=== PATIENT | female | born 2000 | race Caucasian/White ===

== ENCOUNTER → 2023-08-03 | Outpatient (CLI) | payer OTHER, SELFPAY ==
--- NOTE | 2023-08-03 16:52 | RAD_ITS ---
INDICATION: pain EXAMINATION/TECHNIQUE: X-RAY - LEFT XR Ankle 3 VIEWS COMPARISON: FINDINGS: SOFT TISSUES: Lateral soft tissue swelling. No radiopaque foreign body. BONES/JOINTS: No acute fracture or subluxation.. Normal alignment. There is a possible calcific density at the lateral aspect of the talotibial articulation.. No sclerotic or destructive changes observed. RAD/Ankle min 3 Views IMPRESSION: There is a possible calcific density at the lateral aspect of the talotibial articulation. Electronically Signed: Xander March DO at 17:23 EDT ,
== END | disposition home or self-care (01) ==
PROVIDERS: PCP Family Medicine; Referring Provider Physician Assistant; Visit Provider Physician Assistant
DX: S93.402A Sprain of unspecified ligament of left ankle, initial encounter (principal); X58.XXXA Exposure to other specified factors, initial encounter
CPT/HCPCS: 73610

== ENCOUNTER 2023-08-05 09:26 | Outpatient (RCR) | payer OTHER, SELFPAY ==
--- NOTE | 2023-08-08 08:53 | HP.PTEVAL ---
Patient's Visit Information Visit Information Visit Information: LONI VERA is a 23 year old F referred to Physical Therapy by NILES Fields with a diagnosis of L ankle sprain. Date of Evaluation: 08/05/23 Physical Therapist: Hugo Wolfe DPT Visit Plan Frequency: 1x/Week Duration: 4 Weeks Plan: Start with active ROM of L ankle, add in edema control. Progress early WBing as tolerated. Progress to banded exercises as tolerated. pt. to initially trial on own, but to follow up in a few weeks if not improving. Subjective Subjective: Pt. is here today for his initial evaluation with diagnosis of L ankle sprain. Pt. reports 2 days ago she was hitting playing volleyball and landed on someone's foot that was under the net. She landed in an INV positioning. She reports feeling a pop like cracking celery. Pt. has been walking with crutches, but reports feeling better today. Pt. has been icing and using compression. 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 Pt. denies N/T in her LE. Pt. does have lateral ankle pain and marked edema with bruising. Pt. reports overall much better than she was 2 days previously. No other adverse issues going on. Pt. is back to work, but is able to sit with intermittent standing. Pt. is hopeful to get back to all recreational and work activities without limitations. Pain L lateral ankle: Pain Intensity (Out of 10): 3 Pain Intensity Range: 2 and 6 Objective Objective: POSTURE: Pt. has descent posture in stance, slight wt. shift off LLE in stance. Pt. is able to bear wt., but is antalgic during L stance phase. PALPATION: Pt. has tenderness along distal end of fibula. pt. has marked pain at ATFL and CFL regions. Pt. has lateral edema and marked bruising inferior to lateral melleolus. NEURO: Pt. has normal sensation and normal DTR throughout BLEs. ROM: L ankle; AROM: DF 0deg, PF 28deg, INV 14deg, EVR 3deg. Pt. increased pain with EVR and with DF. Tightness noted throughout PROM: DF 3deg, PF 38deg, INV not stressed, EVR 8deg. MMT: L ankle DF 4/5, PF 4/5, EVR 4-/5, INV 4/5. Pt. reports overall doing okay with MMT, but does presents with some weakness. GAIT: PT. ambulates with crutches with decent WBing throughout BLEs. Pt. is slightly more flat footed with L foot, minimal rocker moment noted. Pt. has increased antalgic pattern without use of AD. STAIRS: Step to pattern with use of 1 HR. SPECIAL TESTING: Pt. has pain with anterior draw, but no marked laxity. Pt. is swollen and guarded with testing, difficult to full assess ligament laxity. Same with talar tilt to assess CFL. Balance/Special Test Scores Lower Extremity Functional Score: 49 Goals Goal 1:: LTG: Pt. to be I with HEP for L ankle ROM and strengthening. Goal Time Frame: 4-6 Weeks Goal 2:: STG: Pt. to have decreased edema, symmetrical to R ankle. Goal Time Frame: 2 Weeks Goal 3:: LTG: PT. to have increased L ankle ROM symmetrical to R side. Goal Time Frame: 2-4 Weeks Goal 4:: STG: Pt. to progress with walking to no AD without use of crutches. Goal Time Frame: 2 Weeks Goal 5:: LTG: Pt. to have 5/5 strength throughout L ankle. Goal Time Frame: 4-6 Weeks Rehabilitation Potential Physical Therapy Diagnosis: Pt. bailey signs and symptoms consistent with a grade II L lateral ankle sprain. Hard to fully test ligament laxity, but bruising suggest some tearing. Pt. would benefit from PT to address her hypomobility, weakness, swelling and increased pain. Rehabilitation Potential: Excellent Anticipated Interventions Patient/Client Instruction: Educate patient on: Condition, Plan of Care, Risk Factors and Benefits of Fitness Program For the Purpose of:: To facilitate caregiver knowledge, To improve self management, To prevent re-injury and To improve ability to perform tasks related to life management Therapeutic Exercise to Include: Strength training, Power training, Flexibilty training, Gait and locomotor training, Passive ROM and Active ROM For the Purpose of:: To decrease pain, To increase ROM, To improve nutrient delivery to tissue, To increase oxygenation perfusion, To improve muscle performance and motor function, To improve ability to perform ADL's, To improve gait and locomotor functions, To improve health of tissue, To decrease soft tissue restriction and To increase flexibility/ROM Cryotherapy (ice pack, ice massage): Yes Vasopneumatic device: Yes For the Purpose of:: To decrease pain, To decrease swelling/inflammation and To increase ROM Text: Thank you for the opportunity to evaluate your patient. For Medicare and Medicare HMO plans, please review the plan of care and approve it. It will need to be FAXED BACK to us at [phone] for Medicare purposes. For Medicare only, by signing this I certify the plan of care. Please let me know if there are questions or concerns regarding this plan of care. Physician Signature: Date:
== END 2023-08-05 19:00 | disposition home or self-care (01) ==
LOC: PT 09:26
PROVIDERS: PCP Family Medicine; Referring Provider Physician Assistant; Visit Provider Physician Assistant
DX: S93.402D Sprain of unspecified ligament of left ankle, subsequent encounter (principal)
CPT/HCPCS: 97161

== ENCOUNTER → 2023-12-12 | Outpatient (CLI) | payer OTHER, SELFPAY ==
[2023-12-12 15:37] LABS: Color, Urine Yellow (Yellow); Glucose, Dipstick Normal (Normal); Ketone-Dipstick Negative (Negative); Leukocyte Esterase-Dipstick 500 /ul (Negative); Nitrite-Dipstick Positive (Negative); Occult Blood-Urine 25 /ul (Negative); Protein-Dipstick 30 mg/dl (Negative); Urine Clarity Sl. Cloudy (Clear); Urine Urobilinogen 8 mg/dl (Normal)
[2023-12-12 16:11] LABS: Urine Bilirubin Dipstick 3 mg/dL (Negative)
== END | disposition home or self-care (01) ==
LOC: MTLAB 13:43
PROVIDERS: PCP Family Medicine; Referring Provider Physician Assistant; Visit Provider Physician Assistant
DX: R39.9 Unspecified symptoms and signs involving the genitourinary system (principal)
CPT/HCPCS: 81002; 87086; 87088

== ENCOUNTER → 2023-12-15 | Outpatient (CLI) | payer OTHER, SELFPAY ==
--- NOTE | 2023-12-15 13:13 | RAD_ITS ---
INDICATION: sob on exertion EXAMINATION/TECHNIQUE: X-RAY - XR Chest 2 Views COMPARISON: None. FINDINGS: Mild hyperinflation. Lungs are otherwise clear. The cardiomediastinal silhouette is unremarkable. No pleural effusion or pneumothorax. No acute osseous abnormalities. RAD/Chest PA and Lateral IMPRESSION: Mild hyperinflation which can be seen in asthma. Electronically Signed: Sen Brooks MD at 22:28 EST ,
--- OUTSIDE RECORDS SUMMARY | 2023-12-15 13:53 | XMS RPT_ITS | CCD ---
Author Name Unknown Address [address] [place] [address] Organization [facility] Care Team Providers Care Photographic Laboratory Technician Name Role Phone Adams PEDIATRIC UROLOGIST, Bindyaben Primary Care Provider Dread Corona MD Unavailable ADAMS, BINDYABEN Primary Care Unavailable BARRIOS, RODOLFO~[id number] BARRIOS Attending Un available BARRIOS, RODOLFO~[phone] BARRIOS Referring Un available ADAMS, BINDYABEN Primary Care Unavailable DREAD CORONA Attending Unavailable ADAMS, BINDYABEN Primary Care Unavailable SEAGRAVES BERTHA, BERTHA~[id number] SEAGRAVES Attending Unavailable SEAGRAVES BERTHA, BERTHA~[id number] SEAGRAVES Referring Unavailable ADAMS, BINDYABEN Attending Unavailable ADAMS, BINDYABEN Primary Care Unavailable ORDER, TRANSCRIBE Attending Unavailable ORDER, TRANSCRIBE Referring Unavailable ADAMS, BINDYABEN Primary Care Unavailable ADAMS, BINDYABEN Attending Unavailable ADAMS, BINDYABEN Referring Unavailable ADAMS, BINDYABEN Primary Care Unavailable BARRIOS, RODOLFO~[id number] BARRIOS Attending Un available BARRIOS, RODOLFO~[phone] BARRIOS Referring Un available ADAMS, BINDYABEN Primary Care Unavailable SEAGRAVES BERTHA, BERTHA~[id number] SEAGRAVES Attending Unavailable SEAGRAVES BERTHA, BERTHA~[id number] SEAGRAVES Referring Unavailable ADAMS, BINDYABEN Primary Care Unavailable HERRERA, XOCHILT P Attending Unavailable ADAMS, BINDYABEN Primary Care Unavailable HERRERA, XOCHILT P Attending Unavailable HERRERA, XOCHILT P Referring Unavailable ADAMS, BINDYABEN Primary Care Unavailable ORDER, TRANSCRIBE Attending Unavailable ADAMS, BINDYABEN Primary Care Unavailable Jennifer MONTENEGRO, Ildefonso Baltazar Unavailable [phone] Physical Therapy, Israel Cardenas Unavailable Mehnaz VP MEDICAL, Tonya Unavailable Fernando WRIGHT, Demetra Santos Unavailable [phone] Steven MONTENEGRO, Gustavo Nava Unavailable Thea WRIGHT, Denia Egan Unavailable Pura Wyatt MA Unavailable Unavailable Steve VP MEDICAL, Esperanza Unavailable Unavailable King YELITZA-C, Jhonatan Mace Unavailable [phone] Shira CARRILLO, Denia Baltazar Unavailable Unavaila luis Kate VP MEDICAL, Coty Unavailable Unavailable Aleyda CARRILLO, Ruth Y Unavailable Unavailable Valentino WRIHGT, Martin Santos Unavailable Raghu (Sukumar), Zac Unavailable Unavailab le Richert VP MEDICAL, Brooklynn Roach Unavailable Unavailab le Evy VP MEDICAL, Elizabeth Cassandra Unavailable Unavailab le Sophia VP MEDICAL, Ciera Streeter Unavailable Unavailab le Uptain CNM, Crystal K Unavailable Vess VP MEDICAL, Divya L Unavailable Unavailable Wengerd VP MEDICAL, Aurora Unavailable Unavailabl e Zaugg VP MEDICAL, Laila Unavailable Unavailable Unavailable Unavailable ILDEFONSO WYNN Consulting Unavailable MARTIN AVELAR Admitting Unavailable MARTIN AVELAR Primary Care Unavailable MARTIN AVELAR Attending Unavailable PROVIDER, UNKNOWN Consulting Unavailable PROVIDER, UNKNOWN Consulting Unavailable PROVIDER, UNKNOWN Consulting Unavailable Urologist Provider Unavailable Unavailable Medications Current Medications Medication Drug Class(es) Dates Sig (Normalized) Sig (Original) [id number] 200 actuat albuterol 0.09 mg/actuat metered dose inhaler (11 sources) beta2-Adrenergic Agonist Start: 10-07-2023 take 2 puff(s) by inhalation every four to six hours as needed Ventolin HFA 90 mcg/actuation aerosol inhaler ; 2 (two) puff(s) every 4-6hrs prn for 0 days Quantity: 1 {Each} Refills: 1 Ordered: 07-Oct-2023 ALFREDO Wyatt Start: 07-Oct-2023 Completed/Discontinued Medications Medication Drug Class(es) Dates Sig (Normalized) Sig (Original) amoxicillin 875 mg / clavulanate 125 mg oral tablet (9 sources) Penicillin-class Antibacterial Start: 04-06-2018 End: 11-28-2023 amoxicillin 875 mg-potassium clavulanate 125 mg tablet ; 1 (one) tablet BID for 10 days Quantity: 20 {Tablet} Refills: 0 Ordered: 18-Nov-2023 KYLE Avelar Start: 18-Nov-2023 End: 28-Nov-2023 Status: Inactive Problems Active Problems Problem Classification Problem Date Documented Date Episodic/Chronic Acute and chronic tonsillitis (1 source) Acute tonsillitis, unspecified; Translations: [Acute tonsillitis, unspecified] Onset: 12-09-2022 Episodic Acute bronchitis (8 sources) Acute bronchitis; Translations: [Acute bronchitis, unspecified] 05-28-2020 Episodic Anxiety disorders (20 sources) Generalized anxiety disorder; Translations: [Generalized anxiety disorder] 11-18-2023 Chronic Asthma (12 sources) Exercise-induced asthma; Translations: [Exercise induced bronchospasm] 11-18-2023 Chronic Conditions associated with dizziness or vertigo (4 sources) Labyrinthitis, unspecified 03-24-2011 Episodic Genitourinary symptoms and ill-defined conditions (20 sources) Urinary symptoms ; Translations: [Unspecified symptoms and signs involving the genitourinary system] 11-18-2023 Episodic Immunizations and screening for infectious disease (5 sources) Contact with and (suspected) exposure to other viral communicable diseases; Translations: [Need for prophylactic vaccination and inoculation against influenza] Onset: 12-23-2021 09-15-2012 Episodic Inflammation; infection of eye (except that caused by tuberculosis or sexually transmitteddisease) (4 sources) Conjunctivitis; Translations: [Other mucopurulent conjunctivitis, left eye] 10-07-2016 Episodic Influenza (8 sources) Influenza; Translations: [Influenza due to unidentified influenza virus with other respiratory manifestations] 05-28-2020 Episodic Lymphadenitis (4 sources) Cervical lymphadenopathy; Translations: [Localized enlarged lymph nodes] Onset: 07-20-2022 Episodic Malaise and fatigue (4 sources) Fatigue; Translations: [Other fatigue] 05-15-2014 Episodic Menstrual disorders (8 sources) Irregular periods; Translations: [Irregular menstruation, unspecified] 05-28-2020 Chronic Nonmalignant breast conditions (4 sources) Breast lump; Translations: [Unspecified lump in unspecified breast] 10-27-2012 Episodic Other aftercare (17 sources) Patient encounter status; Translations: [Other termite treater helper (current) drug therapy] Episodic Other infections; including parasitic (4 sources) H/O: chickenpox; Translations: [Personal history of other infectious and parasitic diseases] 05-28-2020 Episodic Other lower respiratory disease (9 sources) Dyspnea on exertion; Translations: [Shortness of breath] 11-18-2023 Episodic Other lower respiratory disease (4 sources) Cough; Translations: [Cough] 01-17-2017 Episodic Other skin disorders (9 sources) Acne vulgaris; Translations: [Acne vulgaris] Episodic Other upper respiratory disease (4 sources) Allergic disposition; Translations: [Other allergic rhinitis] 10-07-2016 Chronic Other upper respiratory disease (4 sources) Seasonal allergic rhinitis; Translations: [Other seasonal allergic rhinitis] 09-24-2015 Chronic Other upper respiratory infections (8 sources) Sinusitis; Translations: [Chronic sinusitis, unspecified] 12-27-2017 Chronic Other upper respiratory infections (20 sources) Sore throat symptom; Translations: [Acute pharyngitis, unspecified] Onset: 08-11-2022 Episodic Otitis media and related conditions (8 sources) Otitis media of bilateral ears; Translations: [Otitis media, unspecified, bilateral] 11-18-2023 Episodic Residual codes; unclassified (12 sources) Finding of body mass index; Translations: [Body mass index (BMI) pediatric, 5th percentile to less than 85th percentile for age] 05-28-2020 Episodic Residual codes; unclassified (8 sources) Body mass index 20-24 - normal; Translations: [Body mass index (BMI) 22.0-22.9, adult] 05-28-2020 Episodic Residual codes; unclassified (8 sources) Up-to-date with immunizations; Translations: [Personal history of other drug therapy] 11-18-2023 Episodic Residual codes; unclassified (8 sources) Influenza vaccination declined; Translations: [Immunization not carried out because of patient refusal] 05-28-2020 Episodic Residual codes; unclassified (8 sources) Non-smoker; Translations: [Other specified health status] 05-28-2020 Episodic Skin and subcutaneous tissue infections (4 sources) Impetigo; Translations: [Impetigo, unspecified] 12-13-2016 Episodic Sprains and strains (4 sources) Strain of knee; Translations: [Strain of unspecified muscle(s) and tendon(s) at lower leg level, left leg, initial encounter] 06-02-2016 Episodic Unclassified (4 sources) control (initial visit) - The patient's motivation for contraception is the prevention of . Parental consent was not necessary. Previous methods of contraception have included: oral contraceptives (sprintec). The prior methods were considered to be successful. Previous pregnancies: none. Previous abortions/miscarriag es: none. The patient denies breast discharge, headaches, jaundice, overdue menses, menstrual irregularities, vaginal bleeding or vaginal discharge. There is no STD history pertinent to this complaint. Note for Contraception : Was previously on oral contraception (sprintec). States she gained a lot of weight with pill and knows she does not want pill again.Patient will be moving to [place] in February. States she is unsure which form of contraception she is wanting at this time.She is not currently on a form of contraception. She reports normal cycles. She is not currently sexually active. 12-23-2022 Unclassified (4 sources) Vertigo - The onset of the vertigo has been sudden and has been occurring in a persistent pattern for 10 days. The course has been constant. The vertigo is characterized as lightheadedness, spinning of the environment and feeling in the head. The symptoms include loss of balance and headache, but do not include difficulty walking, hearing loss, tinnitus, nausea or vomiting. There has been no associated anxiety or fever. Note for Vertigo : -Chronic allergies and stuffiness. Using Claritin and nose spray. Also states she is light sensitive. 09-24-2015 Unclassified (1 source) asthma - Pt feels short of breath (very much with exercise but sometimes even when talking to people or eating). 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 Previously told she had exercise induced asthma - no history of this then in high school and very active. SOB has been since 2019.No heartburn.No night sweats or chills.Will have pain in LUQ/epigastric area at times - that has only been for the past week or so. Pt has some swollen lymph nodes on the right side of her neck. Pt had some dysuria yesterday but none today. 12-15-2023 Urinary tract infections (2 sources) Recurrent urinary tract infection; Translations: [Urinary tract infection, site not specified] 12-14-2023 Episodic Past or Other Problems Problem Classification Problem Date Documented Date Episodic/Chronic Other aftercare (1 source) Other intermediate (current) drug therapy; Translations: [Other termite treater helper (current) drug therapy] Onset: 05-26-2022 Episodic Other skin disorders (1 source) Acne vulgaris; Translations: [Acne vulgaris] Onset: 05-26-2022 Episodic Unclassified (4 sources) UTI - Symptoms include urinary urgency. Note for UTI : Pt was treated for pyelonephritis and is still having urgency, pt denies any pain. No fever or back pain. Has nexplanon so has menstrual irregularity from that. Negative test. Feels a pressure and has less of it after urination.Denies constipation. 11-18-2023 Unclassified (4 sources) UTI - Symptoms include dysuria, urinary frequency, urinary urgency and flank pain (right flank), but do not include hematuria, malodorous urine, abdominal pain or back pain. The pain is located in the right flank. There is no radiation. The patient describes the pain as sharp and burning. Onset was gradual 4 day(s) ago. There is no known event that preceded symptom onset. The symptoms occur constantly. The patient describes this as moderate in severity and worsening. Symptoms are not relieved by phenazopyridine. Associated symptoms include fever (Patient reports feeling feverish, but has not checked her temperature.), chills and nausea, but do not include vomiting, urinary incontinence, urethral discharge or vaginal discharge. Note for UTI : Patient last took AZO yesterday.She was treated for a UTI last month with Bactrim and reports complete resolution of her symptoms at the time. 11-04-2023 Unclassified (2 sources) UTI - Symptoms include dysuria, urinary frequency, urinary urgency and abdominal pain, but do not include hematuria, malodorous urine, flank pain or back pain. The pain is located in the suprapubic area. There is no radiation. The patient describes the pain as aching and burning. Onset was gradual 3 day(s) ago. There is no known event that preceded symptom onset. The symptoms occur constantly. The patient describes this as mild and worsening. Associated symptoms do not include fever, chills, nausea, vomiting or vaginal discharge. Note for UTI : Patient has no history of UTIs and denies any new sexual contacts. 10-07-2023 Unclassified (2 sources) [ADDITIONAL REASON] Concern - Patient also has a concern today over increasing anxiety. She has been treated for anxiety and depression in the past and was most recently treated with escitalopram. She reports having good success with escitalopram, but feeling like it did dull her emotions. She has been off of her medication for at least 6 months, but has not a recent increase in anxiety. She reports daily anxiety symptoms with associated shortness of breath at times. 10-07-2023 Unclassified (4 sources) control (initial visit) - The patient's motivation for contraception is the prevention of . The patient is requesting a contraceptive implant. Parental consent was not necessary. Previous methods of contraception have included: oral contraceptives. The prior methods were considered to be successful yet inconvenient. Previous pregnancies: none. Previous abortions/miscarriage s: none. There is no STD history pertinent to this complaint. Note for Contraception : Pt denies any chance of at this time 02-21-2023 Unclassified (4 sources) Follow up for multiple chronic conditions - The patient is here for follow-up of anxiety. 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 She did notice that this feeling resolved once she stopped the medication.). The patient has an active lifestyle but no regular exercise program. The patient's dietary compliance is fairly good usually adhering to recommendations. The patient states that breathing effort is more difficult (both chest pain and SOB related to anxiety. She does not feel these symptoms if she is not feeling anxious.), weight has increased (up 15 lbs) and headaches are rarely noted. Note for Multiple chronic conditions follow-up : Patient reports that she has noted an increase in her anxiety over the last 3-4 months. She reports symptoms of nervousness, overthinking, and worrying most days. She will at times have episodes of shortness of breath and cold sweats when she is feeling anxious. She denies any suicidal thoughts. She is nervous about returning to school with her anxiety the way it currently is. She has reached out to counseling services at her school. She will be graduating in February. 06-29-2022 Unclassified (2 sources) Well adult female - The patient feels well with no complaints. The patient has a balanced diet. The patient exercises daily. The patient sleeps 8 hours per night. Note for Well adult female : Reviewed by Demetra King PA-C. 05-28-2020 Unclassified (2 sources) [ADDITIONAL REASON] Anxiety - The onset of the anxiety has been acute and has been occurring in an intermittent pattern for 4 months. The anxiety is characterized as nervousness and extreme fear. There are no specific phobias. There were no precipitating factors. The symptoms have been associated with breathlessness, chest pain, dizziness, feeling of sadness, headache, lightheadedness, palpitations, sweating and tremors, but have not been associated with migraine, mutism, nausea, paresthesias, paralysis, personality change, retching, suicidal thoughts, tetany, vomiting or weight loss. Note for Anxiety : Patient states that she has been having anxiety for some time, but it has worsened recently with getting ready to start college. She reports feeling anxious and worried most days and that she recently had a panic attack. During her panic attack, she describes that she had shortness of breath, sweating, and a racing heart. She expresses interest in taking something to help with her anxiety at this time. 05-28-2020 Unclassified (4 sources) Breathing trouble - The onset of the breathing trouble has been gradual and has been occurring in a persistent pattern for 6 weeks. The breathing trouble is mild to moderate. It is described as tightness. The breathing trouble occurs on exertion. Note for Breathing trouble : -Peak flow 300:370:280 01-30-2020 Unclassified (4 sources) Cold Symptoms - Symptoms include nasal congestion (improving), runny nose, scratchy throat, dry cough (s.o.b. at times especially when playing volleyball), productive cough and general malaise, but do not include sneezing, ear pain, ear fullness, wheezing or fever. The onset was gradual 2 week(s) ago. The symptoms occur constantly. The patient describes this as moderate in severity and worsening (cough...feels sinuses have improved with augmentin). Current treatment includes non-prescription cold medication and antibiotics (augmentin [phone] from [facility] 10 days ago. Pt. still has 5 pills left.). Risk factors do not include smoking. The patient has not been exposed to an individual with similar symptoms. Medical history includes recurrent sinusitis, but patient denies history of asthma or tonsillectomy. 08-01-2019 Unclassified (4 sources) Well child visit #4 - 13 to 17 years - The child is here for a 16 to 17 year well-child visit. The primary caregiver is the mother and father. Family status: coping adequately. There are no behavioral problems. The patient has a balanced diet and is eating a variety of foods. The child sleeps 8 hours at night. Menstruation: regular periods (on ocp). The child performs well in school, interacts well with peers and participates in extracurricular activities. 05-30-2019 Unclassified (4 sources) Well child visit #4 - 13 to 17 years - The child is here for a 16 to 17 year well-child visit. The primary caregiver is the mother and father. Help and support are being provided by the father. Family status: coping adequately. There are no behavioral problems. The patient has a balanced diet and is eating a variety of foods. There are no eating difficulties. Meals/day: 3. The child sleeps 8 hours at night. Menstruation: irregular periods. The child performs well in school, interacts well with peers and participates in extracurricular activities. Safety measures taken include appropriate use of safety belts and home smoke detectors. 06-08-2018 Unclassified (4 sources) Cold Symptoms - Symptoms include nasal congestion, runny nose, purulent discharge, ear pain, ear fullness, sore throat, dry cough and headache, but do not include sneezing, fever, chills or general malaise. The onset was gradual 1 week(s) ago. The symptoms occur frequently. The patient describes this as moderate in severity and unchanged. Current treatment includes non-prescription cold medication and allergy medications. Risk factors do not include smoking. The patient has not been exposed to an individual with similar symptoms. Medical history includes seasonal allergies, but patient denies history of recurrent sinusitis, asthma, tonsillectomy or recurrent ear infections. 04-06-2018 Unclassified (4 sources) Cold Symptoms - Symptoms include nasal congestion, runny nose, ear pain, ear fullness (pressure), productive cough, chills, general malaise (body aches, dizziness) and headache. The onset was 2 day(s) ago (Was seen on 12/26/2017 for sinusitis, was given Cephalexin. Mother reports that she did not read the directions correctly, was giving 2 tabs once daily instead of 2 tabs BID.). The patient describes this as moderate in severity and worsening. Current treatment includes non-prescription cold medication (Advil cold and sinus) and antibiotics. The patient has been exposed to an individual with a cough (was exposed to a friend who tested postive for the flu 2 days ago). Medical history includes recurrent sinusitis, but patient denies history of asthma or tonsillectomy. 01-10-2018 Unclassified (4 sources) Acne - The onset of the acne has been gradual and has been occurring for years. Note for Acne : -Went to [facility] and tried some therapies. They think it is hormone related and suggested eval with PCP for OCP. She is using a special soap from their boutique. Her menses are irregular. 12-27-2017 Unclassified (4 sources) Well child visit #4 - 13 to 17 years - The child is here for a 15 to 16 year well-child visit. The primary caregiver is the mother and father. Help and support are being provided by the grandmother (is accompaned by grandmother today). Family status: coping adequately. There are no behavioral problems. The patient has a balanced diet and is eating a variety of foods. There are no eating difficulties. Meals/day: 3 (with snacks). The child performs well in school, interacts well with peers and participates in extracurricular activities (volleyball and softball). Note for Well child visit #4 - 13 to 17 years : Is here today for sports physical. Was seen by the eye doctor in the past year. Reviewed by ALEX. 06-09-2017 Unclassified (4 sources) Cold Symptoms - Symptoms include nasal congestion, ear fullness, scratchy throat, hoarseness, dry cough and general malaise, but do not include fever. The onset was gradual 1 week(s) ago. The patient describes this as moderate in severity and worsening. The patient is not currently being treated for this problem. Risk factors do not include child in daycare or smoking. The patient has not been exposed to an individual with similar symptoms or secondhand smoke. Medical history includes seasonal allergies. 01-12-2017 Unclassified (4 sources) Cold Symptoms - Symptoms include nasal congestion and runny nose, but do not include fever. The onset was sudden 1 day(s) ago. The symptoms occur frequently. The patient describes this as mild and unchanged. The patient is not currently being treated for this problem. The patient has not been exposed to an individual with similar symptoms. Medical history includes seasonal allergies. Note for Upper respiratory infection : pinkeye, awoke with drainage from the left eye this morningshe got contacts last week and mom thought that this was from the contacts 10-07-2016 Unclassified (3 sources) Knee pain - The onset of the knee pain has been sudden following an incident not at work and has been occurring for 6 days. Note for Knee pain : -Lowgap knee cap pop to the side while playing softball. She reduced it and has minimal pain but has some swelling. She is asking aobut strengthening exercises. She is wearing a brace. 06-02-2016 Unclassified (3 sources) [ADDITIONAL REASON] Well child visit #4 - 13 to 17 years - The child is here for a 14 to 15 year well-child visit. The primary caregiver is the mother and father. Family status: coping adequately. There are no behavioral problems. The patient is eating a variety of foods. The child performs well in school, interacts well with peers and participates in extracurricular activities. 06-02-2016 Unclassified (4 sources) Well child visit #4 - 13 to 17 years - The child is here for a 13 to 14 year well-child visit. The primary caregiver is the mother and father. The primary caregiver has no significant help or support. Family status: coping adequately. There are no behavioral problems. The patient has a balanced diet. There are no eating difficulties. Meals/day: 4. The child sleeps 9 hours at night. The child performs well in school, interacts well with peers and participates in extracurricular activities. Safety measures taken include appropriate use of safety belts, home smoke detectors and avoiding exposure to passive smoke. Note for Well child visit #4 - 13 to 17 years : reviewed by B 06-18-2015 Unclassified (4 sources) Well child visit #3 - 4 to 12 years - The child is here for a 13 year well-child visit. The primary caregiver is mother and father. Family status: coping adequately. There are no behavioral problems. The patient has a balanced diet and takes supplemental vitamins. There are no eating difficulties. The child sleeps 8 hours at night. The child performs well in school, interacts well with peers and participates in extracurricular activities. Note for Well child visit #3 - 4 to 12 years : -Sports physical. 05-15-2014 Unclassified (4 sources) Cold Symptoms - Symptoms include nasal congestion, runny nose, ear pain, ear fullness, sore throat, dry cough, fever (low grade) and chills. The onset was sudden 3 day(s) ago. The symptoms occur constantly. The patient describes this as moderate in severity and unchanged. Current treatment includes non-prescription cold medication. The patient has been exposed to an individual with an upper respiratory infection. Note for Upper respiratory infection : reviewed by [facility] 01-16-2013 Unclassified (4 sources) Breast pain - The breast pain is in the right breast. The onset of the breast pain has been acute and has been occurring in an intermittent pattern for 3 months. The course has been increasing. The breast pain is described as moderate. Note for Breast pain : Says that she noticed it a few months ago. Says that it used to ache if she hit it or slept on it but after she had the flu last week the pain increased. Not sure if there has been a change in the size of the lump - thinks it may have gotten smaller. No drainage from the nipple or overlying discoloration. Hasn't started her period yet. No history of injury. No family history of breast cancer. Her dad had a breast lump in the past that was scar tissue from an injury and had to be surgically removed. 10-27-2012 Unclassified (4 sources) Dizziness - The onset of the dizziness has been sudden and has been occurring in an intermittent pattern for 2 days. The course has been recurrent. The dizziness is characterized as spinning of the environment and feeling in the head. The dizziness is precipitated by position change. There has been associated nausea (belly ache) and headache. The dizziness is relieved by lying still. The dizziness is exacerbated by walking. 03-24-2011 Unclassified (2 sources) Concern - Patient also has a concern today over increasing anxiety. She has been treated for anxiety and depression in the past and was most recently treated with escitalopram. She reports having good success with escitalopram, but feeling like it did dull her emotions. She has been off of her medication for at least 6 months, but has not a recent increase in anxiety. She reports daily anxiety symptoms with associated shortness of breath at times. 10-07-2023 Unclassified (2 sources) [ADDITIONAL REASON] UTI - Symptoms include dysuria, urinary frequency, urinary urgency and abdominal pain, but do not include hematuria, malodorous urine, flank pain or back pain. The pain is located in the suprapubic area. There is no radiation. The patient describes the pain as aching and burning. Onset was gradual 3 day(s) ago. There is no known event that preceded symptom onset. The symptoms occur constantly. The patient describes this as mild and worsening. Associated symptoms do not include fever, chills, nausea, vomiting or vaginal discharge. Note for UTI : Patient has no history of UTIs and denies any new sexual contacts. 10-07-2023 Unclassified (2 sources) Anxiety - The onset of the anxiety has been acute and has been occurring in an intermittent pattern for 4 months. The anxiety is characterized as nervousness and extreme fear. There are no specific phobias. There were no precipitating factors. The symptoms have been associated with breathlessness, chest pain, dizziness, feeling of sadness, headache, lightheadedness, palpitations, sweating and tremors, but have not been associated with migraine, mutism, nausea, paresthesias, paralysis, personality change, retching, suicidal thoughts, tetany, vomiting or weight loss. Note for Anxiety : Patient states that she has been having anxiety for some time, but it has worsened recently with getting ready to start college. She reports feeling anxious and worried most days and that she recently had a panic attack. During her panic attack, she describes that she had shortness of breath, sweating, and a racing heart. She expresses interest in taking something to help with her anxiety at this time. 05-28-2020 Unclassified (2 sources) [ADDITIONAL REASON] Well adult female - The patient feels well with no complaints. The patient has a balanced diet. The patient exercises daily. The patient sleeps 8 hours per night. Note for Well adult female : Reviewed by Demetra King PA-C. 05-28-2020 Unclassified (1 source) Well child visit #4 - 13 to 17 years - The child is here for a 14 to 15 year well-child visit. The primary caregiver is the mother and father. Family status: coping adequately. There are no behavioral problems. The patient is eating a variety of foods. The child performs well in school, interacts well with peers and participates in extracurricular activities. 06-02-2016 Unclassified (1 source) [ADDITIONAL REASON] Knee pain - The onset of the knee pain has been sudden following an incident not at work and has been occurring for 6 days. Note for Knee pain : -Lowgap knee cap pop to the side while playing softball. She reduced it and has minimal pain but has some swelling. She is asking aobut strengthening exercises. She is wearing a brace. 06-02-2016 Results Test Name Value Interpretation Reference Range Facil ity Vital Signs Date Time Vital Sign Value Performing Clinician Faci lity 12-15-2023 08:51-0500 Body height 167.64 cm Elizabeth Ratliff LPN [facility], [facility].; [employer] 12-15-2023 08:51-0500 Body mass index (BMI) [Ratio] 22.92 kg/m2 [facility], [facility].; [employer] 12-15-2023 08:51-0500 Body surface area Derived from formula 1.73 m2 Elizabeth Ratliff LPN [facility] [employer] 12-15-2023 08:51-0500 Body temperature 98.7 [degF] Elizabeth Ratliff LPN [facility] [employer] [facility].; [employer] Encounters Encounter Date Encounter Type Care Provider Facility Start: 12-15-2023 End: 12-15-2023 Office outpatient visit 15 minutes Ildefonso Wynn MD [facility] Start: 12-14-2023 End: 12-14-2023 Orders Ildefonso Wynn MD Work Phone: [place] [employer] [facility] [employer] [facility] Start: 12-12-2023 ambulatory ILDEFONSO WYNN [facility] Start: 12-12-2023 End: 12-12-2023 Orders Ildefonso Wynn MD [facility] Phone[facility] [facility] Start: 11-18-2023 End: 11-18-2023 Office outpatient visit 15 minutes Ildefonso Wynn MD [facility] [employer] [facility] Start: 11-04-2023 End: 11-04-2023 Office outpatient visit 15 minutes Ildefonso Wynn MD Work Phone: [facility] Start: 10-07-2023 End: 10-07-2023 Office outpatient visit 25 minutes Ildefonso Wynn MD [facility] [employer] [facility] Start: 02-21-2023 End: 02-21-2023 Procedure Ildefonso Wynn MD [facility] Start: 12-23-2022 End: 12-23-2022 Office outpatient visit 15 minutes Ildefonso Wynn MD [facility] [employer] [facility] Start: 12-09-2022 End: 12-10-2022 ambulatory BERTHA~[id number] [facility] Start: 12-09-2022 End: 12-09-2022 Subsequent hospital visit by physician Bertha Michael APRN Work Phone: [facility] Procedures Date Procedure Procedure Detail Performing Clinician Start: 11-04-2023 End: 11-04-2023 No Known Past Surgical History Pura Wyatt MA Start: 02-21-2023 End: 02-21-2023 Insj non-biodegradable drug delivery implant Crystal Kyra Lucie ALAN Work Phone: Start: 12-09-2022 INFLUENZA A & B, SWAB/NW Bertha Michael APRN Work Phone: Start: 12-09-2022 SARS-COV-2 AG, QL Bertha Michael APRN Work Phone: Start: 12-09-2022 STREP-A SCREEN Bertha palomino APRN Work Phone: Start: 07-20-2022 CBC panel - Blood by Automated count Rodolfo Barrios APRN Work Phone: Start: 07-20-2022 Comprehensive metabo lic 2000 panel - Serum or Plasma Rodolfo Barrios APRN Work Phone: Start: 07-20-2022 MONO SEROLOGY Rodolfo cox APRN Work Phone: Start: 07-20-2022 TSH, HIGH SENSITIVITY K lucius Barrios APRN Work Phone: Start: 02-11-2022 Hepatic function 200 0 panel - Serum or Plasma Transcribe Order Start: 02-11-2022 Lipid panel Transcribe Order Start: 01-30-2020 End: 01-30-2020 Spmtry w/vc expiratory med w/wo mxml vol vntj Ildefonso Wynn MD Work Phone: Start: 05-30-2019 End: 05-30-2019 Body mass index documented Ildefonso gonzalez MD Work Phone: Start: 05-30-2019 End: 05-30-2019 Screening test visual acuity quantitative bilat Ildefonso Wynn MD Work Phone: Start: 06-08-2018 End: 06-08-2018 Screening test visual acuity quantitative sonjaat Ildefonso Wynn MD Work Phone: Start: 01-10-2018 End: 01-10-2018 Body mass index documented Ildefonso gonzalez MD Work Phone: Start: 12-26-2017 End: 12-26-2017 Body mass index documented Ildefonso gonzalez MD Work Phone: Start: 12-26-2017 End: 12-26-2017 Flu imm no admin doc carlene Ildefonso soto MD Work Phone: Start: 12-26-2017 End: 12-26-2017 Flu vaccine refused Pura Wyatt MA Start: 01-17-2017 End: 01-19-2017 Chest x-ray Ildefonso Egan Work Phone: Start: 05-31-2016 End: 05-31-2016 Screening test visual acuity quantitative bilat Ildefonso Wynn MD Work Phone: Start: 06-18-2015 End: 06-18-2015 Screening test visual acuity quantitative sonjaat Gustavo Harris MD Work Phone: Start: 05-15-2014 End: 05-15-2014 Screening test visual acuity quantitative sonjaat Ildefonso Wynn MD Work Phone: Start: 10-27-2012 End: 10-27-2012 Us exam, breast(s) Martin Sanchez Work Phone: Plan of Treatment Date Care Activity Detail Author Start: 06-25-2031 DTAP/TDAP/TD VACCINE (3 - Td or Tdap) DTAP/TDAP/TD VACCINE (3 - Td or Tdap) [facility] Start: 12-15-2023 Brncdilat rspse spmtry pre&post-brncdilat admn PFT Protocol (10869) -- not in office Start: 15-Dec-2023 Intent [employer] Start: 12-15-2023 Chest x-ray CHEST X-RAY, PA AND LATERAL (04065) Start: 15-Dec-2023 Intent [employer] Start: 12-15-2023 Assay of thyroid stimulating hormone tsh TSH W/ REFL FREE T4 (44926,49573) (24993) Start: 15-Dec-2023 9:15 Request [employer] [employer]. Start: 12-15-2023 Comprehensive metabolic panel CMP w/ GFR* (50796) Start: 15-Dec-2023 9:15 Request [employer] Start: 12-15-2023 Blood count complete auto&auto difrntl wbc CBC, PLATELETS & AUT DIFF (F) (10519) Start: 15-Dec-2023 9:15 Request [employer] Start: 12-12-2023 Urnls dip stick/tablet reagent auto microscopy URINALYSIS, W/ REFLEX TO CULTURE (36185) Start: 12-Dec-2023 Request [employer] Start: 11-18-2023 Iadna chlamydia trachomatis amplified probe tq CHLAMYDIA TRACHOMATIS RNA,TMA-URINE (20419) Start: 18-Nov-2023 16:13 Request [employer] Start: 11-18-2023 Iadna neisseria gonorrhoeae amplified probe tq NEISSERIA GONORRHOEAE RNA,TMA- URINE (30572) Start: 18-Nov-2023 16:13 Request [employer].; [employer] Start: 11-18-2023 Culture bacterial quanttative colony count urine Urine Culture (06855) Start: 18-Nov-2023 13:12 Request [employer].; [employer]. Start: 07-22-2022 Influenza vaccination [facility] Start: 03-13-2022 COVID-19 Vaccine (3 - Booster for Pfizer series) COVID-19 Vaccine (3 - Booster for Pfizer series) [facility] Start: 07-22-2021 Influenza vaccination INFLUENZA VACCINE [facility] Start: 2004 ANNUAL WELLNESS EXAM ANNUAL WELLNESS EXAM [facility] Start: 2001 Screening for Chlamydia trachomatis CHLAMYDIA SCREEN [facility] Start: 2001 Screening for malignant neoplasm of cervix PAP SMEAR EVERY 3 YR (Cervical Cancer Screen) [facility] End: 12-09-2022 Cult, Beta Strep [facility] Work Phone: Immunizations Immunization Date Immunization Notes Care Provider Fa cility 06-26-2021 COVID-Pfizer (30 MCG /0.3 ML) Ildefonso Wynn MD Work Phone: [email or web address]; [employer] 05-28-2020 Counseled parent on risks/benefits of vaccines (66271) Ildefonso Wynn MD Work Phone: [email or web address]; [employer] 05-30-2019 Meningococcal, MCV4, unspecified conjugate formulation(groups A, C, Y and W-135) Ildefonso Wynn MD Work Phone: [email or web address]; [email or web address] 05-30-2019 Counseled parent on risks/benefits of vaccines (22764) Ildefonso Wynn MD Work Phone: [email or web address]; [email or web address] 05-30-2019 meningococcal polysaccharide (groups A, C, Y and W-135) diphtheria toxoid conjugate vaccine (MCV4P) Ildefonso Wynn MD Work Phone: [email or web address]; [email or web address] Payers Date Payer Category Payer Unknown [employer] [id number] 2018-Present [address] [place] [address] [id number] 2018 Unknown [id number] 2001 Unknown [id number] Unknown [id number] Social History Date Type Detail Facility Start: 12-16-[address] [facility] Never smoked tobacco [facility] Start: 12-16-2020 Tobacco use and exposure Smokeless tobacco non-user [facility] Start: 2001 Sex Assigned At Not on file [facility] Start: 02-01-2022 End: 07-20-2022 Exposure to SARS-CoV-2 (event) Not sure [facility] Parents Parents [email or web address]; [email or web address] Tobacco Use: Tobacco Use: ; N ever smoker. [email or web address]; [employer] Tobacco/Smoke Exposure: Tobacco/Smoke Exposure: ; None. [email or web address]; [email or web address] Female [email or web address]; [email or web address] Work Phone: None [facility] [employer] [facility] [employer] 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 Mother Status:Active Comments:In good health. Father Status:Active Comments:In good health. Mother Status:Active Comments:In good health. Father Status:Active Comments:In good health. Mother Status:Active Comments:In good health. Father Status:Active Comments:In good health. Mother Status:Active Comments:In good health. Additional Source Comments Care Teams (unrecognized sec tion and content) Photographic Laboratory Technician Relationship Specialty Start Date End Date AdamsElenaana, PEDIATRIC UROLOGIST [address] [place] [id number] PCP - General Nurse Practitioner 01/09/21 Dread Corona MD [address] [place] [id number] Sports Medicine 01/19/21 Photographic Laboratory Technician Relationship Specialty Start Date End Date AdamsDomingo delacruz, PEDIATRIC UROLOGIST [address] [place] [id number] PCP - General Nurse Practitioner 01/09/21 Dread Corona MD [address] [place] [address] Sports Medicine 01/19/21 INFORMATION SOURCE (unrecogn ized section and content) DATE CREATED AUTHOR AUTHOR'S ORGANIZ ATION 11/07/2023 [facility] DATE CREATED AUTHOR AUTHOR'S ORGANIZ ATION 12/12/2023 [facility] FOR RECORDS PERTAINING TO PATIENTS WHO ARE OR HAVE BEEN ENROLLED IN A CHEMICAL DEPENDENCY/SUBSTANCEABUSE PROGRAM, SOME INFORMATION MAY BE OMITTED. This clinical summary was aggregated from multiple sources. Caution should be exercised in using it in the provision of clinical care. This summary normalizes information from multiple sources, and as a consequence, information in this document may materially change the coding, format and clinical context of patient data. In addition, data may be omitted in some cases. CLINICAL DECISIONS SHOULD BE BASED ON THE PRIMARY CLINICAL RECORDS. [facility] [employer] [facility]. provides no warranty or guarantee of the accuracy or completeness of information in this document.
[2023-12-15 15:28] LABS: Absolute Lymphocyte Count 1.88 X10^3/uL (0.83-4.51); Absolute Neutrophil Count 2.6 X10^3/uL (2.0-7.7); Basophil# 0.03 X10^3/uL; Basophil% 0.6 % (0-1); Eosinophil# 0.29 X10^3/uL; Eosinophils% 5.6 % (0-5); Hematocrit 40.9 % (37-47); Hemoglobin 13.2 g/dL (12.0-15.0); Lymphocyte # 1.88 X10^3/ul (0.83-4.51); Lymphocyte % 36.1 % (19-41); Mean Corp Hgb Conc 32.3 g/dL (32-36); Mean Corpuscular Hgb 27.2 pg (27.0-32.0); Mean Corpuscular Volume 84.3 fL (81-99); Mean Platelet Vol. 10.5 fl (6.2-12.0); Monocyte# 0.36 X10^3/uL; Monocyte% 6.9 % (0-10); NRBC Flagged by Analyzer 0 % (0-5); Neutrophil # 2.64 X10^3/uL (2.7-7.7); Neutrophil % 50.6 % (47-70); Platelet Count 206 K/mm3 (150-450); RBC Distribution Width CV 12.4 % (11.6-14.6); RBC Distribution Width SD 37.4 fl (35.1-43.9); Red Blood Count 4.85 M/mm3 (4.2-5.4); White Blood Count 5.2 K/mm3 (4.4-11.0)
[2023-12-15 16:51] LABS: ALB/GLOB Ratio 1.2 RATIO (0.9-2.4); AST(SGOT) 13 U/L (15-37); Alanine Aminotransfer ALT/SGPT 23 U/L (13-56); Albumin, Serum 4.2 g/dL (3.2-5.0); Alkaline Phosphatase 84 U/L (45-117); Anion Gap 6 (5-15); BUN 11 mg/dL (7-18); BUN/Creat Ratio 11.2 RATIO (10-20); Calcium,Total 9.5 mg/dL (8.5-10.1); Chloride 107 mmol/L (98-107); Creatinine, Serum 0.98 mg/dL (0.55-1.02); EST Glomerular Filtration Rate 75 mL/min (>60); Est Glom Filt Rate - Afr Amer 91 mL/min (>60); Globulin 3.5 g/dL (2.2-4.2); Glucose 86 mg/dL (74-106); Protein, Total 7.7 g/dL (6.4-8.2); Sodium Level 137 mmol/L (136-145); Thyroid Stim Hormone (TSH) 1.53 uIU/mL (0.358-3.74)
== END | disposition home or self-care (01) ==
PROVIDERS: PCP Family Medicine; Referring Provider Physician Assistant; Visit Provider Physician Assistant
DX: R06.02 Shortness of breath (principal); R59.0 Localized enlarged lymph nodes
CPT/HCPCS: 36415; 71046; 80053; 84443; 85025

== ENCOUNTER → 2023-12-19 | Outpatient (CLI) | payer OTHER, SELFPAY ==
--- OUTSIDE RECORDS SUMMARY | 2023-12-19 07:00 | XMS RPT_ITS | CCD ---
Author Name Unknown Address [address] [place] [address] Organization [facility] Care Team Providers Care Stitcher Operator Name Role Phone Adams [employer] SALES REPRESENTATIVE, Bindyaben Primary Care Provider Dread Corona MD Unavailable ADAMS, BINDYABEN Primary Care Unavailable BARRIOS, RODOLFO~[id number] BARRIOS Attending Un available BARRIOS, RODOLFO~[id number] BARRIOS Referring Un available ADAMS, BINDYABEN Primary Care Unavailable DREAD CORONA Attending Unavailable ADAMS, BINDYABEN Primary Care Unavailable SEAGRAVES BERTHA, BERTHA~[id number] SEAGRAVES Attending Unavailable SEAGRAVES BERTHA, BERTHA~[id number] SEAGRAVES Referring Unavailable ADAMS, BINDYABEN Attending Unavailable ADAMS, BINDYABEN Primary Care Unavailable ORDER, TRANSCRIBE Attending Unavailable ORDER, TRANSCRIBE Referring Unavailable ADAMS, BINDYABEN Primary Care Unavailable ADAMS, BINDYABEN Attending Unavailable ADAMS, BINDYABEN Referring Unavailable ADAMS, BINDYABEN Primary Care Unavailable BARRIOS, RODOLFO~[id number] BARRIOS Attending Un available BARRIOS, RODOLFO~[id number] BARRIOS Referring Un available ADAMS, BINDYABEN Primary Care Unavailable SEAGRAVES BERTHA, BERTHA~[id number] SEAGRAVES Attending Unavailable SEAGRAVES BERTHA, BERTHA~[id number] SEAGRAVES Referring Unavailable ADAMS, BINDYABEN Primary Care Unavailable HERRERA, XOCHILT P Attending Unavailable ADAMS, BINDYABEN Primary Care Unavailable HERRERA, XOCHILT P Attending Unavailable HERRERA, XOCHILT P Referring Unavailable ADAMS, BINDYABEN Primary Care Unavailable ORDER, TRANSCRIBE Attending Unavailable ADAMS, BINDYABEN Primary Care Unavailable Jennifer MONTENEGRO, Ildefonso Baltazar Unavailable Physical Therapy, Israel Cardenas Unavailable Mehnaz COUNTERINTELLIGENCE/HUMINT SPECIALIST, Tonya Unavailable Fernando WRIGHT, Demetra Santos Unavailable Steven MONTENEGRO, Gustavo Nava Unavailable Thea WRIGHT, Denia Egan Unavailable Pura Wyatt MA Unavailable Unavailable Steve COUNTERINTELLIGENCE/HUMINT SPECIALIST, Esperanza Unavailable Unavailable King YELITZA-C, Jhonatan Mace Unavailable [phone] Shira CARRILLO, Denia Baltazar Unavailable Unavaila luis Kate COUNTERINTELLIGENCE/HUMINT SPECIALIST, Coty Unavailable Unavailable Aleyda CARRILLO, Ruth Y Unavailable Unavailable Valentino WRIGHT, Martin Santos Unavailable Raghu (Sukumar), Zac Unavailable Unavailab le Richert COUNTERINTELLIGENCE/HUMINT SPECIALIST, Brooklynn Roach Unavailable Unavailab le Evy COUNTERINTELLIGENCE/HUMINT SPECIALIST, Elizabeth Cassandra Unavailable Unavailab le Sophia COUNTERINTELLIGENCE/HUMINT SPECIALIST, Ciera Streeter Unavailable Unavailab le Uptain CNM, Crystal K Unavailable [phone] Vess COUNTERINTELLIGENCE/HUMINT SPECIALIST, Divya L Unavailable Unavailable Wengerd COUNTERINTELLIGENCE/HUMINT SPECIALIST, Aurora Unavailable Unavailabl e Zaugg COUNTERINTELLIGENCE/HUMINT SPECIALIST, Laila Unavailable Unavailable Unavailable Unavailable ILDEFONSO WYNN Consulting Unavailable MARTIN AVELAR Admitting Unavailable MARTIN AVELAR Primary Care Unavailable MARTIN AVELAR Attending Unavailable PROVIDER, UNKNOWN Consulting Unavailable PROVIDER, UNKNOWN Consulting Unavailable PROVIDER, UNKNOWN Consulting Unavailable Urologist Provider Unavailable Unavailable Medications Current Medications Medication Drug Class(es) Dates Sig (Normalized) Sig (Original) [id number] 200 actuat albuterol 0.09 mg/actuat metered dose inhaler (13 sources) beta2-Adrenergic Agonist Start: 10-07-2023 take 2 puff(s) by inhalation every four to six hours as needed Ventolin HFA 90 mcg/actuation aerosol inhaler ; 2 (two) puff(s) every 4-6hrs prn for 0 days Quantity: 1 {Each} Refills: 1 Ordered: 07-Oct-2023 ALFREDO Wyatt Start: 07-Oct-2023 Completed/Discontinued Medications Medication Drug Class(es) Dates Sig (Normalized) Sig (Original) amoxicillin 875 mg / clavulanate 125 mg oral tablet (11 sources) Penicillin-class Antibacterial Start: 04-06-2018 End: 11-28-2023 [...] tonsillitis, unspecified] Onset: 12-09-2022 Episodic Acute bronchitis (10 sources) Acute bronchitis; Translations: [Acute bronchitis, unspecified] 05-28-2020 Episodic Anxiety disorders (20 sources) Generalized anxiety disorder; Translations: [Generalized anxiety disorder] 11-18-2023 Chronic Asthma (15 sources) Exercise-induced asthma; Translations: [Exercise induced bronchospasm] 11-18-2023 Chronic Conditions associated with dizziness or vertigo (5 sources) Labyrinthitis, unspecified 03-24-2011 Episodic Genitourinary symptoms and ill-defined conditions (20 sources) Urinary symptoms ; Translations: [Unspecified symptoms and signs involving the genitourinary system] 11-18-2023 Episodic Immunizations and screening for infectious disease (6 sources) Contact with and (suspected) exposure to other viral communicable diseases; Translations: [Need for prophylactic vaccination and inoculation against influenza] Onset: 12-23-2021 09-15-2012 Episodic Inflammation; infection of eye (except that caused by tuberculosis or sexually transmitteddisease) (5 sources) Conjunctivitis; Translations: [Other mucopurulent conjunctivitis, left eye] 10-07-2016 Episodic Influenza (10 sources) Influenza; Translations: [Influenza due to unidentified influenza virus with other respiratory manifestations] 05-28-2020 Episodic Lymphadenitis (6 sources) Cervical lymphadenopathy; Translations: [Localized enlarged lymph nodes] Onset: 07-20-2022 Episodic Malaise and fatigue (5 sources) Fatigue; Translations: [Other fatigue] 05-15-2014 Episodic Menstrual disorders (10 sources) Irregular periods; Translations: [Irregular menstruation, unspecified] 05-28-2020 Chronic Nonmalignant breast conditions (5 sources) Breast lump; Translations: [Unspecified lump in unspecified breast] 10-27-2012 Episodic Other aftercare (20 sources) Patient encounter status; Translations: [Other intermodal customer service (current) drug therapy] Episodic Other infections; including parasitic (5 sources) H/O: chickenpox; Translations: [Personal history of other infectious and parasitic diseases] 05-28-2020 Episodic Other lower respiratory disease (12 sources) Dyspnea on exertion; Translations: [Shortness of breath] 11-18-2023 Episodic Other lower respiratory disease (5 sources) Cough; Translations: [Cough] 01-17-2017 Episodic Other skin disorders (11 sources) Acne vulgaris; Translations: [Acne vulgaris] Episodic Other upper respiratory disease (5 sources) Allergic disposition; Translations: [Other allergic rhinitis] 10-07-2016 Chronic Other upper respiratory disease (5 sources) Seasonal allergic rhinitis; Translations: [Other seasonal allergic rhinitis] 09-24-2015 Chronic Other upper respiratory infections (10 sources) Sinusitis; Translations: [Chronic sinusitis, unspecified] 12-27-2017 Chronic Other upper respiratory infections (20 sources) Sore throat symptom; Translations: [Acute pharyngitis, unspecified] Onset: 08-11-2022 Episodic Otitis media and related conditions (10 sources) Otitis media of bilateral ears; Translations: [Otitis media, unspecified, bilateral] 11-18-2023 Episodic Residual codes; unclassified (15 sources) Finding of body mass index; Translations: [Body mass index (BMI) pediatric, 5th percentile to less than 85th percentile for age] 05-28-2020 Episodic Residual codes; unclassified (10 sources) Body mass index 20-24 - normal; Translations: [Body mass index (BMI) 22.0-22.9, adult] 05-28-2020 Episodic Residual codes; unclassified (10 sources) Up-to-date with immunizations; Translations: [Personal history of other drug therapy] 11-18-2023 Episodic Residual codes; unclassified (10 sources) Influenza vaccination declined; Translations: [Immunization not carried out because of patient refusal] 05-28-2020 Episodic Residual codes; unclassified (10 sources) Non-smoker; Translations: [Other specified health status] 05-28-2020 Episodic Skin and subcutaneous tissue infections (5 sources) Impetigo; Translations: [Impetigo, unspecified] 12-13-2016 Episodic Sprains and strains (5 sources) Strain of knee; Translations: [Strain of unspecified muscle(s) and tendon(s) at lower leg level, left leg, initial encounter] 06-02-2016 Episodic Unclassified (5 sources) control (initial visit) - The patient's [...] want pill again.Patient will be moving to [place] in February. States she is unsure which form of contraception she is wanting at this time.She is not currently on a form of contraception. She reports normal cycles. She is not currently sexually active. 12-23-2022 Unclassified (5 sources) Vertigo - The onset of the [...] states she is light sensitive. 09-24-2015 Unclassified (2 sources) asthma - Pt feels short of breath [...] but none today. 12-15-2023 Urinary tract infections (4 sources) Recurrent urinary tract infection; Translations: [Urinary tract infection, site not specified] 12-14-2023 Episodic Past or Other Problems Problem Classification Problem Date Documented Date Episodic/Chronic Other aftercare (1 source) Other correction (current) drug therapy; Translations: [Other correction (current) drug therapy] Onset: 05-26-2022 Episodic Other skin disorders (1 source) Acne vulgaris; Translations: [Acne vulgaris] Onset: 05-26-2022 Episodic Unclassified (5 sources) UTI - Symptoms include urinary urgency. Note for UTI : Pt was treated for pyelonephritis and is still having urgency, pt denies any pain. No fever or back pain. Has nexplanon so has menstrual irregularity from that. Negative test. Feels a pressure and has less of it after urination.Denies constipation. 11-18-2023 Unclassified (5 sources) UTI - Symptoms include dysuria, urinary [...] shortness of breath at times. 10-07-2023 Unclassified (5 sources) control (initial visit) - The patient's [...] chance of at this time 02-21-2023 Unclassified (5 sources) Follow up for multiple chronic conditions [...] her anxiety at this time. 05-28-2020 Unclassified (5 sources) Breathing trouble - The onset of the breathing trouble has been gradual and has been occurring in a persistent pattern for 6 weeks. The breathing trouble is mild to moderate. It is described as tightness. The breathing trouble occurs on exertion. Note for Breathing trouble : -Peak flow 300:370:280 01-30-2020 Unclassified (5 sources) Cold Symptoms - Symptoms include nasal [...] includes non-prescription cold medication and antibiotics (augmentin 155-218 from [place] 10 days ago. Pt. still has 5 pills left.). Risk factors do not include smoking. The patient has not been exposed to an individual with similar symptoms. Medical history includes recurrent sinusitis, but patient denies history of asthma or tonsillectomy. 08-01-2019 Unclassified (5 sources) Well child visit #4 - 14 [...] and participates in extracurricular activities. 05-30-2019 Unclassified (5 sources) Well child visit #4 - 14 [...] belts and home smoke detectors. 06-08-2018 Unclassified (5 sources) Cold Symptoms - Symptoms include nasal [...] tonsillectomy or recurrent ear infections. 04-06-2018 Unclassified (5 sources) Cold Symptoms - Symptoms include nasal [...] history of asthma or tonsillectomy. 01-10-2018 Unclassified (5 sources) Acne - The onset of the acne has been gradual and has been occurring for years. Note for Acne : -Went to [facility] and tried some therapies. They think it is hormone related and suggested eval with PCP for OCP. She is using a special soap from their boutique. Her menses are irregular. 12-27-2017 Unclassified (5 sources) Well child visit #4 - 14 [...] past year. Reviewed by ALEX. 06-09-2017 Unclassified (5 sources) Cold Symptoms - Symptoms include nasal [...] Medical history includes seasonal allergies. 01-12-2017 Unclassified (5 sources) Cold Symptoms - Symptoms include nasal [...] 6 days. Note for Knee pain : -[place] knee cap pop to the side while [...] and participates in extracurricular activities. 06-02-2016 Unclassified (5 sources) Well child visit #4 - 14 [...] years : reviewed by B 06-18-2015 Unclassified (5 sources) Well child visit #3 - 5 [...] 13 years : -Sports physical. 05-15-2014 Unclassified (5 sources) Cold Symptoms - Symptoms include nasal [...] infection : reviewed by [facility] 01-16-2013 Unclassified (5 sources) Breast pain - The breast pain [...] had to be surgically removed. 10-27-2012 Unclassified (5 sources) Dizziness - The onset of the [...] dizziness is exacerbated by walking. 03-24-2011 Unclassified (3 sources) Concern - Patient also has a [...] shortness of breath at times. 10-07-2023 Unclassified (3 sources) [ADDITIONAL REASON] UTI - Symptoms include [...] denies any new sexual contacts. 10-07-2023 Unclassified (3 sources) Anxiety - The onset of the [...] her anxiety at this time. 05-28-2020 Unclassified (3 sources) [ADDITIONAL REASON] Well adult female - The patient feels well with no complaints. The patient has a balanced diet. The patient exercises daily. The patient sleeps 8 hours per night. Note for Well adult female : Reviewed by Demetra King PA-C. 05-28-2020 Unclassified (2 sources) Well child visit #4 - 14 [...] and participates in extracurricular activities. 06-02-2016 Unclassified (2 sources) [ADDITIONAL REASON] Knee pain - The onset of the knee pain has been sudden following an incident not at work and has been occurring for 6 days. Note for Knee pain : -[place] knee cap pop to the side while playing softball. She reduced it and has minimal pain but has some swelling. She is asking aobut strengthening exercises. She is wearing a brace. 06-02-2016 Results Test Name Value Interpretation Reference Range Facil ity Vital Signs Date Time Vital Sign Value Performing Clinician Faci lity 12-15-2023 08:51-0500 Body height 167.64 cm Elizabeth Ratliff LPN [facility], [facility].; Hamilton Thorne, [employer]. 12-15-2023 08:51-0500 Body mass index (BMI) [Ratio] 22.92 kg/m2 [facility] [facility], [facility].; Hamilton Thorne, [employer]. 12-15-2023 08:51-0500 Body surface area Derived from formula 1.73 m2 Elizabeth Ratliff LPN [facility] [facility], [facility].; Hamilton Thorne, [employer] 12-15-2023 08:51-0500 Body temperature 98.7 [degF] Elizabeth Ratliff LPN [employer] [facility], [facility].; Hamilton Thorne, [employer]. Encounters Encounter Date Encounter Type Care Provider Facility Start: 12-15-2023 End: 12-15-2023 Office outpatient visit 15 minutes Ildefonso Wynn MD Work Phone[facility] [facility] Start: 12-14-2023 End: 12-14-2023 Orders Ildefonso Wynn MD Work Phone: [place] [employer] [facility] Start: 12-12-2023 ambulatory ILDEFONSO WYNN [facility] Start: 12-12-2023 End: 12-12-2023 Orders Ildefonso Wynn MD [facility] [facility] Start: 11-18-2023 End: 11-18-2023 Office outpatient visit 15 minutes Ildefonso Wynn MD [facility] [employer] [facility] Start: 11-04-2023 End: 11-04-2023 Office outpatient visit 15 minutes Ildefonso Wynn MD Work Phone: [facility] [employer] [facility] Start: 10-07-2023 End: 10-07-2023 Office outpatient visit 25 minutes Ildefonso Wynn MD [facility] [employer] [facility] Start: 02-21-2023 End: 02-21-2023 Procedure Ildefonso Wynn MD [facility] [employer] [facility] Start: 12-23-2022 End: 12-23-2022 Office outpatient visit 15 minutes Ildefonso Wynn MD Work [facility] [employer] [facility] Start: 12-09-2022 End: 12-10-2022 ambulatory BERTHA~[id number] JA STONE [facility] Start: 12-09-2022 End: 12-09-2022 Subsequent hospital visit by physician Bertha Michael APRN Work Phone: [facility] Ur[facility] Care Lab Procedures Date Procedure Procedure [...] DTAP/TDAP/TD VACCINE (3 - Td or Tdap) [facility] Start: 12-15-2023 Brncdilat rspse spmtry pre&post-brncdilat admn PFT Protocol (39330) -- not in office Start: 15-Dec-2023 Intent [employer] Start: 12-15-2023 Chest x-ray CHEST X-RAY, PA AND LATERAL ([id number]) Start: 15-Dec-2023 Intent [employer] [place] Thorne, [employer]. Start: 12-15-2023 Assay of thyroid stimulating hormone tsh TSH W/ REFL FREE T4 (82677,97498) (42907) Start: 15-Dec-2023 9:15 Request [employer] Start: 12-15-2023 Comprehensive metabolic panel CMP w/ GFR* ([id number]) Start: 15-Dec-2023 9:15 Request [employer] [place] Thorne, [employer]. Start: 12-15-2023 Blood count complete auto&auto difrntl wbc CBC, PLATELETS & AUT DIFF (F) (00752) Start: 15-Dec-2023 9:15 Request [employer].; [place] Thorne, [employer]. Start: 12-12-2023 Urnls dip stick/tablet reagent auto microscopy URINALYSIS, W/ REFLEX TO CULTURE ([id number]) Start: 12-Dec-2023 Request [employer]. Start: 11-18-2023 Iadna chlamydia trachomatis amplified probe tq CHLAMYDIA TRACHOMATIS RNA,TMA-URINE ([id number]) Start: 18-Nov-2023 16:13 Request [employer]. Start: 11-18-2023 Iadna neisseria gonorrhoeae amplified probe tq NEISSERIA GONORRHOEAE RNA,TMA- URINE ([id number]) Start: 18-Nov-2023 16:13 Request [employer].; [employer]. Start: 11-18-2023 Culture bacterial quanttative colony count urine Urine Culture ([id number]) Start: 18-Nov-2023 13:12 Request [employer].; [employer]. Start: 07-22-2022 Influenza vaccination [facility] Start: 03-13-2022 COVID-19 Vaccine (3 - Booster for Pfizer series) COVID-19 Vaccine (3 - Booster for Pfizer series) [facility] Start: 07-22-2021 Influenza vaccination INFLUENZA VACCINE [facility] Start: 2004 ANNUAL WELLNESS EXAM ANNUAL WELLNESS EXAM [facility] Start: 2001 Screening for Chlamydia trachomatis CHLAMYDIA SCREEN [facility] Start: 2001 Screening for malignant neoplasm of cervix PAP SMEAR EVERY 3 YR (Cervical Cancer Screen) [facility] End: 12-09-2022 Cult, Beta Strep [facility] Work Phone: Immunizations Immunization Date Immunization Notes Care Provider Fa cility 06-26-2021 COVID-Pfizer (30 MCG /0.3 ML) Ildefonso Wynn MD Work Phone: [employer]; [employer]. 05-28-2020 Counseled parent on risks/benefits of vaccines (84275) Ildefonso Wynn MD Work Phone: [employer]; [employer]. 05-30-2019 Meningococcal, MCV4, unspecified conjugate formulation(groups A, C, Y and W-135) Ildefonso Wynn MD Work Phone: [employer]; [employer] 05-30-2019 Counseled parent on risks/benefits of vaccines (09692) Ildefonso Wynn MD Work Phone: [employer]; [employer] 05-30-2019 meningococcal polysaccharide (groups A, C, Y and W-135) diphtheria toxoid conjugate vaccine (MCV4P) Ildefonso Wynn MD Work Phone: [employer]; [employer] Payers Date Payer Category Payer Unknown [employer] [id number] 2018-Present [address] [place] [address] [id number] 2018 Unknown [id number] 2001 Unknown [id number] Unknown [id number] Social History Date Type Detail Facility Start: 12-16-[address] [facility] Never smoked tobacco [facility] Start: 12-16-2020 Tobacco use and exposure Smokeless tobacco non-user [facility] Start: 2001 Sex Assigned At Not on file [facility] Start: 02-01-2022 End: 07-20-2022 Exposure to SARS-CoV-2 (event) Not sure [facility] Parents Parents [employer]; [employer] Tobacco Use: Tobacco Use: ; N ever smoker. [employer]; [employer] Tobacco/Smoke Exposure: Tobacco/Smoke Exposure: ; None. [employer] Female [employer] Work Phone: None [facility] Work Phone: Evaluation note Note Date & Type Note Facility documented in this encounter [facility] Evaluation note Note Date & Type Note Facility documented in this encounter [facility] Evaluation note Note Date & Type Note Facility documented in this encounter [facility] Advance Directives Documents on File Type Date Recorded Patient Floor Winder Expl anation Advance Directives and Living Will Power of Measurement Psychologist Summary Purpose Family History Father Status:Active Comments:In [...] Care Teams (unrecognized sec tion and content) Stitcher Operator Relationship Specialty Start Date End Date Domingo Adams, [employer] SALES REPRESENTATIVE [address] [place] [id number] PCP - General Nurse Practitioner 01/09/21 Dread Corona MD [address] [place] [id number] Sports Medicine 01/19/21 Stitcher Operator Relationship Specialty Start Date End Date Domingo Adams, PR[employer]ING [employer] SALES REPRESENTATIVE [address] [place] [id number] PCP - General Nurse Practitioner 01/09/21 Dread Corona MD [address] [place] [address] Sports Medicine 01/19/21 INFORMATION SOURCE (unrecogn ized section and content) DATE CREATED AUTHOR AUTHOR'S ORGANIZ ATION 11/07/2023 [facility] DATE CREATED AUTHOR AUTHOR'S ORGANIZ ATION 12/12/2023 [facility] FOR RECORDS PERTAINING TO PATIENTS WHO [...] BE BASED ON THE PRIMARY CLINICAL RECORDS. [facility] [employer] [facility]. provides no warranty or guarantee of the accuracy or completeness of information in this document.
--- NOTE | 2023-12-20 05:54 | PFTCOMP_ITS ---
COMPLETE PULMONARY FUNCTION TEST INTERPRETATION Brief HPI: Patient is a 23-year-old female, currently under the care of Rae Avelar, who presents to [facility] for complete pulmonary function tests secondary to diagnosis of dyspnea. Respiratory therapist reports good effort and reproducible results. Interpretation: Forced expiration spirometry shows no large airways obstructive ventilatory defect with an FEV1 of 119% predicted. There is no significant bronchodilator response by strict ATS criteria. Spirograms are of fair quality and show exhalation for only about 5 seconds, likely underestimating FVC. The respiratory flow volume loop shows a normal pattern. Lung volumes by body plethysmography show an elevated total lung capacity at 6.92 L, 131% predicted. All other lung volumes are increased proportionally. Diffusion capacity by carbon monoxide is normal at 105% predicted. The airway resistance is normal. No previous pulmonary function tests were available for review. Impression: Grossly normal pulmonary function test. Can consider bronchoprovocation study if asthma is suspected
== END | disposition home or self-care (01) ==
LOC: PSN 06:57
PROVIDERS: PCP Family Medicine; Referring Provider Physician Assistant; Visit Provider Physician Assistant
DX: R06.02 Shortness of breath (principal)
CPT/HCPCS: 94060; 94726; 94729

== ENCOUNTER → 2023-12-30 | Outpatient (CLI) | payer OTHER, SELFPAY ==
--- NOTE | 2023-12-30 17:46 | CT_ITS ---
STUDY: CT ABDOMEN AND PELVIS WITHOUT CONTRAST REASON FOR EXAM: Female, 23 years old. Kidney stone RADIATION DOSAGE (If Supplied By Facility): CTDIvol = ( 6.25 ) mGy, DLP = ( 281.22 ) mGycm TECHNIQUE: Transaxial images were obtained from the dome of the diaphragm to the symphysis pubis without oral contrast, and without intravenous contrast. Sagittal and coronal images were reconstructed. Individualized dose optimization techniques were used for this CT. COMPARISON: None. FINDINGS: The visualized lung bases are unremarkable. The visualized portions of the heart are within normal limits. Normal liver. Normal gallbladder and extrahepatic biliary system. Normal spleen. Normal pancreas. Normal bilateral adrenal glands. Normal right kidney. Normal left kidney. Normal visualized stomach. Normal small intestine. Normal colon. The appendix is visualized and appears normal. Normal abdominal aorta. Normal inferior vena cava. Normal retroperitoneum. Normal urinary bladder. Normal visualized uterus. There is a left-sided ovarian cyst measuring 3.1 x 3.2 cm. Normal abdominal wall. Normal osseous structures. CT/Abdomen/Pelvis without Cont IMPRESSION: Normal bilateral kidneys with no intrarenal stone or hydronephrosis. Normal abdominal viscera. No acute appendicitis or bowel obstruction. Left-sided ovarian cyst measuring 3.2 cm, remainder of the pelvic structures unremarkable. Electronically Signed: Sahara Levy MD at 2:46 EST ,
--- OUTSIDE RECORDS SUMMARY | 2023-12-30 18:05 | XMS RPT_ITS | CCD ---
Author Name Unknown Address [address] [place] [address] Organization [facility] Care Team Providers Care Intake Worker Name Role Phone Adams CLUB STEWARD, Bindyaben Primary Care Provider Dread Corona MD Unavailable ADAMS, BINDYABEN Primary Care Unavailable BARRIOS, RODOLFO~[id number] BARRIOS Attending Un available BARRIOS, RODOLFO~[id number] BARRIOS Referring Un available ADAMS, BINDYABEN Primary Care Unavailable DREAD CORONA Attending Unavailable ADAMS, BINDYABEN Primary Care Unavailable SEAGRAVES BERTHA, BERTHA~[id number] SEAGRAVES Attending Unavailable SEAGRAVES BERTHA, BERTHA~[id number] SEAGRAVES Referring Unavailable ADAMS, BINDYABEN Attending Unavailable ADAMS, BINDYABEN Primary Care Unavailable ORDER, TRANSCRIBE Attending Unavailable ORDER, TRANSCRIBE Referring Unavailable ADAMS, BINDYABEN Primary Care Unavailable ADAMS, BINDYABEN Attending Unavailable ADAMS, BINDYABEN Referring Unavailable ADAMS, BINDYABEN Primary Care Unavailable BARRIOS, RODOLFO~[id number] BARRIOS Attending Un available BARRIOS, RODOLFO~[id number] BARRIOS Referring Un available ADAMS, BINDYABEN Primary Care Unavailable SEAGRAVES BERTHA, BERTHA~[id number] SEAGRAVES Attending Unavailable SEAGRAVES BERTHA, BERTHA~[id number] SEAGRAVES Referring Unavailable ADAMS, BINDYABEN Primary Care Unavailable HERRERA, XOCHILT P Attending Unavailable ADAMS, BINDYABEN Primary Care Unavailable HERRERA, XOCHILT P Attending Unavailable HERRERA, XOCHILT P Referring Unavailable ADAMS, BINDYABEN Primary Care Unavailable ORDER, TRANSCRIBE Attending Unavailable ADAMS, BINDYABEN Primary Care Unavailable Jennifer MONTENEGRO, Ildefonso Baltazar Unavailable Physical Therapy, Israel Cardenas Unavailable Mehnaz POLISHER AND SANDER, Tonya Unavailable Fernando WRIGHT, Demetra Santos Unavailable [phone] Steven MONTENEGRO, Gustavo Nava Unavailable Thea WRIGHT, Denia Egan Unavailable Edmundo FUENTES, Pura Unavailable Unavailable Steve POLISHER AND SANDER, Esperanza Unavailable Unavailable King DARRELLC, Jhonatan Mace Unavailable Shira CARRILLO, Denia Baltazar Unavailable Unavaila luis Martdavid POLISHER AND SANDER, Coty Unavailable Unavailable Aleyda CARRILLO, Ruth Y Unavailable Unavailable Valentino WRIGHT, Martin Santos Unavailable Raghu (Sukumar), Zac Unavailable Unavailab le Richert POLISHER AND SANDER, Brooklynn Roach Unavailable Unavailab le Evy POLISHER AND SANDER, Elizabeth Cassandra Unavailable Unavailab le Sophia POLISHER AND SANDER, Ciera Streeter Unavailable Unavailab le Uptain CNM, Crystal K Unavailable Vess POLISHER AND SANDER, Neamadore L Unavailable Unavailable Wengerd POLISHER AND SANDER, Aurora Unavailable Unavailabl e Zaugg POLISHER AND SANDER, Laila Unavailable Unavailable Unavailable Unavailable ILDEFONSO WYNN Consulting Unavailable MARTIN AVELAR Admitting Unavailable MARTIN AVELAR Primary Care Unavailable MARTIN AVELAR Attending Unavailable PROVIDER, UNKNOWN Consulting Unavailable PROVIDER, UNKNOWN Consulting Unavailable PROVIDER, UNKNOWN Consulting Unavailable Urologist Provider Unavailable Unavailable Claribel CARRILLO, Amber Roach Unavailable Unavail able Medications Current Medications Medication Drug Class(es) Dates Sig (Normalized) Sig (Original) [id number] 200 actuat albuterol 0.09 mg/actuat metered dose inhaler (20 sources) beta2-Adrenergic Agonist Start: 10-07-2023 take 2 puff(s) by inhalation every four to six hours as needed Ventolin HFA 90 mcg/actuation aerosol inhaler ; 2 (two) puff(s) every 4-6hrs prn for 0 days Quantity: 1 {Each} Refills: 1 Ordered: 07-Oct-2023 ALFREDO Wyatt Start: 07-Oct-2023 Completed/Discontinued Medications Medication Drug Class(es) Dates Sig (Normalized) Sig (Original) azithromycin 250 mg oral tablet (9 sources) Macrolide Antimicrobial Start: 08-01-2019 End: 01-02-2020 Zithromax Z-Frank 250 MG Oral Tablet ; 2 (two) Tabs day one, then one daily for 4 days for 0 days Quantity: 1 {Package} Refills: 0 Ordered: 02-Jan-2020 MILTON Cortes Ciera Streeter Start: 01-Aug-2019 End: 02-Jan-2020 Status: Inactive cephalexin 500 mg oral capsule (18 sources) Cephalosporin Antibacterial Start: 12-26-2017 End: 04-06-2018 take 1 capsule by mouth three times daily Cephalexin 500 MG Oral Capsule ; 1 (one) Capsule Capsule tid for 0 days Quantity: 30 {Capsule} Refills: 0 Ordered: 06-Apr-2018 LORENA Maynard Start: 26-Dec-2017 End: 06-Apr-2018 Status: Inactive Problems Active Problems Problem Classification Problem Date Documented Date Episodic/Chronic Acute and chronic tonsillitis (1 source) Acute tonsillitis, unspecified; Translations: [Acute tonsillitis, unspecified] Onset: 12-09-2022 Episodic Acute bronchitis (18 sources) Acute bronchitis; Translations: [Acute bronchitis, unspecified] 05-28-2020 Episodic Anxiety disorders (20 sources) Generalized anxiety disorder; Translations: [Generalized anxiety disorder] 11-18-2023 Chronic Asthma (20 sources) Exercise-induced asthma; Translations: [Exercise induced bronchospasm] 11-18-2023 Chronic Calculus of urinary tract (9 sources) Kidney stone; Translations: [Calculus of kidney] 12-21-2023 Episodic Conditions associated with dizziness or vertigo (9 sources) Labyrinthitis, unspecified 03-24-2011 Episodic Genitourinary symptoms and ill-defined conditions (20 sources) Urinary symptoms ; Translations: [Unspecified symptoms and signs involving the genitourinary system] 11-18-2023 Episodic Immunizations and screening for infectious disease (10 sources) Contact with and (suspected) exposure to other viral communicable diseases; Translations: [Need for prophylactic vaccination and inoculation against influenza] Onset: 12-23-2021 09-15-2012 Episodic Inflammation; infection of eye (except that caused by tuberculosis or sexually transmitteddisease) (9 sources) Conjunctivitis; Translations: [Other mucopurulent conjunctivitis, left eye] 10-07-2016 Episodic Influenza (18 sources) Influenza; Translations: [Influenza due to unidentified influenza virus with other respiratory manifestations] 05-28-2020 Episodic Lymphadenitis (14 sources) Cervical lymphadenopathy; Translations: [Localized enlarged lymph nodes] Onset: 07-20-2022 Episodic Malaise and fatigue (9 sources) Fatigue; Translations: [Other fatigue] 05-15-2014 Episodic Menstrual disorders (18 sources) Irregular periods; Translations: [Irregular menstruation, unspecified] 05-28-2020 Chronic Nonmalignant breast conditions (9 sources) Breast lump; Translations: [Unspecified lump in unspecified breast] 10-27-2012 Episodic Other aftercare (20 sources) Patient encounter status; Translations: [Other jail (current) drug therapy] Episodic Other infections; including parasitic (9 sources) H/O: chickenpox; Translations: [Personal history of other infectious and parasitic diseases] 05-28-2020 Episodic Other lower respiratory disease (15 sources) Dyspnea on exertion; Translations: [Shortness of breath] 11-18-2023 Episodic Other lower respiratory disease (9 sources) Cough; Translations: [Cough] 01-17-2017 Episodic Other lower respiratory disease (12 sources) Dyspnea; Translations: [Shortness of breath] 12-21-2023 Episodic Other skin disorders (19 sources) Acne vulgaris; Translations: [Acne vulgaris] Episodic Other upper respiratory disease (9 sources) Allergic disposition; Translations: [Other allergic rhinitis] 10-07-2016 Chronic Other upper respiratory disease (9 sources) Seasonal allergic rhinitis; Translations: [Other seasonal allergic rhinitis] 09-24-2015 Chronic Other upper respiratory infections (18 sources) Sinusitis; Translations: [Chronic sinusitis, unspecified] 12-27-2017 Chronic Other upper respiratory infections (20 sources) Sore throat symptom; Translations: [Acute pharyngitis, unspecified] Onset: 08-11-2022 Episodic Otitis media and related conditions (18 sources) Otitis media of bilateral ears; Translations: [Otitis media, unspecified, bilateral] 11-18-2023 Episodic Residual codes; unclassified (20 sources) Finding of body mass index; Translations: [Body mass index (BMI) pediatric, 5th percentile to less than 85th percentile for age] 05-28-2020 Episodic Residual codes; unclassified (18 sources) Body mass index 20-24 - normal; Translations: [Body mass index (BMI) 22.0-22.9, adult] 05-28-2020 Episodic Residual codes; unclassified (18 sources) Up-to-date with immunizations; Translations: [Personal history of other drug therapy] 11-18-2023 Episodic Residual codes; unclassified (18 sources) Influenza vaccination declined; Translations: [Immunization not carried out because of patient refusal] 05-28-2020 Episodic Residual codes; unclassified (18 sources) Non-smoker; Translations: [Other specified health status] 05-28-2020 Episodic Skin and subcutaneous tissue infections (9 sources) Impetigo; Translations: [Impetigo, unspecified] 12-13-2016 Episodic Sprains and strains (9 sources) Strain of knee; Translations: [Strain of unspecified muscle(s) and tendon(s) at lower leg level, left leg, initial encounter] 06-02-2016 Episodic Unclassified (9 sources) control (initial visit) - The patient's [...] want pill again.Patient will be moving to [place] in February. States she is unsure which form of contraception she is wanting at this time.She is not currently on a form of contraception. She reports normal cycles. She is not currently sexually active. 12-23-2022 Unclassified (9 sources) Vertigo - The onset of the [...] states she is light sensitive. 09-24-2015 Unclassified (6 sources) asthma - Pt feels short of [...] but none today. 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 Note for UTI : Pt was treated for pyelonephritis and is still having urgency, pt denies any pain. No fever or back pain. Has nexplanon so has menstrual irregularity from that. Negative test. Feels a pressure and has less of it after urination.Denies constipation. 11-18-2023 Unclassified (9 sources) UTI - Symptoms include dysuria, urinary [...] her symptoms at the time. 11-04-2023 Unclassified (6 sources) UTI - Symptoms include dysuria, urinary [...] denies any new sexual contacts. 10-07-2023 Unclassified (6 sources) [ADDITIONAL REASON] Concern - Patient also [...] shortness of breath at times. 10-07-2023 Unclassified (9 sources) control (initial visit) - The patient's [...] chance of at this time 02-21-2023 Unclassified (9 sources) Follow up for multiple chronic conditions [...] will be graduating in February. 06-29-2022 Unclassified (4 sources) Well adult female - The patient feels well with no complaints. The patient has a balanced diet. The patient exercises daily. The patient sleeps 8 hours per night. Note for Well adult female : Reviewed by Demetra King PA-C. 05-28-2020 Unclassified (4 sources) [ADDITIONAL REASON] Anxiety - The onset [...] her anxiety at this time. 05-28-2020 Unclassified (9 sources) Breathing trouble - The onset of the breathing trouble has been gradual and has been occurring in a persistent pattern for 6 weeks. The breathing trouble is mild to moderate. It is described as tightness. The breathing trouble occurs on exertion. Note for Breathing trouble : -Peak flow 300:370:280 01-30-2020 Unclassified (9 sources) Cold Symptoms - Symptoms include nasal [...] includes non-prescription cold medication and antibiotics (augmentin [id number] from [facility] 10 days ago. Pt. still has 5 pills left.). Risk factors do not include smoking. The patient has not been exposed to an individual with similar symptoms. Medical history includes recurrent sinusitis, but patient denies history of asthma or tonsillectomy. 08-01-2019 Unclassified (9 sources) Well child visit #4 - 14 [...] and participates in extracurricular activities. 05-30-2019 Unclassified (9 sources) Well child visit #4 - 14 [...] belts and home smoke detectors. 06-08-2018 Unclassified (9 sources) Cold Symptoms - Symptoms include nasal [...] tonsillectomy or recurrent ear infections. 04-06-2018 Unclassified (9 sources) Cold Symptoms - Symptoms include nasal [...] history of asthma or tonsillectomy. 01-10-2018 Unclassified (9 sources) Acne - The onset of the acne has been gradual and has been occurring for years. Note for Acne : -Went to [facility] and tried some therapies. They think it is hormone related and suggested eval with PCP for OCP. She is using a special soap from their boutique. Her menses are irregular. 12-27-2017 Unclassified (9 sources) Well child visit #4 - 14 [...] past year. Reviewed by ALEX. 06-09-2017 Unclassified (9 sources) Cold Symptoms - Symptoms include nasal [...] Medical history includes seasonal allergies. 01-12-2017 Unclassified (9 sources) Cold Symptoms - Symptoms include nasal [...] this was from the contacts 10-07-2016 Unclassified (6 sources) Knee pain - The onset of the knee pain has been sudden following an incident not at work and has been occurring for 6 days. Note for Knee pain : -[place] knee cap pop to the side while playing softball. She reduced it and has minimal pain but has some swelling. She is asking aobut strengthening exercises. She is wearing a brace. 06-02-2016 Unclassified (6 sources) [ADDITIONAL REASON] Well child visit #4 - to 18 years - The child is here for a 14 to 16 year well-child visit. The primary caregiver is the mother and father. Family status: coping adequately. There are no behavioral problems. The patient is eating a variety of foods. The child performs well in school, interacts well with peers and participates in extracurricular activities. 06-02-2016 Unclassified (9 sources) Well child visit #4 - to 18 years - The child is [...] 13 to 17 years : reviewed by [facility] 06-18-2015 Unclassified (9 sources) Well child visit #3 - 5 [...] 13 years : -Sports physical. 05-15-2014 Unclassified (9 sources) Cold Symptoms - Symptoms include nasal [...] for Upper respiratory infection : reviewed by [facility] 01-16-2013 Unclassified (9 sources) Breast pain - The breast pain [...] had to be surgically removed. 10-27-2012 Unclassified (9 sources) Dizziness - The onset of the [...] denies any new sexual contacts. 10-07-2023 Unclassified (5 sources) Anxiety - The onset of the [...] at this time. 05-28-2020 Unclassified (5 sources) [ADDITIONAL REASON] Well adult female - The patient feels well with no complaints. The patient has a balanced diet. The patient exercises daily. The patient sleeps 8 hours per night. Note for Well adult female : Reviewed by Demetra King PA-C. 05-28-2020 Unclassified (3 sources) Well child visit #4 - 14 [...] and participates in extracurricular activities. 06-02-2016 Unclassified (3 sources) [ADDITIONAL REASON] Knee pain - The onset of the knee pain has been sudden following an incident not at work and has been occurring for 6 days. Note for Knee pain : -[place] knee cap pop to the side while playing softball. She reduced it and has minimal pain but has some swelling. She is asking aobut strengthening exercises. She is wearing a brace. 06-02-2016 Results Test Name Value Interpretation Reference Range Facil ity Vital Signs Date Time Vital Sign Value Performing Clinician Aaron rodriguez 12-15-2023 08:51-0500 Body height 167.64 cm Elizabeth Ratliff LPN [facility], [facility].; [facility]. 12-15-2023 08:51-0500 Body mass index (BMI) [Ratio] 22.92 kg/m2 Elizabeth Ratliff LPN [facility], [facility].; [facility], [facility]. 12-15-2023 08:51-0500 Body surface area Derived from formula 1.73 m2 Elizabeth Ratliff LPN [facility], [facility].; [facility], [facility] 12-15-2023 08:51-0500 Body temperature 98.7 [degF] Elizabeth Ratliff LPN [facility]; [facility] Encounters Encounter Date Encounter Type Care Provider Facility Start: 12-21-2023 End: 12-21-2023 Orders Ildefonso Wynn MD Work Phone: [facility] Start: 12-15-2023 End: 12-15-2023 Office outpatient visit 15 minutes Ildefonso Wynn MD Work Phone: [facility] Start: 12-14-2023 End: 12-14-2023 Orders Ildfeonso Wynn MD Work Phone: [facility] Start: 12-12-2023 ambulatory ILDEFONSO WYNN [facility] Start: 12-12-2023 End: 12-12-2023 Orders Ildefonso Wynn MD Work Phone: [facility] Start: 11-18-2023 End: 11-18-2023 Office outpatient visit 15 minutes Ildefonso Wynn MD Work Phone: [facility] Start: 11-04-2023 End: 11-04-2023 Office outpatient visit 15 minutes Ildefonso Wynn MD Work Phone: [facility] Start: 10-07-2023 End: 10-07-2023 Office outpatient visit 25 minutes Ildefonso Wynn MD Work Phone: [employer]. Start: 02-21-2023 End: 02-21-2023 Procedure Ildefonso Wynn MD Work Phone: [facility] Start: 12-23-2022 End: 12-23-2022 Office outpatient visit 15 minutes Ildefonso Wynn MD Work Phone: [employer]. Start: 12-09-2022 End: 12-10-2022 ambulatory BERTHA~[id number] JA STONE [facility] Start: 12-09-2022 End: 12-09-2022 Subsequent hospital visit by physician Bertha Michael APRN Work Phone: [facility] Procedures Date Procedure Procedure Detail Performing Clinician Start: 12-15-2023 End: 12-21-2023 Brncdilat rspse spmtry pre&post-brncdilat admn Martin Avelar PA-C Work Phone: Start: 12-15-2023 End: 12-16-2023 Chest x-ray Martin Sanchez Work Phone: Start: 11-04-2023 End: 11-04-2023 No Known Past Surgical History Pura Wyatt MA Start: 02-21-2023 End: 02-21-2023 Insj non-biodegradable drug delivery implant Crystal Kyra Lucie CNM Work Phone: Start: 12-09-2022 INFLUENZA A & B, SWAB/NW Bertha Michael CLUB STEWARD Work Phone: Start: 12-09-2022 SARS-COV-2 AG, QL Bertha Michael CLUB STEWARD Work Phone: Start: 12-09-2022 STREP-A SCREEN Bertha palomino CLUB STEWARD Work Phone: Start: 07-20-2022 CBC panel - Blood by Automated count Rodolfo Barrios APRN Work Phone: Start: 07-20-2022 Comprehensive metabo lic 2000 panel - Serum or Plasma Rodolfo Wagnerciaran PENALOZAN Work Phone: Start: 07-20-2022 MONO SEROLOGY Rodolfo cox CLUB STEWARD Work Phone: Start: 07-20-2022 TSH, HIGH SENSITIVITY K lucius Barrios CLUB STEWARD Work Phone: Start: 02-11-2022 Hepatic function 200 [...] End: 06-18-2015 Screening test visual acuity quantitative bilat Gustavo Harris MD Work Phone: Start: 05-15-2014 End: 05-15-2014 Screening test visual acuity quantitative bilat Ildefonso Wynn MD Work Phone: Start: 10-27-2012 End: 10-27-2012 Us exam, breast(s) Martin Sanchez Work Phone: Plan of Treatment Date Care Activity Detail Author Start: 06-25-2031 DTAP/TDAP/TD VACCINE (3 - Td or Tdap) DTAP/TDAP/TD VACCINE (3 - Td or Tdap) [facility] Start: 12-21-2023 Brncspsm provocation eval bar gauger and lubricator tender spmtry w/admn agt BRONCHOPROVOCATION TESTING WITH METHACHOLINE (83381) Start: 21-Dec-2023 Intent Comments: See previous PFTs and proceed with Dr. Phillips's recommendation on that report [employer]; [employer] Immunizations Immunization Date Immunization Notes Care Provider Fa cility 06-26-2021 COVID-Pfizer (30 MCG /0.3 ML) Ildefonso Wynn MD Work Phone: [employer]; [employer] 05-28-2020 Counseled parent on risks/benefits of vaccines (22217) Ildefonso Wynn MD Work Phone: [employer]; [employer] 05-30-2019 Meningococcal, MCV4, unspecified conjugate formulation(groups A, C, Y and W-135) Ildefonso Wynn MD Work Phone: [employer]; [employer] 05-30-2019 Counseled parent on risks/benefits of vaccines ([id number]) Ildefonso Wynn MD Work Phone: [employer]; [employer] 05-30-2019 meningococcal polysaccharide (groups A, C, Y and W-135) diphtheria toxoid conjugate vaccine (MCV4P) Ildefonso Wynn MD Work Phone: [employer]; [employer] Payers Date Payer Category Payer Unknown [employer] [id number] 2018-Present [address] [place] [address] [id number] 2018 Unknown [id number] 2001 Unknown [id number] Unknown [id number] Social History Date Type Detail Facility Start: 12-16-2020 Tobacco smoking stat us NEIS Never smoked tobacco [facility] Start: 12-16-2020 Tobacco use and exposure Smokeless tobacco non-user [facility] Start: 2001 Sex Assigned At Not on file [facility] Start: 02-01-2022 End: 07-20-2022 Exposure to SARS-CoV-2 (event) Not sure [facility] Parents Parents [facility]; [facility] Tobacco Use: Tobacco Use: ; N ever smoker. [facility] Tobacco/Smoke Exposure: Tobacco/Smoke Exposure: ; None. 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 Expl anation Advance Directives and Living Will Power of Sexer Summary Purpose Family History Father Status:Active Comments:In [...] Care Teams (unrecognized sec tion and content) Intake Worker Relationship Specialty Start Date End Date Domingo Adams, CLUB STEWARD [address] [place] [id number] PCP - General Nurse Practitioner 01/09/21 Dread Corona MD [address] [place] [address] Sports Medicine 01/19/21 Intake Worker Relationship Specialty Start Date End Date Domingo Adams, CLUB STEWARD [address] [place] [address] PCP - General Nurse Practitioner 01/09/21 Dread Corona MD [address] [place] [address] Sports Medicine 01/19/21 INFORMATION SOURCE (unrecogn ized section and content) DATE CREATED AUTHOR AUTHOR'S ORGANIZ ATION 11/07/2023 [facility] DATE CREATED AUTHOR AUTHOR'S ORGANIZ ATION 12/12/2023 [facility] FOR RECORDS PERTAINING TO PATIENTS WHO [...] BE BASED ON THE PRIMARY CLINICAL RECORDS. [employer] provides no warranty or guarantee of the accuracy or completeness of information in this document.
== END | disposition home or self-care (01) ==
PROVIDERS: PCP Family Medicine; Referring Provider Physician Assistant; Visit Provider Physician Assistant
DX: N20.0 Calculus of kidney (principal)
CPT/HCPCS: 74176

== ENCOUNTER → 2024-01-13 | Outpatient (CLI) | payer OTHER, SELFPAY ==
[2024-01-13 16:14] LABS: Bacteria 0 SEEN /hpf (None Seen); Mucous, Urine 0 SEEN /hpf (<or=2+); Red Blood Cells-Urine 0 SEEN /hpf (0-5); Squamous Epithelial Cells - UA 0 SEEN /hpf (5-10); White Blood Cells 0 SEEN /hpf (0-5)
[2024-01-13 17:13] LABS: Color, Urine Yellow (Yellow); Glucose, Dipstick Normal (Normal); Ketone-Dipstick 5 mg/dl (Negative); Leukocyte Esterase-Dipstick Negative /ul (Negative); Nitrite-Dipstick Negative (Negative); Occult Blood-Urine 25 /ul (Negative); Protein-Dipstick 15 mg/dl (Negative); Specific Gravity, Urine 1.025 (1.002-1.030); Urine Bilirubin Dipstick Negative (Negative); Urine Clarity Turbid (Clear); Urine Urobilinogen Normal (Normal)
[2024-01-13 17:37] LABS: Amorphous Sediment 4+
== END | disposition home or self-care (01) ==
LOC: LABSPEC 15:32
PROVIDERS: PCP Family Medicine; Referring Provider Physician Assistant Surgical; Visit Provider Physician Assistant Surgical
DX: R30.0 Dysuria (principal)
CPT/HCPCS: 81001; 87086

== ENCOUNTER → 2025-05-31 | Outpatient (CLI) | payer OTHER, SELFPAY ==
--- OUTSIDE RECORDS SUMMARY | 2025-05-31 22:24 | XMS RPT_ITS | CCD ---
Author Organization [facility] Care Team Providers Care Brand Designer Name Role Phone Bryan AGUILAR, Bindyaben Primary Care Provider Dread Ni MD Unavailable JENNINGS, BINDYABEN Primary Care Unavailable BARRIOS, RODOLFO~[phone] BARRIOS Attending Un available BARRIOS, RODOLFO~[phone] BARRIOS Referring Un available JENNINGS, BINDYABEN Primary Care Unavailable DREAD NI Attending Unavailable JENNINGS, BINDYABEN Primary Care Unavailable SEAGRAVES BERTHA, BERTHA~[id number] SEAGRAVES Attending Unavailable SEAGRAVES BERTHA, BERTHA~[id number] SEAGRAVES Referring Unavailable JENNINGS, BINDYABEN Attending Unavailable JENNINGS, BINDYABEN Primary Care Unavailable ORDER, TRANSCRIBE Attending Unavailable ORDER, TRANSCRIBE Referring Unavailable JENNINGS, BINDYABEN Primary Care Unavailable JENNINGS, BINDYABEN Attending Unavailable JENNINGS, BINDYABEN Referring Unavailable JENNINGS, BINDYABEN Primary Care Unavailable BARRIOS, RODOLFO~[phone] BARRIOS Attending Un available BARRIOS, RODOLFO~[phone] BARRIOS Referring Un available JENNINGS, BINDYABEN Primary Care Unavailable SEAGRAVES BERTHA, BERTHA~[id number] SEAGRAVES Attending Unavailable SEAGRAVES BERTHA, BERTHA~[id number] SEAGRAVES Referring Unavailable JENNINGS, BINDYABEN Primary Care Unavailable HERRERA, XOCHILT P Attending Unavailable JENNINGS, BINDYABEN Primary Care Unavailable HERRERA, XOCHILT P Attending Unavailable HERRERA, XOCHILT P Referring Unavailable JENNINGS, BINDYABEN Primary Care Unavailable ORDER, TRANSCRIBE Attending Unavailable JENNINGS, BINDYABEN Primary Care Unavailable NILES Renteria Attending Provider Dr. Ildefonso Rodriguez Primary Care Provider [phone] Dr. Ildefonso Rodriguez Referring Provider Jennifer MONTENEGRO, Ildefonso Baltazar Unavailable Physical Therapy, Israel Cardenas Unavailable Mehnaz FRUIT GROWER, Tonya Unavailable Fernando WRIGHT, Demetra Santos Unavailable Steven MONTENEGRO, Gustavo Nava Unavailable Thea WRIGHT, Denia Egan Unavailable Edmundo FUENTES, Pura Unavailable Unavailable Steve FRUIT GROWER, Esperanza Unavailable Unavailable B[employer] SOFTWARE DEVELOPER-C, Jhonatan Mace Unavailable Shira CARRILLO, Denia Baltazar Unavailable Unavaila ble Martdavid FRUIT GROWER, Coty Unavailable Unavailable Aleyda CARRILLO, Ruth Chavira Unavailable Unavailable Valentino WRIGHT, Rae Santos Unavailable Raghu (Sukumar), Zac Unavailable Unavailab le Richert FRUIT GROWER, Brooklynn L Unavailable Unavailab le Evy FRUIT GROWER, Elizabeth Trujillo Unavailable Unavailab le Sophia FRUIT GROWER, Ciera Streeter Unavailable Unavailab le Uptain CNM, Crystal K Unavailable Vess FRUIT GROWER, Neamadore L Unavailable Unavailable Wengerd FRUIT GROWER, Aurora Unavailable Unavailabl e David FRUIT GROWER, Laila Unavailable Unavailable Unavailable Unavailable ILDEFONSO RODRIGUEZ Consulting Unavailable RAE AVELAR Admitting Unavailable RAE AVELAR Primary Care Unavailable RAE AVELAR Attending Unavailable PROVIDER, UNKNOWN Consulting Unavailable PROVIDER, UNKNOWN Consulting Unavailable PROVIDER, UNKNOWN Consulting Unavailable Urologist Provider Unavailable Unavailable Dr. Ildefonso Rodriguez Primary Care Provider NILES Harding Referring Provider NILES Harding Other Provider Dr. Tyree Phillips Attending Provider Claribel CARRILLO, Amber L Unavailable Unavail able Dr. Ildefonso Rodriguez Referring Provider NILES Waldrop Attending Provider Dr. Ildefonso Rodriguez Primary Care Provider Valentino CAGE PA Rae Referring Provider Valentino CAGE PA Rae Other Provider Dr. Tyree Phillips Attending Provider Dr. Ildefonso Rodriguez Referring Provider NILES Waldrop Attending Provider Apolonia Munoz LPN Unavailable Unavailabl e Gastroenterology Provider Unavailable Unavai lable Vaccariello, Ildefonso Primary Care Unavailable Pollo CAGE, Nathen Attending Unavailable Vaccariello, Ildefonso Referring Unavailable Avelar PA, Rae Attending Unavailable Avelar PA, Rae Referring Unavailable Vaccariello, Ildefonso Primary Care Unavailable Vaccariello, Ildefonso Primary Care Unavailable Avelar PA, Rae Referring Unavailable Avelar PA, Rae Attending Unavailable Vaccariello, Ildefonso Primary Care Unavailable Pollo CAGE, Nathen Attending Unavailable Pollo CAGE, Nathen Referring Unavailable Avelar PA, Rae Attending Unavailable Vaccariello, Ildefonso Primary Care Unavailable Avelar PA, Rae Referring Unavailable Avelar PA, Rae Attending Unavailable Avelar PA, Rae Referring Unavailable Vaccariello, Ildefonso Primary Care Unavailable Avelar PA, Rae Attending Unavailable Avelar PA, Rae Referring Unavailable Vaccariello, Ildefonso Primary Care Unavailable Vaccariello, Ildefonso Primary Care Unavailable Timo Castro Attending Unavailable Vaccariello, Ildefonso Referring Unavailable Vaccariello, Ildefonso Primary Care Unavailable Pollo CAGE, Nathen Attending Unavailable Vaccariello, Ildefonso Referring Unavailable Vaccariello, Ildefonso Primary Care Unavailable Francois Renteria Attending Unavailable Vaccariello, Ildefonso Referring Unavailable Tyree Phillips Attending Unavailable Vaccariello, Ildefonso Primary Care Unavailable Avelar PA, Rae Referring Unavailable Valentino CAGE, Rae Consulting Unavailable Dr. Ildefonso Rodriguez MD Primary Care Provider Dr. Ildefonso Rodriguez MD Referring Provider Nathen Waldrop Attending Provider Medications Current Medications Medication Drug Class(es) Dates Sig (Normalized) Sig (Original) amoxicillin 500 mg oral tablet (9 sources) Penicillin-class Antibacterial Start: 12-09-2022 End: 12-19-2022 take 1 tablet by mouth twice daily amoxicillin (AMOXIL) 500 mg tablet Indications: Sore throat , Tonsillitis , Pharyngitis, unspecified etiology Take 1 Tablet by mouth Twice a day for 10 days. 20 Tablet 0 12/09/2022 12/19/2022 Active Start: 04-09-2019 End: 04-19-2019 take 2 capsules by mouth twice daily Amoxicillin 500 mg capsule Discontinued 1000 mg PO TWICE A DAY 40 10 April 09, 2019 12:00am April 18, 2019 12:00am April 19, 2019 12:06am recommend not starting until 04/16/19, and only if still symptomatic at that time Start: 04-09-2019 End: 04-19-2019 take 1000 mg by mouth twice daily Amoxicillin Discontinued 1000 MG PO TWICE A DAY 40 April 09, 2019 12:00April 19, 2019 12:06am recommend not starting until 04/16/19, and only if still symptomatic at that time ascorbic acid 500 mg oral tablet (11 sources) Vitamin C Vitamin C 500 mg tablet ; 1 daily (500 mg) Cranberry preparation (11 sources) Non-Standardized Food Allergenic Extract, Non-Standardized Plant Allergenic Extract cranberry extract 425 mg capsule ; 1 daily (425 mg) dextromethorphan hydrobromide 15 mg / guaiFENesin 400 mg / pseudoephedrine hydrochloride 60 mg oral tablet (1 source) alpha-Adrenergic Agonist, Uncompetitive J-czkoxo-U-aspartate Receptor Antagonist, Sigma-1 Agonist Start: take 1 tablet by mouth every six hours pseudoephedrine-DM- guaiFENesin (CAPMIST DM) 60-15-400 mg per tablet Indications: Acute non-recurrent maxillary sinusitis Take 1 Tablet by mouth Every 6 hours. 30 Tablet 0 08/11/2022 Active docusate sodium 100 mg oral capsule (11 sources) Colace 100 mg capsule ; 1 daily (100 mg) Etonogestrel (Nexplanon) 68 mg implant (1 source) Start: Etonogestrel (Nexplanon) 68 mg implant Active 1 NMA subdermal ONCE November 19, 2024 1:00am as a single dose fluticasone propionate 0.05 mg/actuat metered dose nasal spray (20 sources) Corticosteroid Start: 022 take 2 spray(s) nasal route once daily, then take 2 spray(s) nasal route once daily fluticasone propionate (FLONASE) 50 mcg/Actuation nasal spray Indications: Acute non-recurrent maxillary sinusitis [place] 2 Sprays in nose Once Daily. Two sprays in each nostril daily. 1 Each 0 08/11/2022 Active Start: 01-30-2020 End: 06-29-2022 take 2 puff(s) by inhalation once daily Flovent HFA 220 MCG/ACT Inhalation Aerosol ; 2 (two) Puff Puff daily for 0 days Quantity: 1 {Inhaler} Refills: 5 Ordered: 29-Jun-2022 MILTON Wilson Start: 30-Jan-2020 End: 29-Jun-2022 Status: Inactive Start: 09-24-2015 End: 05-06-2016 FLUTICASONE PROPIONATE, 50MC G/ACT (Nasal Suspension) ; 2 (two) sprays qhs for 0 days Quantity: 16 {Gram} Refills: 3 Ordered: 06-May-2016 MILTON Earl Start: 24-Sep-2015 End: 06-May-2016 Status: Inactive hydrOXYzine hydrochloride 25 mg oral tablet (3 sources) Antihistamine Start: 03-19-2025 hydrOXYzine HC L 25 mg tablet ; 1/2 to 1 tablet as needed TID for anxiety for 0 days Quantity: 30 {Tablet} Refills: 0 Ordered: 19-Mar-2025 MD Gustavo Harris Start: 19-Mar-2025 Comments: Medication taken as needed. Start: 10-17-2024 hydrOXYzine HC L 25 mg tablet ; 1/2 to 1 tablet as needed TID for anxiety for 0 days Quantity: 30 {Tablet} Refills: 0 Ordered: 17-Oct-2024 KYLE Avelar Start: 17-Oct-2024 Comments: Medication taken as needed. Start: 10-17-2024 hydrOXYzine HC L 25 mg tablet ; 1/2 to 1 tablet as needed for anxiety for 0 days Quantity: 30 {Tablet} Refills: 0 Ordered: 17-Oct-2024 KYLE Avelar Start: 17-Oct-2024 Comments: Medication taken as needed. Comment on above: Medication taken as needed. ISOtretinoin (1 source) Retinoid take 1 capsule by mouth twice daily isotretinoin (ACCUTANE PO) Take 1 Capsule by mouth Twice a day. 0 Active ketorolac tromethamine 10 mg oral tablet (2 sources) Nonsteroidal Anti-inflammatory Drug, Cyclooxygenase Inhibitor Start: 021 take 1 tablet by mouth every eight hours as needed ketorolac (TORADOL) 10 mg tablet Indications: Abscess Take 1 Tab by mouth Every 8 hours as needed. 10 Tab 0 12/16/2020 Active lactobacillus acidophilus [id number] unt oral capsule (11 sources) Probiotic 10 sonja lion cell capsule ; 1 daily (10 billion cell) nitrofurantoin, macrocrystals 25 mg / nitrofurantoin, monohydrate 75 mg oral capsule (4 sources) Nitrofuran Antibacterial Start: 025 take 1 capsule by mouth every twelve hours at mealtime Nitrofurantoin Monohyd/M-Cryst 100 mg capsule Active 1 NMA PO Q12H 14 7 0 May 31, 2025 12:00am June 06, 2025 12:00am administer with a meal/food; swallow whole; do not open, crush, dissolve , or chew Start: 01-13-2024 End: 01-20-2024 take 1 capsule by mouth every twelve hours at mealtime Nitrofurantoin Monohyd/M-Cryst 100 mg capsule Discontinued 1 NMA PO Q12H 14 7 0 January 13, 2024 1:00am January 19, 2024 1:00am January 20, 2024 1:04am administer with a meal/food; swallow whole; do not open, crush, dissolve , or chew [place] (Nk) (5 sources) Start: 08-03-2023 [place] (Nk) A ctive August 02, 2023 11:00pm Start: 08-03-2023 [place] (Nk) A ctive August 03, 2023 12:00am Completed/Discontinued Medications Medication Drug Class(es) Dates Sig (Normalized) Sig (Original) [id number] 200 actuat albuterol 0.09 mg/actuat metered dose inhaler (20 sources) beta2-Adrenergic Agonist Start: 10-07-2023 End: 02-01-2024 take 2 puff(s) by inhalation every four to six hours as needed Ventolin HFA 90 mcg/actuation aerosol inhaler ; 2 (two) puff(s) every 4-6hrs prn for 0 days Quantity: 1 {Each} Refills: 1 Ordered: 01-Feb-2024 MILTON Munoz Start: 07-Oct-2023 End: 01-Feb-2024 Status: Inactive Start: 01-12-2021 take 2 puff(s) by in halation every four hours as needed for wheezing albuterol (PROAIR HFA) 90 mcg/Actuation inhaler Indications: Wheezing , SOB (shortness of breath) on exertion Take 2 Puffs by inhalation Every 4 hours as needed (wheezing). 1 Inhaler 0 01/12/2021 Active Start: 01-30-2020 End: 10-07-2023 take 2 puff(s) by inhalation every four to six hours ProAir HFA 90 mcg/actuation aerosol inhaler ; 2 (two) puffs Every 4-6 hours for 0 days Quantity: 1 {Inhaler} Refills: 5 Ordered: 07-Oct-2023 KYLE King Start: 30-Jan-2020 End: 07-Oct-2023 Status: Discontinued Comments: Discontinued by Medication vendor. Comment on above: Discontinued by [employer] vendor. amoxicillin 875 mg / clavulanate 125 mg oral tablet (20 sources) Penicillin-class Antibacterial Start: 12-21-2023 End: 12-28-2023 amoxicillin 875 mg-potassium clavulanate 125 mg tablet ; 1 (one) tablet BID for 7 days Quantity: 14 {Tablet} Refills: 0 Ordered: 21-Dec-2023 KYLE Avelar Start: 21-Dec-2023 End: 28-Dec-2023 Status: Inactive Start: 04-06-2018 End: 11-28-2023 Augmentin 875 mg-125 mg tabl et ; 1 Tab two times daily for 10 days Quantity: 20 {Tablet} Refills: 0 Ordered: 18-Nov-2023 KYLE Avelar Start: 06-Apr-2018 End: 18-Nov-2023 Status: Discontinued Comments: Discontinued by Medication vendor. Comment on above: Discontinued by [employer] vendor. Take with food azithromycin 250 mg oral tablet (20 sources) Macrolide Antimicrobial Start: 10-04-20 End: 11-19-20 take 2-5 tablets by mouth once daily Azithromycin 250 mg tablet Discontinued 0 PO .COMPLEX 6 0 October 04, 2024 1:00am November 19, 2024 1:29pm take 500 mg today (day 1), then 250 mg for 4 days (days 2-5) PO Start: 08-01-2019 End: 01-02-2020 Zithromax Z-Nikky 250 MG Oral Tablet ; 2 (two) Tabs day one, then one daily for 4 days for 0 days Quantity: 1 {Package} Refills: 0 Ordered: 02-Jan-2020 MILTON Cortes Ciera Streeter Start: 01-Aug-2019 End: 02-Jan-2020 Status: Inactive busPIRone hydrochloride 5 mg oral tablet (20 sources) Start: 10-07-2023 End: 02-01-2024 busPIRone 5 mg tablet ; 1 (one) tablet two times daily for 30 days Quantity: 60 {Tablet} Refills: 2 Ordered: 01-Feb-2024 MILTON Munoz Start: 07-Oct-2023 End: 01-Feb-2024 Status: Inactive cephalexin 500 mg oral capsule (20 sources) Cephalosporin Antibacterial Start: 12-26-2017 End: 04-06-2018 take 1 capsule by mouth three times daily Cephalexin 500 MG Oral Capsule ; 1 (one) Capsule Capsule tid for 0 days Quantity: 30 {Capsule} Refills: 0 Ordered: 06-Apr-2018 LORENA Maynard Start: 26-Dec-2017 End: 06-Apr-2018 Status: Inactive Start: 09-24-2015 End: 10-04-2015 take 1 capsule by mouth three times daily CEPHALEXIN, 500MG (Oral Capsule) ; 1 Capsule three times daily for 10 days Quantity: 30 {Capsule} Refills: 0 Ordered: 24-Sep-2015 MD Ildefonso Rodriguez Start: 24-Sep-2015 End: 04-Oct-2015 Status: Inactive ciprofloxacin 500 mg oral tablet (20 sources) Quinolone Antimicrobial Start: 11-04-2023 End: 11-11-2023 ciprofloxacin 500 mg tablet ; 1 (one) tablet two times daily for 7 days Quantity: 14 {Tablet} Refills: 0 Ordered: 04-Nov-2023 KYLE King Start: 04-Nov-2023 End: 11-Nov-2023 Status: Inactive escitalopram 10 mg oral tablet (20 sources) Serotonin Reuptake Inhibitor Start: 11-16-2022 End: 12-23-2022 take 1 tablet by mouth once daily Escitalopram Oxalate 10 MG Oral Tablet ; 1 (one) Tablet daily for 0 days Quantity: 90 {Tablet} Refills: 1 Ordered: 23-Dec-2022 MILTON Kate Start: 16-Nov-2022 End: 23-Dec-2022 Status: Inactive Ethinyl Estradiol / norgestimate (20 sources) Progestin, Estrogen Start: 08-26-2022 End: 12-23-2022 take 1 tablet by mouth once daily Sprintec 28 0.25-35 MG-MCG Oral Tablet ; 1 (one) Tablet daily for 0 days Quantity: 1 {Tablet} Refills: 2 Ordered: 23-Dec-2022 MILTON Kate Start: 26-Aug-2022 End: 23-Dec-2022 Status: Inactive Norgestimate-Eth inyl Estradiol 0.18/0.215/0.25 mg-35 mcg (28) Tab Take by mouth Daily. 0 Active Norgestimate-Eth inyl Estradiol (TRI-SPRINTEC, 28,) 0.18/0.215/0.25 mg-35 mcg (28) Tab Take by mouth Daily. 0 Active loratadine 1 mg/ml oral solution (20 sources) Start: 03-23-2011 End: 05-15-2014 LORATADINE, 5MG/5ML (Oral Solution) ; 2 (two) teaspoon(s) daily for 0 days Quantity: 120 {cc} Refills: 0 Ordered: 23-Mar-2011 MILTON Darby Start: 23-Mar-2011 End: 15-May-2014 Status: Discontinued Comments: This order discontinued per [employer]. Comment on above: This order discontin ued per [employer]. methylPREDNISolone 4 mg oral tablet (4 sources) Corticosteroid Start: 05-28-2024 End: 10-10-2024 take 1 tablet by mouth once Methylprednisolone (Medrol (Nikky)) 4 mg tablets,dose pack Discontinued 4 mg PO per package directions 21 6 0 October 04, 2024 1:00am October 09, 2024 1:00am October 10, 2024 1:17am Start: 01-12-2021 methylPREDNISo lone (MEDROL, NIKKY,) 4 mg tablet Indications: Wheezing , SOB (shortness of breath) on exertion Take 1 Tab by mouth As directed. follow package directions 1 Package 0 01/12/2021 Active mupirocin 20 mg/ml topical cream (20 sources) RNA Synthetase Inhibitor Antibacterial Start: 12-13-2016 End: 01-12-2017 Mupirocin Calcium 2 % External Cream ; apply Cream three times daily for 0 days Quantity: 22 {Gram} Refills: 0 Ordered: 12-Jan-2017 MILTON Darby Start: 13-Dec-2016 End: 12-Jan-2017 Status: Inactive oseltamivir 75 mg oral capsule (20 sources) Neuraminidase Inhibitor Start: 01-11-2019 End: 01-16-2019 take 1 capsule by mouth twice daily Oseltamivir 75 mg capsule Discontinued 75 mg PO TWICE A DAY 10 5 0 January 11, 2019 1:00am January 15, 2019 1:00am January 16, 2019 1:09am Start: 01-10-2018 End: 01-15-2018 take 1 capsule by mouth twice daily Tamiflu 75 MG Oral Capsule ; 1 (one) Capsule two times daily for 5 days Quantity: 10 {Capsule} Refills: 0 Ordered: 10-Jan-2018 Start: 10-Jan-2018 End: 15-Jan-2018 Status: Inactive PARoxetine hydrochloride 20 mg oral tablet (20 sources) Serotonin Reuptake Inhibitor Start: 11-10-2020 End: 06-29-2022 take 1 tablet by mouth once daily PARoxetine HCl 20 MG Oral Tablet ; 1 (one) Tablet daily for 30 days Quantity: 30 {Tablet} Refills: 9 Ordered: 29-Jun-2022 MILTON Wilson Start: 10-Nov-2020 End: 29-Jun-2022 Status: Discontinued take 1 tablet by mouth once tanvi y PARoxetine (PAXIL) 10 mg tablet Take 10 mg by mouth Daily. 0 Active sertraline 50 mg oral tablet (20 sources) Serotonin Reuptake Inhibitor Start: 06-29-2022 End: 12-23-2022 take 1 tablet by mouth once daily Sertraline HCl 50 MG Oral Tablet ; 1 (one) Tablet daily for 0 days Quantity: 60 {Tablet} Refills: 0 Ordered: 23-Dec-2022 MILTON Kate Start: 29-Jun-2022 End: 23-Dec-2022 Status: Inactive sulfacetamide sodium 100 mg/ml ophthalmic solution (20 sources) Sulfonamide Antibacterial Start: 10-07-2016 End: 12-13-2016 take 2 drop(s) into the eye(s) four times daily Sulfacetamide Sodium 10 % Ophthalmic Solution ; 2 (two) drops OU qid for 0 days Quantity: 5 {Milliliter} Refills: 0 Ordered: 13-Dec-2016 MILTON Darby Start: 07-Oct-2016 End: 13-Dec-2016 Status: Inactive sulfamethoxazole 800 mg / trimethoprim 160 mg oral tablet (20 sources) Dihydrofolate Reductase Inhibitor Antibacterial, Sulfonamide Antimicrobial Start: 12-13-2023 End: 12-15-2023 sulfamethoxazole 800 mg-trimethoprim 160 mg tablet ; 1 (one) tablet two times daily for 7 days Quantity: 14 {Tablet} Refills: 0 Ordered: 15-Dec-2023 MILTON Darby Start: 13-Dec-2023 End: 15-Dec-2023 Status: Inactive Start: 10-07-2023 End: 10-12-2023 sulfamethoxazole 800 mg-trim ethoprim 160 mg tablet ; 1 (one) tablet two times daily for 5 days Quantity: 10 {Tablet} Refills: 0 Ordered: 07-Oct-2023 KYLE King Start: 07-Oct-2023 End: 12-Oct-2023 Status: Inactive triamcinolone acetonide 0.055 mg/actuat metered dose nasal spray (20 sources) Corticosteroid Start: 09-24-2015 End: 05-06-2016 TRIAMCINOLONE ACETONIDE, 55MCG/ACT (Nasal Aerosol) ; 2 (two) Aerosol 2 sprays qhs for 0 days Quantity: 16 {Gram} Refills: 3 Ordered: 06-May-2016 MILTON Earl Start: 24-Sep-2015 End: 06-May-2016 Status: Inactive valACYclovir 1000 mg oral tablet (1 source) Herpesvirus Nucleoside Analog DNA Polymerase Inhibitor, Herpes Simplex Virus Nucleoside Analog DNA Polymerase Inhibitor, Herpes Zoster Virus Nucleoside Analog DNA Polymerase Inhibitor Start: 05-28-2024 End: 11-19-2024 Valacyclovir 1 gram tablet Discontinued 1000 mg PO THREE TIMES A DAY 21 0 May 28, 2024 12:00am November 19, 2024 1:29pm venlafaxine 37.5 mg oral tablet (11 sources) Serotonin and Norepinephrine Reuptake Inhibitor Start: 10-01-2024 End: 10-17-2024 venlafaxine 37.5 mg tablet ; 1 (one) tablet daily for 0 days Quantity: 90 {Tablet} Refills: 1 Ordered: 17-Oct-2024 KYLE Avelar Start: 01-Oct-2024 End: 17-Oct-2024 Status: Inactive Start: 02-29-2024 venlafaxine 37 .5 mg tablet ; 1 (one) tablet daily for 0 days Quantity: 90 {Tablet} Refills: 1 Ordered: 29-Feb-2024 KYLE Avelar Start: 29-Feb-2024 Start: 02-01-2024 venlafaxine 37 .5 mg tablet ; 1 (one) tablet daily for 0 days Quantity: 30 {Tablet} Refills: 1 Ordered: 01-Feb-2024 KYLE Avelar Start: 01-Feb-2024 Comments: Can increase to 75mg once daily after 1 week if tolerating well. Comment on above: Can increase to 75mg once daily after 1 week if tolerating well. Problems Active Problems Problem Classification Problem Date Documented Da te Episodic/Chronic Acute and chronic tonsillitis (1 source) Acute tonsillitis, unspecified; Translations: [Acute tonsillitis, unspecified] Onset: 3 Episodic Acute bronchitis (20 sources) Acute bronchitis; Translations: [Acute bronchitis, unspecified] 05-28-2020 Episodic Administrative/social admission (1 source) Encounter for pre-employment examination; Translations: [Health examination of defined subpopulations] 06-28-2023 Episodic Anxiety disorders (20 sources) Generalized anxiety disorder; Translations: [Generalized anxiety disorder] 11-18-2023 Chronic Asthma (20 sources) Exercise-induced asthma; Translations: [Exercise induced bronchospasm] 11-18-2023 Chronic Calculus of urinary tract (20 sources) Kidney stone; Translations: [Calculus of kidney] Onset: 4 12-21-2023 Episodic Conditions associated with dizziness or vertigo (20 sources) Labyrinthitis, unspecified 03-24-2011 Episodic Gastrointestinal hemorrhage (6 sources) Gastrointestinal hemorrhage; Translations: [Hemorrhage of anus and rectum] 10-17-2024 Episodic Genitourinary symptoms and ill-defined conditions (20 sources) Urinary symptoms ; Translations: [Unspecified symptoms and signs involving the genitourinary system] Onset: 4 11-18-2023 Episodic Immunizations and screening for infectious disease (20 sources) Contact with and (suspected) exposure to other viral communicable diseases; Translations: [Need for prophylactic vaccination and inoculation against influenza] Onset: 2 09-15-2012 Episodic Inflammation; infection of eye (except that caused by tuberculosis or sexually transmitteddisease) (20 sources) Conjunctivitis; Translations: [Other mucopurulent conjunctivitis, left eye] 10-07-2016 Episodic Influenza (20 sources) Influenza due to Influenza A virus; Translations: [Influenza due to other identified influenza virus with other respiratory manifestations] 01-11-2019 Episodic Lymphadenitis (20 sources) Cervical lymphadenopathy; Translations: [Localized enlarged lymph nodes] Onset: Episodic Malaise and fatigue (20 sources) Fatigue; Translations: [Other fatigue] 05-15-2014 Episodic Menstrual disorders (20 sources) Irregular periods; Translations: [Irregular menstruation, unspecified] 05-28-2020 Chronic Nonmalignant breast conditions (20 sources) Breast lump; Translations: [Unspecified lump in unspecified breast] 10-27-2012 Episodic Nonspecific chest pain (20 sources) Chest pain; Translations: [Chest pain, unspecified] Onset: 4 02-29-2024 Episodic Other aftercare (20 sources) Patient encounter status; 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] Episodic Other gastrointestinal disorders (20 sources) Constipation; Translations: [Constipation, unspecified] 02-01-2024 Episodic Other infections; including parasitic (20 sources) H/O: chickenpox; Translations: [Personal history of other infectious and parasitic diseases] 05-28-2020 Episodic Other lower respiratory disease (19 sources) Dyspnea on exertion; Translations: [Shortness of breath] 11-18-2023 Episodic Other lower respiratory disease (20 sources) Cough; Translations: [Cough] 01-17-2017 Episodic Other lower respiratory disease (20 sources) Dyspnea; Translations: [Shortness of breath] 12-21-2023 Episodic Other skin disorders (20 sources) Acne vulgaris; Translations: [Acne vulgaris] Episodic Other upper respiratory disease (20 sources) Allergic disposition; Translations: [Other allergic rhinitis] 10-07-2016 Chronic Other upper respiratory disease (20 sources) Seasonal allergic rhinitis; Translations: [Other seasonal allergic rhinitis] 09-24-2015 Chronic Other upper respiratory infections (20 sources) Sinusitis; Translations: [Chronic sinusitis, unspecified] 04-09-2019 Chronic Other upper respiratory infections (20 sources) Sore throat symptom; Translations: [Acute pharyngitis, unspecified] Onset: 2 Episodic Otitis media and related conditions (20 sources) Otitis media of bilateral ears; Translations: [Otitis media, unspecified, bilateral] Onset: 4 11-18-2023 Episodic Residual codes; unclassified (20 sources) Finding of body mass index; Translations: [Body mass index (BMI) pediatric, 5th percentile to less than 85th percentile for age] 05-28-2020 Episodic Residual codes; unclassified (20 sources) Body mass index 20-24 - normal; Translations: [Body mass index (BMI) 22.0-22.9, adult] 05-28-2020 Episodic Residual codes; unclassified (20 sources) Up-to-date with immunizations; Translations: [Personal history of other drug therapy] 11-18-2023 Episodic Residual codes; unclassified (20 sources) Influenza vaccination declined; Translations: [Immunization not carried out because of patient refusal] 05-28-2020 Episodic Residual codes; unclassified (20 sources) Non-smoker; Translations: [Other specified health status] 05-28-2020 Episodic Skin and subcutaneous tissue infections (20 sources) Impetigo; Translations: [Impetigo, unspecified] 12-13-2016 Episodic Sprains and strains (20 sources) Sprain of ankle; Translations: [Sprain of unspecified ligament of left ankle, initial encounter] 08-03-2023 Episodic Unclassified (20 sources) control (initial visit) - The patient's motivation for contraception is the prevention of . Parental consent was not necessary. Previous methods of contraception have included: oral contraceptives (sprintec). The prior methods were considered to be successful. Previous pregnancies: none. Previous abortions/miscarriages : none. The patient denies breast discharge, headaches, jaundice, overdue menses, menstrual irregularities, vaginal bleeding or vaginal discharge. There is no STD history pertinent to this complaint. Note for Contraception : Was previously on oral contraception (sprintec). States she gained a lot of weight with pill and knows she does not want pill again.Patient will be moving to [place] in February. States she is unsure which form of contraception she is wanting at this time.She is not currently on a form of contraception. She reports normal cycles. She is not currently sexually active. 12-23-2022 Unclassified (20 sources) Vertigo - The onset of the [...] no associated anxiety or fever. Note for Vertigo: -Chronic allergies and stuffiness. Using Claritin and nose spray. Also states she is light sensitive. 09-24-2015 Unclassified (19 sources) asthma - Pt feels short of [...] some dysuria yesterday but none today. 12-15-2023 Unclassified (11 sources) Multiple concerns - Patient is here to follow up with urinary concerns, GI concerns and mental health concerns. Patient states she is seeing urology for chronic UTIs. Is currently on ATB therapy for this. Patient is mostly wanting to discuss a knot in her chest/abdomen and her anxious feeling.Urologist reviewed CT report and said she was very backed up with her stool and started her on supplements. No appetite at all over the past week. Feels like that has worsened. They started her on prophylactic daily abx and then culture did show UTI so she was on abx for that. Anxiety has been worse over the past week.Nothing recently that would have triggered the worsening. Is going to start counseling next week with Angela at [facility] in [place]. Has been off of buspirone x weeks - didn't like how she felt on it.Feeling really numb and not motivated to do things. Sleep is variable. 02-01-2024 Unclassified (8 sources) Follow up for multiple chronic conditions - The patient is here for follow-up of anxiety and depression. The patient always takes the prescribed medications. No side effects noted. The patient states that weight has increased and in general mood has improved. The patient states that the disease has no overall impact. Note for Multiple chronic conditions follow-up: Pt started taking med in the morning because when she took it in the evening she would wake at 3am and not sleep - doing well with current timing of the med. Didn't feel she needed to increase the dose since is doing so well. Did start counseling.Have left chest pain - no improvement even with anxiety being well controlled. Hurting into left shoulder now at times. 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 02-29-2024 Unclassified (3 sources) Rectal bleeding - The onset of the rectal bleeding has been acute and has been occurring for 3 days. The bleeding is characterized as blood streaking of toilet paper (on edge of the stool) and bloody toilet bowl water. The symptoms have been associated with hard stools. The accompanying symptoms include painful bowel movements. Note for Rectal bleeding: Pt has chronic constipation and has a moderate amount of mucus with her bowel movements.Consistently has been taking anxiety med, probiotic, and colace.Started metamucil daily fiber yesterday.Doesn't feel like that is helping she has to do a supplement - able to get a good amount out with that but doesn't really provide relief. Does have some rectal discomfort - feels like it is a plug. No abdominal pain.Trying to eat fiber and push fluids. 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 Note for UTI: Pt was treated for pyelonephritis and is still having urgency, pt denies any pain. No fever or back pain. Has nexplanon so has menstrual irregularity from that. Negative test. Feels a pressure and has less of it after urination.Denies constipation. 11-18-2023 Unclassified (20 sources) UTI - Symptoms include dysuria, urinary [...] urethral discharge or vaginal discharge. Note for UTI: Patient last took AZO yesterday.She was treated for a UTI last month with Bactrim and reports complete resolution of her symptoms at the time. 11-04-2023 Unclassified (16 sources) UTI - Symptoms include dysuria, urinary [...] nausea, vomiting or vaginal discharge. Note for UTI: Patient has no history of UTIs and denies any new sexual contacts. 10-07-2023 Unclassified (16 sources) [ADDITIONAL REASON] Concern - Patient also [...] shortness of breath at times. 10-07-2023 Unclassified (20 sources) control (initial visit) - The patient's [...] chance of at this time 02-21-2023 Unclassified (20 sources) Follow up for multiple chronic conditions [...] rarely noted. Note for Multiple chronic conditions follow-up: Patient reports that she has noted an [...] will be graduating in February. 06-29-2022 Unclassified (14 sources) Well adult female - The patient feels well with no complaints. The patient has a balanced diet. The patient exercises daily. The patient sleeps 8 hours per night. Note for Well adult female: Reviewed by Demetra King PA-C. 05-28-2020 Unclassified (14 sources) [ADDITIONAL REASON] Anxiety - The onset [...] tetany, vomiting or weight loss. Note for Anxiety: Patient states that she has been having [...] her anxiety at this time. 05-28-2020 Unclassified (20 sources) Breathing trouble - The onset of the breathing trouble has been gradual and has been occurring in a persistent pattern for 6 weeks. The breathing trouble is mild to moderate. It is described as tightness. The breathing trouble occurs on exertion. Note for Breathing trouble: -Peak flow 300:370:280 01-30-2020 Unclassified (20 sources) Cold Symptoms - Symptoms include nasal [...] includes non-prescription cold medication and antibiotics (augmentin [id number] from [employer] 10 days ago. Pt. still has 5 pills left.). Risk factors do not include smoking. The patient has not been exposed to an individual with similar symptoms. Medical history includes recurrent sinusitis, but patient denies history of asthma or tonsillectomy. 08-01-2019 Unclassified (20 sources) Well child visit #4 - 14 [...] and participates in extracurricular activities. 05-30-2019 Unclassified (20 sources) Well child visit #4 - 14 [...] belts and home smoke detectors. 06-08-2018 Unclassified (20 sources) Cold Symptoms - Symptoms include nasal [...] tonsillectomy or recurrent ear infections. 04-06-2018 Unclassified (20 sources) Cold Symptoms - Symptoms include nasal [...] history of asthma or tonsillectomy. 01-10-2018 Unclassified (20 sources) Acne - The onset of the acne has been gradual and has been occurring for years. Note for Acne: -Went to [facility] and tried some therapies. They think it is hormone related and suggested eval with PCP for OCP. She is using a special soap from their boutique. Her menses are irregular. 12-27-2017 Unclassified (20 sources) Well child visit #4 - 14 [...] child visit #4 - 13 to 17 years: Is here today for sports physical. Was seen by the eye doctor in the past year. Reviewed by JPK. 06-09-2017 Unclassified (20 sources) Cold Symptoms - Symptoms include nasal [...] Medical history includes seasonal allergies. 01-12-2017 Unclassified (20 sources) Cold Symptoms - Symptoms include nasal [...] includes seasonal allergies. Note for Upper respiratory infection: pinkeye, awoke with drainage from the left eye this morningshe got contacts last week and mom thought that this was from the contacts 10-07-2016 Unclassified (19 sources) Knee pain - The onset of the knee pain has been sudden following an incident not at work and has been occurring for 6 days. Note for Knee pain: -[place] knee cap pop to the side while playing softball. She reduced it and has minimal pain but has some swelling. She is asking aobut strengthening exercises. She is wearing a brace. 06-02-2016 Unclassified (19 sources) [ADDITIONAL REASON] Well child visit #4 [...] and participates in extracurricular activities. 06-02-2016 Unclassified (20 sources) Well child visit #4 - 14 [...] child visit #4 - 13 to 17 years: reviewed by B 06-18-2015 Unclassified (20 sources) Well child visit #3 - 5 [...] child visit #3 - 4 to 12 years: -Sports physical. 05-15-2014 Unclassified (20 sources) Cold Symptoms - Symptoms include nasal [...] upper respiratory infection. Note for Upper respiratory infection: reviewed by [facility] 01-16-2013 Unclassified (20 sources) Breast pain - The breast pain is in the right breast. The onset of the breast pain has been acute and has been occurring in an intermittent pattern for 3 months. The course has been increasing. The breast pain is described as moderate. Note for Breast pain: Says that she noticed it a few [...] had to be surgically removed. 10-27-2012 Unclassified (20 sources) Dizziness - The onset of the [...] dizziness is exacerbated by walking. 03-24-2011 Unclassified (8 sources) Concern - Patient also has a [...] shortness of breath at times. 10-07-2023 Unclassified (8 sources) [ADDITIONAL REASON] UTI - Symptoms include [...] nausea, vomiting or vaginal discharge. Note for UTI: Patient has no history of UTIs and denies any new sexual contacts. 10-07-2023 Unclassified (10 sources) Anxiety - The onset of the [...] tetany, vomiting or weight loss. Note for Anxiety: Patient states that she has been having [...] her anxiety at this time. 05-28-2020 Unclassified (10 sources) [ADDITIONAL REASON] Well adult female - The patient feels well with no complaints. The patient has a balanced diet. The patient exercises daily. The patient sleeps 8 hours per night. Note for Well adult female: Reviewed by Demetra King PA-C. 05-28-2020 Unclassified (5 sources) Well child visit #4 [...] in extracurricular activities. 06-02-2016 Unclassified (5 sources) [ADDITIONAL REASON] Knee pain - The onset of the knee pain has been sudden following an incident not at work and has been occurring for 6 days. Note for Knee pain: -[place] knee cap pop to the side while playing softball. She reduced it and has minimal pain but has some swelling. She is asking aobut strengthening exercises. She is wearing a brace. 06-02-2016 Results Test Name Value Interpretation Reference Range Facility Urgent Care Visit Reporton 1 Urgent Care Visit Report [facility] [address], [address] [place] [address] OFFICE VISIT Date of Service: 11/19/24 MR#: [id number] Acct: [id number] Name: LONI VERA Rep #: [id number] : 2000 Provider: ROLAND Castro Age/Sex: 24/F Location: [facility] Status: Signed Intake Vital Signs 05/28/24 12:44 11/19/24 12:28 Height 5 ft 6 in Weight: 135 lb BMI 21.7 BP 110/74 120/68 Blood Pressure Location Lt brachial Lt brachial Position Sitting Sitting Respiration 16 12 Pulse 111 H 93 Pulse Source Monitor NIBP Temp 97.8 F 98.3 F Temp Source Temporal Oral Pulse Oximetry (%) 99 99 Oxygen Delivery Method room air room air Intake Visit Reasons: DIZZINESS/SINUS CMP/BILAT EAR ACHE Chief Complaint: cough, dizzy, bilat ear pain, fatigue News Director Required: No Is patient in pain?: No Allergies No Known Allergies Allergy (Verified 11/19/24 12:28) Medications ???Medication ???Instructions ???Recorded ???Confirmed ???Type etonogestrel 68 mg subdermal 1 implant subdermal ONCE 11/19/24 11/19/24 History implant (Nexplanon) Is last menstrual period known: No Post menopausal: Yes Patient : No Have you fallen in the past year?: No Nurse's Note: patient is here for dizziness, bilat ear pain, sinus congestion x2 days. Patient stated had ear infection 2 weeks ago. [facility] Medical History (Updated 11/19/24 @ 12:38 by ROLAND Cisneros) Dysfunction of both eustachian tubes Asthma History of recurrent UTIs Left ankle sprain Physical exam, pre-employment Back pain Hay fever Family History Other Diabetes Social History Smoking Status: Never smoker alcohol intake: never HPI HPI Chief Complaint: cough, dizzy, bilat ear pain, fatigue Details: LONI VERA, is a 24 F who presents to the office today for HPI: Patient notes history of recent ear infections for which she was treated with antibiotics. She feels as though symptoms may be returning as over the last several days she notes ear pressure and a sensation of dizziness. She otherwise denies any nausea vomiting or fever. She does note some general nasal congestion. ROS: As noted in HPI Physical Exam: VITALS: Reviewed. GEN: Healthy appearing, well-developed, NAD. PSYCH: AOx3. Normal memory, mood, and affect. HEENT -Eyes: -No discharge or redness; -Ears: Normal bilateral tympanic membranes -Mouth and throat: Moist mucous membranes. NECK: CV: Regular rate and rhythm LUNGS: Normal respiratory effort. Lungs clear bilaterally. SKIN: Warm, well perfused. No skin rashes or abnormal lesions noted. MSK: Normal gait. NEURO: Ambulating with no limitations. Normal muscle strength and tone. No focal deficits. Coding Level of Care Code Off vis,est,level 3 Diagnoses Dysfunction of both eustachian tubes H69.93 Assessment and Plan Assessment and Plan (1) Dysfunction of both eustachian tubes: Status: Acute Plan: Symptoms today appear most consistent with eustachian tube dysfunction. She was instructed to use [id number] Flonase and Zyrtec. She will otherwise follow-up with PCP. Clinical Quality Measures Falls Risk Screening/Assistive Devices Have you fallen in the past year?: No 11/19/24 1239 Date Timo WATKINS Cosigner Signature: Date (if applicable) CC: Normal [facility] Urgent Care Visit Reporton 12-04-2023 Urgent Care Visit Report [facility] [address] , [address] [place] [address] OFFICE VISIT Date of Service: 10/04/24 MR#: [id number] Acct: [id number] Name: LONI VERA Rep #: [id number] : 2000 Provider: NILES Martines Age/Sex: 24/F Location: [facility] Status: Signed Intake Vital Signs 05/28/24 12:44 10/04/24 13:36 Height 5 ft 6 in Weight: 135 lb BMI 21.7 BP 110/74 108/58 L Blood Pressure Location Lt brachial Lt brachial Position Sitting Sitting Respiration 16 14 Pulse 111 H 104 H Pulse Source Monitor NIBP Temp 97.8 F 99.0 F Temp Source Temporal Oral Pulse Oximetry (%) 99 100 Oxygen Delivery Method room air room air Intake Visit Reasons: COUGH, DIZZY Chief Complaint: cough, dizzy, ear pain, fatigue News Director Required: No Is patient in pain?: No Allergies No Known Allergies Allergy (Verified 10/04/24 13:37) Medications ???Medication ???Instructions ???Recorded ???Confirmed ???Type valacyclovir 1 gram tablet 1,000 mg PO TID #21 tabs 05/28/24 05/28/24 Rx azithromycin 250 mg tablet See Rx Instructions PO .COMPLEX #6 10/04/24 10/04/24 Rx tabs methylprednisolone 4 mg tablets in 4 mg PO PER PKG DIR 6 days #21 tabs 10/04/24 10/04/24 Rx a dose pack (Medrol (Nikky)) Is last menstrual period known: No Post menopausal: No Patient : No Have you fallen in the past year?: No Nurse's Note: cough, dizzy, ear pain, fatigue, CP with inspiration, fever x 4-5 days. hx asthma, takes meds prn and has not gotten relief. [facility] Medical History (Updated 10/05/24 @ 06:44 by Nathen CAGE, PA) Asthma History of recurrent UTIs Left ankle sprain Physical exam, pre-employment Back pain Hay fever Family History Other Diabetes Social History Smoking Status: Never smoker alcohol intake: never HPI HPI Chief Complaint: cough, dizzy, ear pain, fatigue Details: LONI VERA, is a 24 F who presents to the office today for complaint of cough, ear pain, fatigue and congestion. Patient denies fever, chills, sweats. No nausea, vomiting, diarrhea. No hemoptysis, shortness of breath or difficulty breathing. No other associated symptoms or alleviating/aggravati ng factors. ROS Const Constitutional: No other (As above) Exam Const General: cooperative and well developed HENMT Head: normal to inspection and atraumatic Ears: hearing grossly normal bilaterally Nose: nasal discharge clear Face and sinus: normal facial exam Mouth: oral mucosae normal Throat: abnormal tonsil bilaterally hypertrophy 1+ Resp Effort Inspection: normal respiratory effort and no audible wheezes Auscultation: Bilateral: Clear to Auscultation Cardio Palpation: normal PMI Rate: regular rate Rhythm: regular rhythm Neuro General: patient alert and CN's II-XI intact bilaterally Psych Appearance: grossly normal Mental Status: mental status grossly normal Results POC ARIANA Covid FluAB PCR POC Ariana Covid PCR Not Detected Last Edit by Annemarie Palumbo on 10/04/24 14:19 POC ARIANA FLU NOT DETECTED FLU A B Last Edit by Annemarie Palumbo on 10/04/24 14:19 Coding Level of Care Code Off vis,est,level 3 Diagnoses Sinusitis J32.9 Contact with or suspected exposure to other viral communicable disease Z20.828 Assessment and Plan Assessment and Plan (1) Sinusitis: Status: Acute (2) Contact with or suspected exposure to other viral communicable disease: Status: Acute Orders: Orders POC Ariana Covid FLUAB PCR 10/04/24 Medications: New azithromycin take 500 mg today (day 1), then 250 mg for 4 days (days 2-5) PO 6 tabs 0RF methylprednisolone (Medrol (Nikky)) 4 mg PO PER PKG DIR 21 tabs 0RF 6 days Plan Azithromycin and Medrol Dosepak as prescribed today. Patient tested negative for COVID and influenza in the office today. Encouraged to get plenty of rest, drink lots of clear liquids, and use Tylenol or Ibuprofen (unless contraindicated) for fever and comfort. Patient also educated on other symptomatic management techniques. To be seen in 7-10 days if no improvement; sooner if worsening of symptoms. Patient advised of potential red flags and when appropriate to report to the ED. Patient verbalized understanding and agreement with all the above. Clinical Quality Measures Falls Risk Screening/Assistive Devices Have you fallen in the past year?: No 10/05/24 0650 Date Nathen Blandon Signature: Date (if applicable) CC: Normal [facility] Urgent Care Visit Reporton 0 05-28-2024 Urgent Care Visit Report [facility] [address], [address] [place] [address] OFFICE VISIT Date of Service: 05/28/24 MR#: [id number] Acct: [id number] Name: LONI VERA Rep #: [id number] : 2000 Provider: NILES Fields Age/Sex: 23/F Location: [facility] Status: Signed Intake Vital Signs 01/13/24 12:17 05/28/24 12:44 Height 5 ft 6 in 5 ft 6 in Weight: 140 lb 135 lb BMI 22.6 21.7 BP 118/78 110/74 Blood Pressure Location Lt brachial Lt brachial Position Sitting Sitting Respiration 18 16 Pulse 92 111 H Pulse Source Monitor Monitor Temp 100.2 F H 97.8 F Temp Source Temporal Temporal Pulse Oximetry (%) 98 99 Oxygen Delivery Method room air room air Intake Visit Reasons: RASH/ POSSIBLE SHINGLES Chief Complaint: RASH POSSIBLE SHINGLES on back LT SIDE News Director Required: No Accompanied by: Self Is patient in pain?: Yes Allergies No Known Allergies Allergy (Unverified 05/28/24 12:45) Medications ???Medication ???Instructions ???Recorded ???Confirmed ???Type methylprednisolone 4 mg tablets in See Rx Instructions PO PER PKG DIR 05/28/24 05/28/24 Rx a dose pack (Medrol (Nikky)) #21 tabs valacyclovir 1 gram tablet 1,000 mg PO TID #21 tabs 05/28/24 05/28/24 Rx PFSH Medical History (Updated 01/13/24 @ 12:21 by Holli Colunga MA) History of recurrent UTIs Left ankle sprain Physical exam, pre-employment Back pain Hay fever Family History Other Diabetes Social History Smoking Status: Never smoker alcohol intake: never HPI HPI Chief Complaint: RASH POSSIBLE SHINGLES on back LT SIDE Details: LONI VERA, is a 23 F who presents to the office today for initial evaluation 3-day history of left mid-back pain with new onset clustered vesicular rash appreciated to the same region approximately 48 hours ago. No complaints of fever, chills, sweats, lightheadedness/dizzi ness, nausea/vomiting, cough, or chest pressure/shortness of breath/dyspnea on exertion. Chickenpox as a child. No close contacts with similar complaints. No cqzg-[id number] products taken to assist. No other associated symptoms and no other alleviating/aggravati ng factors. ROS Const Constitutional: No other (As above) Exam Const General: cooperative, healthy appearing and no acute distress Nutritional Appearance: average body habitus Orientation: alert and awake [facility] Head: normal to inspection Ears: hearing grossly normal bilaterally and external ears normal Nose: external nose normal and no nasal discharge Eyes General: appearance normal, both eyes and all related structures Neck Neck: normal visual inspection and no meningeal signs Chest Chest palpation inspection: normal inspection of the chest Resp Effort Inspection: normal respiratory effort and able to speak in complete sentences Cardio Rate: regular rate Pulses: radial pulses present GI Inspection: normal to inspection Skin General: no rashes or lesions noted (Except clustered vesicular rash to left mid-back) Neuro General: patient alert, patient awake, patient oriented x3 and gait normal Cognition: normal cognition Speech: speech normal Psych Appearance: grossly normal Mental Status: mental status grossly normal Mood: congruent mood Affect: normal affect Speech and Movement: speech and movement normal Attitude: cooperative Diagnoses Shingles B02.9 Assessment and Plan Assessment and Plan (1) Shingles: Status: Acute Plan: Valtrex and Medrol as prescribed today. Supportive measures as instructed today. Declined work excuse upon offering. Follow-up with PCP in 7 to 10 days should symptoms not improve, sooner should symptoms only worsen or any other concerns develop. Patient states acknowledging understanding all the above Coding Level of Care Code Off vis,est,level 3 Assessment and Plan Assessment and Plan Medications: New valacyclovir 1,000 mg PO TID 21 tabs 0RF methylprednisolone (Medrol (Nikky)) PO PER PKG DIR 21 tabs 0RF 05/28/24 1252 Date Francois Blandon Signature: Date (if applicable) CC: Normal [facility] Urine Cultureon 01-14-2024 URC Culture exhibits no growth. Normal [facility] Comment on above: Performed By: #### M 100.2200, L400.0001 #### [facility] [address] [place] [address]. [place], [place], [id number] Amorphous sediment detection in urine sediment by light microscopyOrdered By: Nathen Abad on 01-13-2024 Amorphous sediment LM Ql (Urine sed) 4+ [facility] Basophil percentageOrdered B y: Nathen Abad on 01-13-2024 Basophil percentage 0 SEEN /hpf 0-5 [facility] Bilirubin Test strip Ql (U)O rdered By: Nathen Abad on 01-13-2024 Bilirubin Ql (U) Negative Negative [facility] Culture, urineOrdered By: Prosper Abad on 01-13-2024 Bacteria identified Cx Nom (U) Culture exhibits no growth. [facility] Bacteria identified Cx Nom (U) Culture exhibits no growth. [facility] Ketones Test strip Ql (U)Ord ered By: Nathen Abad on 01-13-2024 Ketones Ql (U) 5 mg/dl Negative [facility] Laboratory - Chemistry and C hemistry - challengeon 01-13-2024 HCG ( test) Ql (U) Negative [facility] Bilirubin Ql (U) Moderate (2+) [facility] Glucose Ql (U) Negative [facility] Ketones Ql (U) Small (15+) [facility] pH (U) 5.0 [pH] [facility] Specific gravity (U) [Rel density] 1.030 [facility] Urobilinogen (U) [Mass/Vol] 0.7372647 mg/dL [facility] Laboratory - Hematology and Cell countson 01-13-2024 Hemoglobin Ql (U) Hemolyzed [facility] Laboratory - Specimen inform ationon 01-13-2024 Clarity (U) Cloudy [facility] Color (U) DARK YELLOW [facility] Laboratory - Urinalysison Nitrite Ql (U) Negative [facility] Protein Ql (U) Trace [facility] Mucus LM Ql (Urine sed)Order ed By: Nathen Abad on 01-13-2024 Mucus Ql (Urine sed) 0 SEEN /hpf [facility] Nitrite Test strip Ql (U)Ord ered By: Nathen Abad on 01-13-2024 Nitrite Ql (U) Negative Negative [facility] No Panel InformationOrdered By: Nathen Abad on 01-13-2024 Urine RBC 0 SEEN /hpf 0-5 [facility] No Panel Informationon 01-13 Urine Leukocytes Positive [facility] Urine Non-Hemolyzed Blood Small [facility] Protein Test strip Ql (U)Ord ered By: Nathen Abad on 01-13-2024 Protein Ql (U) 15 mg/dl Negative [facility] Squamous epithelial cells de tection in urine sediment by light microscopyOrdered By: Nathen Abad on 01-13-2024 Epithelial cells.squamous LM Ql (Urine sed) 0 SEEN /hpf 5-10 [facility] Urgent Care Visit Reporton 0 01-13-2024 Urgent Care Visit Report [facility] [address], [address] [place], [place] [address] OFFICE VISIT Date of Service: 01/13/24 MR#: [id number] Acct: [id number] Name: LONI VERA Rep #: [id number] : 2000 Provider: NILES Martines Age/Sex: 23/F Location: [facility] Status: Signed Intake Vital Signs 11/16/21 12:51 01/13/24 12:17 Height 5 ft 6 in 5 ft 6 in Weight: 140 lb BMI 22.6 BP 118/78 Blood Pressure Location Lt brachial Position Sitting Respiration 18 Pulse 92 Pulse Source Monitor Temp 100.2 F H Temp Source Temporal Pulse Oximetry (%) 98 Oxygen Delivery Method room air Intake Visit Reasons: Urinary tract infection Chief Complaint: UTI SX News Director Required: No Accompanied by: Self Is patient in pain?: Yes Allergies No Known Allergies Allergy (Unverified 01/13/24 12:18) Medications nitrofurantoin monohydrate/macrocrys tals 100 mg capsule 1 cap PO Q12H 7 days #14 caps 01/13/24 [Rx Confirmed 01/13/24] Nurse's Note: Pt states she has had 6 uti in the last 3 months she was given antibiotics but the sx never stopped. Pt states she has or had ovary cysts, she has had kidney stones in the past but she is not sure if she ever passed them. Pt stated she was referred to a urologist but has never received a call from them for an appointment. [facility] Medical History (Updated 01/13/24 @ 12:21 by Holli Colunga MA) Back pain Hay fever History of recurrent UTIs Left ankle sprain Physical exam, pre-employment Family History Other Diabetes Social History Smoking Status: Never smoker alcohol intake: never HPI HPI Chief Complaint: UTI SX Details: LONI VERA, is a 23 F who presents to the office today for complaint of UTI. Patient states that she has dysuria as well as increasing urgency/frequency for the past 3 days. Patient denies fever, chills, sweats. No nausea, vomiting or diarrhea. No abdominal or pelvic pain. No loss of bowel or bladder control. Patient does state having 6 UTIs in the past 3 months and is trying to get into a urologist. No other associated symptoms or alleviating/aggravati ng factors. ROS Const Constitutional: No other (As above) Exam Const General: cooperative and healthy appearing Resp Effort Inspection: normal respiratory effort Auscultation: Bilateral: Clear to Auscultation Cardio Rate: regular rate Rhythm: regular rhythm GI Auscultation: normal bowel sounds General: No CVA tenderness Psych Appearance: grossly normal Mental Status: mental status grossly normal Results POC Urinalysis Dip (Clinic) Office Urine Color DARK YELLOW Last Edit by Holli Colunga MA on 01/13/24 12:24 Office Urine Clarity Cloudy Last Edit by Holli Colunga MA on 01/13/24 12:24 Office Urine Glucose Negative Last Edit by Holli Colunga MA on 01/13/24 12:24 Office Urine Ketones Small (15+) Last Edit by Holli Colunga MA on 01/13/24 12:24 Off Ur Spec [place] 1.030 Last Edit by Holli Colunga MA on 01/13/24 12:24 Office Urine pH 5.0 Last Edit by Holli Colunga MA on 01/13/24 12:24 Office Urine Bilirubin Moderate (2+) Last Edit by Holli Colunga MA on 01/13/24 12:24 Office Urine Urobilinogen 0.2 mg/dL Last Edit by Holli Colunga MA on 01/13/24 12:24 Office Urine Blood Hemolyzed Last Edit by Holli Colunga MA on 01/13/24 12:24 Office Urine Blood Hemolyzed Small Last Edit by Holli Colunga MA on 01/13/24 12:24 Office Urine Protein Trace Last Edit by Holli Colunga MA on 01/13/24 12:24 Office Urine Nitrate Negative Last Edit by Holli Colunga MA on 01/13/24 12:24 Off Ur Leukocytes Positive Last Edit by Holli Colunga MA on 02/23/24 12:24 POC Urine Office , Urine Negative Last Edit by Holli Colunga MA on 01/13/24 12:24 Coding Level of Care Code Off vis,est,level 3 Diagnoses Urinary tract infection N39.0 Assessment and Plan Assessment and Plan (1) Urinary tract infection: Orders: Orders Urinalysis, Complete Today R30.0 - Dysuria Culture, Urine Today R30.0 - Dysuria POC Urinalysis Dip (Clinic) Today R30.0 - Dysuria POC Urine Today R30.0 - Dysuria Medications: New nitrofurantoin monohyd/m-cryst 100 mg administer with a meal/food; swallow whole; do not open, crush, dissolve , or chew 1 cap PO Q12H 14 caps 0RF 7 days Plan Macrobid as prescribed today. Encouraged to get plenty of rest, drink lots of clear liquids, and use Tylenol or Ibuprofen (unless contraindicated) for fever and comfort. Patient also educated on other symptomatic management techniques. To be seen in 7-10 days if no improvement; sooner if worsening of symptoms. Patient advised of potenti (more content not included)... Normal [facility] Urinalysis, Completeon 01-13 AMORPHOUS 4+ Normal [facility] Comment on above: Order Comment: ÁNGEL CASASOR TO SPECIFY Performed By: #### M 100.2200, L400.0001 #### [facility] [address] [facility] [place], [address] BACTERIA 0 SEEN Normal None Seen [facility] Comment on above: Order Comment: ÁNGEL CTOR TO SPECIFY Performed By: #### M 100.2200, L400.0001 #### [facility] [address] [facility] [place], [address] EPI,SQUAMOUS 0 SEEN Normal 5-10 [facility] Comment on above: Order Comment: ÁNGEL CTOR TO SPECIFY Performed By: #### M 100.2200, L400.0001 #### [facility] [address] [facility] [place], [address] Mucus Ql (Urine sed) 0 SEEN Normal [facility] Comment on above: Order Comment: ÁNGEL CTOR TO SPECIFY Performed By: #### M 100.2200, L400.0001 #### [facility] [address] [place], [address] RBC 0 SEEN Normal 0-5 [facility] Comment on above: Order Comment: ÁNGEL CTOR TO SPECIFY Performed By: #### M 100.2200, L400.0001 #### [facility] [address] [place], [address] WBC 0 SEEN Normal 0-5 [facility] Comment on above: Order Comment: ÁNGEL CTOR TO SPECIFY Performed By: #### M 100.2200, L400.0001 #### [facility] [address] [place], [address] Urine blood detectionOrdered By: Nathen Abad on 01-13-2024 RBC Ql (U) 25 /ul Negative [facility] Urine clarityOrdered By: Mike Abad on 01-13-2024 Clarity (U) Turbid Clear [facility] Urine color determinationOrd ered By: Nathen Abad on 01-13-2024 Color (U) Yellow Yellow [facility] Urine glucose detectionOrder ed By: Nathen Abad on 01-13-2024 Glucose Ql (U) Normal mg/dl Normal [facility] Urine leukocyte esterase det ection by dipstickOrdered By: Nathen Abad on 01-13-2024 Leukocyte esterase Test strip Ql (U) Negative Negative [facility] Urine pHOrdered By: Nathen clark on 01-13-2024 pH (U) 5.0 [pH] 5.0 - 8.0 [facility] Urine sediment bacteria coun t by microscopy (number/high power field)Ordered By: Nathen Abad on 01-13-2024 Bacteria LM.HPF (Urine sed) [#/Area] 0 /[HPF] None Seen [facility] Urine specific gravity measu rementOrdered By: Nathen Abad on 01-13-2024 Specific gravity (U) [Rel density] 1.025 1.002-1.030 [facility] Urine urobilinogen measureme ntOrdered By: Nathen Abad on 01-13-2024 Urobilinogen Ql (U) Normal mg/dl Normal [facility] Abdomen/Pelvis without Conto n 12-30-2023 Abdomen/Pelvis without Cont [facility] Imaging Services [address] [place] [address] Abdomen/Pelvis without Cont MR#: [id number] Acct: [id number] Name: LONI VERA Rep #: [id number] : 2000 F 23 From: Sahara Levy MD PCP: Dr. Ildefonso Rodriguez MD Status: REG CLI Study: Abdomen/Pelvis without Cont Date of Exam: 08/14 Exam# [id number] Ordering Dr: Rae Avelar [id number] STUDY: CT ABDOMEN AND PELVIS WITHOUT CONTRAST REASON FOR EXAM: Female, 23 years old. Kidney stone RADIATION DOSAGE (If Supplied By Facility): CTDIvol = ( 6.25 ) mGy, DLP = ( 281.22 ) mGycm TECHNIQUE: Transaxial images were obtained from the dome of the diaphragm to the symphysis pubis without oral contrast, and without intravenous contrast. Sagittal and coronal images were reconstructed. Individualized dose optimization techniques were used for this CT. COMPARISON: None. FINDINGS: The visualized lung bases are unremarkable. The visualized portions of the heart are within normal limits. Normal liver. Normal gallbladder and extrahepatic biliary system. Normal spleen. Normal pancreas. Normal bilateral adrenal glands. Normal right kidney. Normal left kidney. Normal visualized stomach. Normal small intestine. Normal colon. The appendix is visualized and appears normal. Normal abdominal aorta. Normal inferior vena cava. Normal retroperitoneum. Normal urinary bladder. Normal visualized uterus. There is a left-sided ovarian cyst measuring 3.1 x 3.2 cm. Normal abdominal wall. Normal osseous structures. CT/Abdomen/Pelvis without Cont IMPRESSION: Normal bilateral kidneys with no intrarenal stone or hydronephrosis. Normal abdominal viscera. No acute appendicitis or bowel obstruction. Left-sided ovarian cyst measuring 3.2 cm, remainder of the pelvic structures unremarkable. Electronically Signed: Sahara Levy MD at 2:46 EST , CC: Dr. Ildefonso Rodriguez MD; NILES Valentino D[employer] Ye[employer] Supervisor: Signed Normal [facility] Pulmonary Function Report Co mpon 12-20-2023 Pulmonary Function Report Comp [facility] Services/Neurology [address] [place] [address] MR#: [id number] Acct: [id number] Name: LONI VERA Rep #: [id number] : 2000 23 From: Tyree Phillips MD Referring Dr: Rae Avelar Status: REG CLI Location: [facility] Date: 12/19/23 Sex: F C COMPLETE PULMONARY FUNCTION TEST INTERPRETATION Brief HPI: Patient is a 23-year-old female, currently under the care of Rae Avelar, who presents to [facility] for complete pulmonary function tests secondary to diagnosis of dyspnea. Respiratory therapist reports good effort and reproducible results. Interpretation: Forced expiration spirometry shows no large airways obstructive ventilatory defect with an FEV1 of 119% predicted. There is no significant bronchodilator response by strict ATS criteria. Spirograms are of fair quality and show exhalation for only about 5 seconds, likely underestimating FVC. The respiratory flow volume loop shows a normal pattern. Lung volumes by body plethysmography show an elevated total lung capacity at 6.92 L, 131% predicted. All other lung volumes are increased proportionally. Diffusion capacity by carbon monoxide is normal at 105% predicted. The airway resistance is normal. No previous pulmonary function tests were available for review. Impression: Grossly normal pulmonary function test. Can consider bronchoprovocation study if asthma is suspected 12/20/23 0556 Date Tyree Phillips MD CC: Dr. Tyree Phillips MD; Dr. Ildefonso Rodriguez MD; NILES Valentino Date Dictated: 12/20/23553 Date Transcribed: 12/20/23553 Dried Ye[employer] Supervisor: RADHA Signed Normal [facility] Absolute lymphocyte countOrd ered By: Rae Avelar on 12-15-2023 Lymphocytes Auto (Unsp spec) [#/Vol] 1.88 10*3/uL 0.83-4.51 [facility] Automated blood erythrocyte count (number/volume)Ordered By: Rae Avelar on 12-15-2023 RBC (Bld) [#/Vol] 4.85 10*6/uL Normal 4.2 - 5.4 {M/mm3} [facility] Automated blood hematocrit ( percentage)Ordered By: Rae Avelar on 12-15-2023 Hematocrit (Bld) [Volume fraction] 40.9 % Normal 37 - 47 [facility] Automated lymphocyte count a s percentage of total leukocytesOrdered By: Rae Avelar on 12-15-2023 Lymphocytes/100 WBC Auto (Unsp spec) 36.1 % 19-41 [facility] Basophil percentageOrdered B y: Rae Avelar on 12-15-2023 Basophils/100 WBC (Bld) 0.6 % Normal 0 - 1 [facility] Bilirubin [Mass/Vol] 0.50 mg/dL Normal 0.20 - 1.00 mg/dL [facility] Comment on above: For patients on eltr ombopag therapy, use of Dimension [place] TBIL is not recommended. Chloride [Moles/Vol] 107 mmol/L Normal 98 - 10 7 mmol/L [facility] Eosinophils/100 WBC (Bld) 5.6 % Abnormal 0 - 5 [facility] Glucose [Mass/Vol] 86 mg/dL Normal 74 - 106 mg/dL [facility] Hemoglobin (Bld) [Mass/Vol] 13.2 g/dL Normal 12.0 - 15.0 g/dL [facility] Monocytes/100 WBC (Bld) 6.9 % Normal 0 - 10 [facility] Neutrophils (Bld) [#/Vol] 2.6 10*3/uL 2.0-7.7 [facility] Neutrophils/100 WBC (Bld) 50.6 % Normal 47 - 70 [facility] Potassium [Moles/Vol] 4.0 mmol/L Normal 3.5 - 5.1 mmol/L [facility] Protein [Mass/Vol] 7.7 g/dL 6.4-8.2 [facility] Sodium [Moles/Vol] 137 mmol/L Normal 136 - 145 mmol/L [facility] WBC (Bld) [#/Vol] 5.2 10*3/uL Normal 4.4 - 11.0 K/mm3 [facility] CBC W/Diff, Automatedon 11-22 Absolute Lymph 1.88 X10 3/uL Normal 0.83-4.51 [facility] Comment on above: Performed By: #### L 501.9520, L100.0100, L500.4050 #### [facility] [address] [place], [address] Absolute Neut 2.6 X10 3/uL Normal 2.0-7.7 [facility] Comment on above: Performed By: #### L 501.9520, L100.0100, L500.4050 #### [facility] [address] [place], [address] Basophils/100 WBC (Bld) 0.6 % Normal 0-1 [facility] Comment on above: Performed By: #### L 501.9520, L100.0100, L500.4050 #### [facility] [address] [place], [address] Eosinophils/100 WBC (Bld) 5.6 % High 0-5 [facility] Comment on above: Performed By: #### L 501.9520, L100.0100, L500.4050 #### [facility] [address] [place], [address] Erythrocyte distribution width (RBC) [Ratio] 12.4 % Normal 11.6-14.6 [facility] Comment on above: Performed By: #### L 501.9520, L100.0100, L500.4050 #### [facility] [address] [place], [address] Hematocrit (Bld) [Volume fraction] 40.9 % Normal 37-47 [facility] Comment on above: Performed By: #### L 501.9520, L100.0100, L500.4050 #### [facility] [address] [place], [address] Hemoglobin (Bld) [Mass/Vol] 13.2 g/dL Normal 12.0-15.0 [facility] Comment on above: Performed By: #### L 501.9520, L100.0100, L500.4050 #### [facility] [address] [place], [address] IG% 0.200 Normal 0.0 - 0.9 [facility]; [facility] Comment on above: Result Comment: IG% - Immature Granulocytes (promyelocytes, myelocytes and metamyelocytes) > 1% indicates that a LEFT SHIFT is Present. Performed By: #### L 501.9520, L100.0100, L500.4050 #### [facility] [address] [place], [address] Lymphocytes/100 WBC (Bld) 36.1 % Normal 19 - 41 [facility]; [facility] Comment on above: Performed By: #### L 501.9520, L100.0100, L500.4050 #### [facility] [address] [place], [address] MCH (RBC) [Entitic mass] 27.2 pg Normal 27.0-32.0 [facility] Comment on above: Performed By: #### L 501.9520, L100.0100, L500.4050 #### [facility] [address] [place], [address] MCHC (RBC) [Mass/Vol] 32.3 g/dL Normal 32-36 [facility] Comment on above: Performed By: #### L 501.9520, L100.0100, L500.4050 #### [facility] [address] [place], [address] MCV (RBC) [Entitic vol] 84.3 fL Normal 81-99 [facility] Comment on above: Performed By: #### L 501.9520, L100.0100, L500.4050 #### [facility] [address] [place], [address] Monocytes/100 WBC (Bld) 6.9 % Normal 0-10 [facility] Comment on above: Performed By: #### L 501.9520, L100.0100, L500.4050 #### [facility] [address] [place], [address] Neutrophils/100 WBC (Bld) 50.6 % Normal 47-70 [facility] Comment on above: Performed By: #### L 501.9520, L100.0100, L500.4050 #### [facility] [address] [place], [address] Nucleated RBC (Bld) [#/Vol] 0 10*3/uL Normal 0 - 5 [facility]. Comment on above: Performed By: #### L 501.9520, L100.0100, L500.4050 #### [facility] [address] [place], [address] Platelet mean volume (Bld) [Entitic vol] 10.5 fL Normal 6.2-12.0 [facility] Comment on above: Performed By: #### L 501.9520, L100.0100, L500.4050 #### [facility] [address] [place], [address] Platelets (Bld) [#/Vol] 206 10*3/uL Normal 150-450 [facility] Comment on above: Performed By: #### L 501.9520, L100.0100, L500.4050 #### [facility] [address] [place], [address] RBC (Bld) [#/Vol] 4.85 10*6/uL Normal 4.2-5.4 [facility] Comment on above: Performed By: #### L 501.9520, L100.0100, L500.4050 #### [facility] [address] [place], [address] RDW SD 37.4 fL Normal 35.1 - 43.9 fL [facility] Comment on above: Performed By: #### L 501.9520, L100.0100, L500.4050 #### [facility] [address] [place], [address] WBC (Bld) [#/Vol] 5.2 10*3/uL Normal 4.4-11.0 [facility] Comment on above: Performed By: #### L 501.9520, L100.0100, L500.4050 #### [facility] [address] [place], [address] Chest PA and Lateralon 12-15 Chest PA and Lateral [facility] Imaging Services [address] [place] [address] Chest PA and Lateral MR#: [id number] Acct: [id number] Name: LONI VERA Rep #: [id number] : 2000 F 23 From: Sen marquez MD PCP: Dr. Ildefonso Rodriguez MD Status: REG CLI Study: Chest PA and Lateral Date of Exam: 12/15/23 Exam# [id number] Ordering Dr: Rae Avelar [place] [id number] INDICATION: sob on exertion EXAMINATION/TECHNIQUE : X-RAY - XR Chest 2 Views COMPARISON: None. FINDINGS: Mild hyperinflation. Lungs are otherwise clear. The cardiomediastinal silhouette is unremarkable. No pleural effusion or pneumothorax. No acute osseous abnormalities. RAD/Chest PA and Lateral IMPRESSION: Mild hyperinflation which can be seen in asthma. Electronically Signed: Sen Brooks MD at 22:28 EST , CC: Dr. Ildefonso Rodriguez MD; NILES Valentino Dried Ye[employer] Supervisor: Signed Normal [facility] Comprehensive Metabolic Prof ilon 12-15-2023 Albumin [Mass/Vol] 4.2 g/dL Normal 3.2 - 5.0 g/dL [facility]. Comment on above: Order Comment: FT4 W ITH ABNORMAL RESULT Performed By: #### L 501.9520, L100.0100, L500.4050 #### [facility] [address] [place], [address] Albumin/Globulin [Mass ratio] 1.2 {ratio} Normal 0.9-2.4 [facility] Comment on above: Order Comment: FT4 W ITH ABNORMAL RESULT Performed By: #### L 501.9520, L100.0100, L500.4050 #### [facility] [address] [place], [address] ALK P 84 U/L Normal 45 - 117 U/L [facility]. Comment on above: Order Comment: FT4 W ITH ABNORMAL RESULT Performed By: #### L 501.9520, L100.0100, L500.4050 #### [facility] [address] [place], [address] ALT [Catalytic activity/Vol] 23 U/L Normal 13-56 [facility] Comment on above: Order Comment: FT4 W ITH ABNORMAL RESULT Performed By: #### L 501.9520, L100.0100, L500.4050 #### [facility] [address] [place], [address] AST [Catalytic activity/Vol] 13 U/L Abnormal 15 - 37 U/L [facility]; [facility] Comment on above: Order Comment: FT4 W ITH ABNORMAL RESULT Performed By: #### L 501.9520, L100.0100, L500.4050 #### [facility] [address] [place], [address] Bilirubin [Mass/Vol] 0.50 mg/dL Normal 0.20-1.00 [facility] Comment on above: Order Comment: FT4 W ITH ABNORMAL RESULT Result Comment: For patients on eltrombopag therapy, use of [employer] [place] TBIL is not recommended. Performed By: #### L 501.9520, L100.0100, L500.4050 #### [facility] [address] [place], [address] BUN/CRE 11.2 RATIO Normal 10-20 [facility] Comment on above: Order Comment: FT4 W ITH ABNORMAL RESULT Performed By: #### L 501.9520, L100.0100, L500.4050 #### [facility] [address] [place], [address] CA,Total 9.5 mg/dL Normal 8.5-10.1 [facility] Comment on above: Order Comment: FT4 W ITH ABNORMAL RESULT Performed By: #### L 501.9520, L100.0100, L500.4050 #### [facility] [address] [place], [address] Chloride [Moles/Vol] 107 mmol/L Normal 98-107 [facility] Comment on above: Order Comment: FT4 W ITH ABNORMAL RESULT Performed By: #### L 501.9520, L100.0100, L500.4050 #### [facility] [address] [place], [address] CO2 [Moles/Vol] 24.0 mmol/L Normal 21.0-32.0 [facility] Comment on above: Order Comment: FT4 W ITH ABNORMAL RESULT Performed By: #### L 501.9520, L100.0100, L500.4050 #### [facility] [address] [place], [address] Creatinine [Mass/Vol] 0.98 mg/dL Normal 0.55-1.02 [facility] Comment on above: Order Comment: FT4 W ITH ABNORMAL RESULT Result Comment: The validity of the calculated GFR GFRAA in patients over 70 years has not been determined. Clinical correlation is essential. Performed By: #### L 501.9520, L100.0100, L500.4050 #### [facility] [address] [place], [address] EST GFR - AA 91 mL/min Normal [facility] IR [employer].; [employer] [facility]. Comment on above: Order Comment: FT4 W ITH ABNORMAL RESULT Result Comment: Afri can [place] Island[place] GFR Calc Performed By: #### L 501.9520, L100.0100, L500.4050 #### [facility] [address] [place], [address] GAP 6 Normal 5 - 15 [facility].; [facility]. Comment on above: Order Comment: FT4 W ITH ABNORMAL RESULT Performed By: #### L 501.9520, L100.0100, L500.4050 #### [facility] [address] [place], [address] GFR/1.73 sq M.predicted among non-blacks MDRD (S/P/Bld) [Vol rate/Area] 75 mL/min/{1.73_m2} Normal [employer].; [facility]. Comment on above: Order Comment: FT4 W ITH ABNORMAL RESULT Result Comment: Non- GFR Calc Performed By: #### L 501.9520, L100.0100, L500.4050 #### [facility] [address] [place], [address] Globulin (S) [Mass/Vol] 3.5 g/dL Normal 2.2-4.2 [facility] Comment on above: Order Comment: FT4 W ITH ABNORMAL RESULT Performed By: #### L 501.9520, L100.0100, L500.4050 #### [facility] [address] [place], [address] Glucose [Mass/Vol] 86 mg/dL Normal 74-106 [facility] Comment on above: Order Comment: FT4 W ITH ABNORMAL RESULT Performed By: #### L 501.9520, L100.0100, L500.4050 #### [facility] [address] [place], [address] Potassium [Moles/Vol] 4.0 mmol/L Normal 3.5-5.1 [facility] Comment on above: Order Comment: FT4 W ITH ABNORMAL RESULT Performed By: #### L 501.9520, L100.0100, L500.4050 #### [facility] [address] [place], [address] Sodium [Moles/Vol] 137 mmol/L Normal 136-145 [facility] Comment on above: Order Comment: FT4 W ITH ABNORMAL RESULT Performed By: #### L 501.9520, L100.0100, L500.4050 #### [facility] [address] [place], [address] T PROT 7.7 g/dL Normal 6.4 - 8.2 g/dL [facility].; [facility]. Comment on above: Order Comment: FT4 W ITH ABNORMAL RESULT Performed By: #### L 501.9520, L100.0100, L500.4050 #### [facility] [address] [place], [place], [address] Urea nitrogen [Mass/Vol] 11 mg/dL Normal 7-18 [facility] Comment on above: Order Comment: FT4 W ITH ABNORMAL RESULT Performed By: #### L 501.9520, L100.0100, L500.4050 #### [facility] [address] [place], [address] Determination of erythrocyte mean corpuscular volume (MCV)Ordered By: Rae Avelar on 12-15-2023 MCV (RBC) [Entitic vol] 84.3 fL Normal 81 - 99 fL [facility] Erythrocyte distribution wid th ratioOrdered By: Rae Avelar on 12-15-2023 Erythrocyte distribution width (RBC) [Ratio] 12.4 % Normal 11.6 - 14.6 [facility] Erythrocyte distribution wid th standard deviationOrdered By: Rae Avelar on 12-15-2023 Erythrocyte distribution width (RBC) [Entitic vol] 37.4 fL 35.1-43.9 [facility] Immature granulocytes/100 WB C Auto (Bld)Ordered By: Rae Avelar on 12-15-2023 Immature granulocytes/100 WBC (Bld) 0.200 % 0.0-0.9 [facility] Comment on above: IG% - Immature Granu locytes (promyelocytes, myelocytes and metamyelocytes) > 1% indicates that a LEFT SHIFT is Present. Laboratory - Chemistry and C hemistry - challengeon 12-15-2023 Magnesium [Mass/Vol] 9.5 mg/dL Normal 8.5 - 1 0.1 mg/dL [facility] Laboratory - Chemistry and C hemistry - challengeOrdered By: Rae Avelar on 12-15-2023 Albumin/Globulin [Mass ratio] 1.2 {ratio} Normal 0.9 - 2.4 {RATIO} [facility] ALP [Catalytic activity/Vol] 84 U/L 45-117 [facility] ALT [Catalytic activity/Vol] 23 U/L Normal 13 - 56 U/L [facility] CO2 [Moles/Vol] 24.0 mmol/L Normal 21.0 - 32.0 mmol/L [facility] Globulin (S) [Mass/Vol] 3.5 g/dL Normal 2.2 - 4.2 g/dL [facility] Urea nitrogen/Creatinine [Mass ratio] 11.2 mg/mg 10-20 [facility] - Hematology and Cell countsOrdered By: Rae Avelar on 12-15-2023 MCH (RBC) [Entitic mass] 27.2 pg Normal 27.0 - 32.0 pg [facility] MCHC (RBC) [Mass/Vol] 32.3 g/dL Normal 32 - 36 g/dL [facility] Nucleated RBC/100 WBC (Bld) [Ratio] 0 % 0-5 [facility] Platelets (Bld) [#/Vol] 206 10*3/uL Normal 150 - 450 K/mm3 [facility] Mean platelet volume determi nationOrdered By: Rae Avelar on 12-15-2023 Platelet mean volume (Bld) [Entitic vol] 10.5 fL Normal 6.2 - 12.0 fL [facility] No Panel Informationon 12-15 Absolute Lymph 1.88 {X10_3/uL} Normal 0.83 - 4.5 1 {X10_3/uL} [employer] [facility] HospitalCom[facility].; [employer]. Absolute Neut 2.6 {X10_3/uL} Normal 2.0 - 7.7 {X10_3/uL} [employer].; [employer]. BUN/CRE 11.2 {RATIO} Normal 10 - 20 {RATIO} [employer].; [employer] TSH 1.53 {uIU/mL} Normal 0.358 - 3.74 {uIU/mL} [employer].; [employer] No Panel InformationOrdered By: Rae Avelar on 12-15-2023 Estimated GFR (MDRD) Amer 91 mL/min >60 [facility] Comment on above: GFR Calc Estimated GFR (MDRD) Non-Af Amer 75 mL/min >60 [facility] Comment on above: Non- GFR Calc Serum or plasma calcium donald urement (mass/volume)Ordered By: Rae Avelar on 12-15-2023 Calcium [Mass/Vol] 9.5 mg/dL 8.5-10.1 [facility] Serum or plasma creatinine m easurement (mass/volume)Ordered By: Rae Avelar on 12-15-2023 Creatinine [Mass/Vol] 0.98 mg/dL Normal 0.55 - 1.02 mg/dL [facility] Comment on above: The validity of the calculated GFR & GFRAA in patients over 70 years has not been determined. Clinical correlation is essential. Serum or plasma thyroid stim ulating hormone (TSH) measurement (units/volume)Ordered By: Rae Avelar on 12-15-2023 TSH Qn 1.53 uIU/mL 0.358-3.74 [facility] Serum or plasma urea nitroge n measurement (mass/volume)Ordered By: Raearmida Avelar on 12-15-2023 Urea nitrogen [Mass/Vol] 11 mg/dL Normal 7 - 18 mg/dL [facility] Thin prep Papanicolaou smear with manual screeningOrdered By: Rae Avelar on 12-15-2023 Thin prep Papanicolaou smear with manual screening 4.2 g/dL 3.2-5.0 [facility] Thin prep Papanicolaou smear with manual screening 13 U/L 15-37 [facility] Thin prep Papanicolaou smear with manual screening 6 5-15 [facility] Thyroid Stim Hormone (TSH)on 12-15-2023 TSH 1.53 uIU/mL Normal 0.358-3.74 [facility] Comment on above: Order Comment: FT4 W ITH ABNORMAL RESULT Performed By: #### L 501.9520, L100.0100, L500.4050 #### [facility] [address] [place], [place], [address] Urine Cultureon 12-13-2023 URC Mixed Gram Positive Organisms [place] Count 25,000-50,000 MIXC Mixed contaminants. Submit a new specimen if indicated. Normal [facility] Comment on above: Performed By: #### M 100.0, L4.2010 ####[facility] [address] [place], [address] Bilirubin Test strip Ql (U)O rdered By: Rae Varnerer on 12-12-2023 Bilirubin Ql (U) 3 mg/dL Negative [facility] Comment on above: COLOR OF URINE MAY A FFECT DIPSTICK RESULTS. Culture, urineOrdered By: nikolai Avelar on 12-12-2023 Bacteria identified Cx Nom (U) Positive [facility] Bacteria identified Cx Nom (U) Positive [facility] Ketones Test strip Ql (U)Ord ered By: Rae Valentino on 12-12-2023 Ketones Ql (U) Negative Negative [facility] Laboratory - Chemistry and C hemistry - challengeon 12-12-2023 Magnesium [Mass/Vol] 30 mg/dL Abnormal [facility]; [employer] [facility] Work Phone: Magnesium [Mass/Vol] 8 mg/dL Abnormal [facility]; [employer] [facility] Work Phone: Nitrite ur dipstickOrdered B y: Rae Avelar on 12-12-2023 Nitrite Ql (U) Positive Abnormal [facility] No Panel Informationon 12-12 URC See Note Normal [employer] [facility]; [employer] [facility] Protein Test strip Ql (U)Ord ered By: Rae Avelar on 12-12-2023 Protein Ql (U) 30 mg/dl Negative [facility] Urinalysis, Routine (Dipstic k)on 12-12-2023 BILIRUBIN URINE 3 mg/dL Abnormal [facility] Comment on above: Order Comment: CLEAN CATCH Result Comment: COLO R OF URINE MAY AFFECT DIPSTICK RESULTS. Performed By: #### M 100.2200, L4.2010 ####[facility] [address] [place], [address] Clarity (U) Sl. Cloudy Normal Clear [facility] Comment on above: Order Comment: CLEAN CATCH Performed By: #### M 100.2200, L400.2010 ####[facility] [address] [place], [address] Color (U) Yellow Normal Yellow [facility] Comment on above: Order Comment: CLEAN CATCH Performed By: #### M , L4 ####[facility] [address] [place], [address] GLUCOSE, UR Normal Normal [facility] Comment on above: Order Comment: CLEAN CATCH Performed By: #### M , L4 ####[facility] [address] [place], [address] KETONE UR Negative Normal [facility] Comment on above: Order Comment: CLEAN CATCH Performed By: #### M , L4 ####[facility] [address] [place], [address] LEUK ESTERASE 500 /ul Abnormal [facility] Comment on above: Order Comment: CLEAN CATCH Performed By: #### M , L4 ####[facility] [address] [place], [address] Nitrite Ql (U) Positive Abnormal Negative [facility] Comment on above: Order Comment: CLEAN CATCH Performed By: #### M , L4 ####[facility] [address] [place], [address] OCCULT BLOOD-UR 25 /ul Abnormal [facility] Comment on above: Order Comment: CLEAN CATCH Performed By: #### M , L4 ####[facility] [address] [place], [address] pH UR 5.0 Normal 5.0 - 8.0 [facility] Comment on above: Order Comment: CLEAN CATCH Performed By: #### M , L4 ####[facility] [address] [place], [address] PROT DIPSTX 30 mg/dl Abnormal Negative [facility] Comment on above: Order Comment: CLEAN CATCH Performed By: #### M 100.2200, L400.2010 ####[facility] [address] [place], [address] SP.GR. DIPSTX 1.020 Normal 1.002 - 1.030 [facility] Comment on above: Order Comment: CLEAN CATCH Performed By: #### M 100.2200, L4.2010 ####[facility] [address] [place], [address] UROBILI 8 mg/dl Abnormal Normal [facility] Comment on above: Order Comment: CLEAN CATCH Performed By: #### M 100.0, L4.2010 ####[facility] [address] [place], [address] Urine blood detectionOrdered By: Rae Avelar on 12-12-2023 RBC Ql (U) 25 /ul Negative [facility] Urine clarityOrdered By: Sharona Avelar on 12-12-2023 Clarity (U) Sl. Cloudy Normal [facility] Urine color determinationOrd ered By: Rae Avelar on 12-12-2023 Color (U) Yellow Normal [facility] Urine glucose detectionOrder ed By: Rae Avelar on 12-12-2023 Glucose Ql (U) Normal mg/dl Normal [facility] Urine leukocyte esterase det ection by dipstickOrdered By: Rae Avelar on 12-12-2023 Leukocyte esterase Test strip Ql (U) 500 /ul Negative [facility] Urine pHOrdered By: Rae Avelar on 12-12-2023 pH (U) 5.0 [pH] 5.0 - 8.0 [facility] Urine specific gravity measu rementOrdered By: Rae Avelar on 12-12-2023 Specific gravity (U) [Rel density] 1.020 1.002-1.030 [facility] Urine urobilinogen measureme ntOrdered By: Rae Avelar on 12-12-2023 Urobilinogen Ql (U) 8 mg/dl Normal [facility] Laboratory - Chemistry and C hemistry - challengeon 11-18-2023 Bilirubin Ql (U) Negative Normal [facility] [employer].; [employer]. Ketones Ql (U) Negative Normal [facility].; [employer], [employer]. pH (U) 5.5 [pH] Normal [employer].; [employer]. Specific gravity (U) [Rel density] 1.015 Normal [employer].; [employer]. Urobilinogen Qn (U) 0.2 mg/dL Normal [facility] [employer].; [employer]. Laboratory - Hematology and Cell countson 11-18-2023 Hemoglobin Ql (U) Negative Normal [facility] [employer]. Laboratory - Specimen inform ationon 11-18-2023 Appearance (U) clear Normal [facility].; [employer]. Color (U) yellow Normal [employer].; [employer]. Laboratory - Urinalysison Glucose Test strip (U) [Mass/Vol] Negative Normal [employer].; [employer]. Leukocyte esterase Test strip Ql (U) Negative Normal [facility] [employer].; [employer], [employer]. Nitrite Ql (U) Negative Normal [facility].; [employer]. Protein Ql (U) Negative Normal [facility].; [employer]. No Panel Informationon 11-18 [id number] SEE NOTE Normal [employer].; [employer]. CHLAMYDIA TRACHOMATIS RNA, TMA, UROGENITAL Not detected Normal [facility] [employer].; [employer]. CULTURE, URINE, ROUTINE SEE NOTE Abnormal H [facility] [employer].; [employer], [employer]. NEISSERIA GONORRHOEAE RNA, TMA, UROGENITAL Not detected Normal [facility] CenterObserveIT.; [employer]. CULTURE, URINE, ROUTINEon CULTURE, URINE, ROUTINE SEE NOTE Abnormal [facility] Comment on above: Result Comment: CULTURE, URINE, ROUTINE Micro Number: [id number] Test Status: Final Specimen Source: Urine Specimen Quality: Adequate Result: Greater than 100,000 CFU/mL of Staphylococcus saprophyticus The Clinical Laboratory Standards [place] (CLSI) does not advise routine susceptibility testing of urine isolates of S. saprophyticus because infections respond to urinary concentrations of agents commonly used to treat acute, uncomplicated UTI such as nitrofurantoin, trimethoprim-sulfamethoxazole or a fluoroquinolone. Performed By: #### 3 95 #### [facility] [address], [address] [place] [address] Continuous Improvement Engineer: Chris Daly MD Laboratory - Chemistry and C hemistry - challengeon 11-04-2023 Bilirubin Ql (U) Negative Normal [facility] HospitalIR Diagn[facility].; [employer]. Ketones Ql (U) Negative Normal [facility].; [employer]. pH (U) 7.0 [pH] Normal [employer].; [employer]. Specific gravity (U) [Rel density] 1.025 Normal [employer].; [employer]. Urobilinogen Qn (U) 1.0 mg/dL Normal [facility] [employer].; [employer]. Laboratory - Hematology and Cell countson 11-04-2023 Hemoglobin Ql (U) moderate Abnormal [employer].; [employer]. Laboratory - Specimen inform ationon 11-04-2023 Appearance (U) cloudy Abnormal [facility]View.; [employer]. Color (U) Dark Yellow Normal [employer].; [employer]. Laboratory - Urinalysison Glucose Test strip (U) [Mass/Vol] 100 mg/dL Normal [employer].; [employer]. Leukocyte esterase Test strip Ql (U) small Abnormal [employer].; [employer]. Nitrite Ql (U) Positive Abnormal [facility].; [employer]. Protein Ql (U) >=300 Normal [facility]o [facility].; [employer]. No Panel Informationon 11-04 CULTURE, URINE, ROUTINE SEE NOTE Abnormal H [facility] madvertise.; [employer]. CULTURE, URINE, ROUTINEon CULTURE, URINE, ROUTINE SEE NOTE Abnormal [facility] Comment on above: Result Comment: CULTURE, URINE, ROUTINE Micro Number: [id number] Test Status: Final Specimen Source: Urine Specimen Quality: Adequate Result: Greater than 100,000 CFU/mL of Staphylococcus saprophyticus The Clinical Laboratory Standards [place] (CLSI) does not advise routine susceptibility testing of urine isolates of S. saprophyticus because infections respond to urinary concentrations of agents commonly used to treat acute, uncomplicated UTI such as nitrofurantoin, trimethoprim-sulfamethoxazole or a fluoroquinolone. Performed By: #### 3 95 #### [facility] [address], [address] [place] [id number] Continuous Improvement Engineer: Chris Daly MD Laboratory - Chemistry and C hemistry - challengeon 10-07-2023 Bilirubin Ql (U) Negative Normal [facility] HospitalSocial[facility], [employer].; [employer], [employer]. Ketones Ql (U) Negative Normal [facility]View.; [employer], [employer]. pH (U) 7.0 [pH] Normal [employer].; [employer], [employer]. Specific gravity (U) [Rel density] 1.020 Normal [employer].; [employer], [employer]. Urobilinogen Qn (U) 1.0 mg/dL Normal [facility] [employer].; [employer], [employer]. Laboratory - Hematology and Cell countson 10-07-2023 Hemoglobin Ql (U) moderate Abnormal [employer].; [employer], [employer]. Laboratory - Specimen inform ationon 10-07-2023 Appearance (U) clear Normal [facility].; [employer] Color (U) yellow Normal [employer].; [employer], [employer]. Laboratory - Urinalysison Glucose Test strip (U) [Mass/Vol] Negative Normal [employer].; [facility]. Leukocyte esterase Test strip Ql (U) small Abnormal [facility]Com[facility].; [facility], [facility]. Nitrite Ql (U) Negative Normal [facility].; [facility], [employer]. Protein Ql (U) trace Normal [facility] HospitalCom[facility].; [employer] [facility], [employer]. No Panel Informationon 10-07 CULTURE, URINE, ROUTINE SEE NOTE Abnormal H [facility] CenterCom[facility] Resources.; [facility] CelebrationOxThera [facility]. BETA STREP CULTUREon 023 BETA STREP CULTURE No beta Strep isolated. Normal [facility] Comment on above: Order Comment: NO KN OWN ALLERGIES Performed By: #### L [id number], [id number], [id number] #### [facility] [address] [place] [address] #### [id number] #### [place] [address] Influenza A & B Ag, Swab/NWo n 12-09-2022 INFLUENZA A ANTIGEN Negative Normal NEGATIVE [facility] Comment on above: Order Comment: NO KN OWN ALLERGIES Performed By: #### L [id number], [id number], [id number] #### [facility] [address] [place] [address] #### [id number] #### [place] [address] INFLUENZA B ANTIGEN Negative Normal NEGATIVE [facility] Comment on above: Order Comment: NO KN OWN ALLERGIES Performed By: #### L [id number], [id number], [id number] #### [facility] [address] [place] [address] #### [id number] #### [facility] [address] [place] [address] Influenza A & B, Swab/NWon 0 12-09-2022 FLUAV Ag IA Ql (Unsp spec) Negative NEGATIVE [facility] FLUBV Ag IA Ql (Unsp spec) Negative NEGATIVE [facility] No Panel Informationon 12-09 NO KNOWN ALLERGIES KDOH L AB [facility] SARS-CoV-2 Ag, QLon 12-09-19 SARS-CoV+SARS-CoV-2 (COVID-19) Ag IA.rapid Ql (Resp) Not detected Undetected [facility] SARS-CoV-2 Ag, QL (SWAB)on 0 12-09-2022 SARS-CoV-2 (COVID-19) Ab IA Ql Not detected Normal Undetected [facility] Comment on above: Order Comment: NO KN OWN ALLERGIES Performed By: #### L [id number], [id number], [id number] #### [place] [address] #### [id number] #### [place] [address] STREP RAPIDon 12-09-2022 S. pyogenes Ag IA.rapid Ql (Throat) Negative NEGATIVE [facility] Comment on above: BETA STREP CULTURE P ERFORMED NO KNOWN ALLERGIES KDOH L AB [facility] Strep-A Screenon 12-09-2022 STREP-A SCREEN Negative Normal NEGATIVE [facility] Comment on above: Order Comment: NO KN OWN ALLERGIES Result Comment: BETA STREP CULTURE PERFORMED Performed By: #### L [id number], [id number], [id number] #### [place] [address] #### [id number] #### [place] [address] CBCon 07-20-2022 Basophils Abs. 0.0 10*3/uL Normal 0.0-0.1 [facility] Comment on above: Order Comment: NO KN OWN ALLERGIES Performed By: #### L [id number], [id number], [id number], [id number] #### [place] [address] Basophils/100 WBC (Bld) 0.3 % Normal 0.0-1.0 [facility] Comment on above: Order Comment: NO KN OWN ALLERGIES Performed By: #### L [id number], [id number], [id number], [id number] #### [address] [place] [address] Eosinophils (Bld) [#/Vol] 0.1 10*3/uL Normal 0.0-0.5 [facility] Comment on above: Order Comment: NO KN OWN ALLERGIES Performed By: #### L [id number], [id number], [id number], [id number] #### [facility] [facility] [address] [place] [address] Eosinophils/100 WBC (Bld) 2.1 % Normal 0.3-5.0 [facility] Comment on above: Order Comment: NO KN OWN ALLERGIES Performed By: #### L ZO5751, SJE7061, QQF6104, NYR7051 #### [facility] [address] [place] [address] Erythrocyte distribution width (RBC) [Ratio] 12.8 % Normal 10.7-18.7 [facility] Comment on above: Order Comment: NO KN OWN ALLERGIES Performed By: #### L IA8871, QYF2716, GAI2429, ANT0009 #### [facility] [address] [place] [address] Hematocrit (Bld) [Volume fraction] 40.8 % Normal 33.0-51.0 [facility] Comment on above: Order Comment: NO KN OWN ALLERGIES Performed By: #### L NS8449, LVI0544, EXY5664, GRE3833 #### [facility] [address] [place] [address] 21062 Hemoglobin (Bld) [Mass/Vol] 13.6 g/dL Normal 12.0-16.0 [facility] Comment on above: Order Comment: NO KN OWN ALLERGIES Performed By: #### L IZ0502, QOM4057, DAA7669, CWZ4051 #### [facility] [address] [place] [address] Lymphocytes (Bld) [#/Vol] 2.4 10*3/uL Normal 1.1-5.0 [facility] Comment on above: Order Comment: NO KN OWN ALLERGIES Performed By: #### L JI9503, WPT5939, VJN2595, TTO3300 #### [facility] [address] [place] [address] Lymphocytes/100 WBC (Bld) 44.4 % High 24.0-44.0 [facility] Comment on above: Order Comment: NO KN OWN ALLERGIES Performed By: #### L PN7205, LIE7232, IEW7773, LUE0044 #### [facility] [address] [place] [address] MCH (RBC) [Entitic mass] 27.7 pg Normal 26.0-34.0 [facility] Comment on above: Order Comment: NO KN OWN ALLERGIES Performed By: #### L PL3561, GRK4403, UFE0450, SCU0140 #### [facility] [address] [place] [address] MCHC (RBC) [Mass/Vol] 33.3 g/dL Normal 32.0-36.0 [facility] Comment on above: Order Comment: NO KN OWN ALLERGIES Performed By: #### L YN8809, EXU4661, HEM5767, FKT0042 #### [facility] [address] [place] [address] 45581 MCV (RBC) [Entitic vol] 83.3 fL Normal 80.0-100.0 [facility] Comment on above: Order Comment: NO KN OWN ALLERGIES Performed By: #### L MU5024, DTH5143, NVV5515, OUE4563 #### [facility] [address] [place] [address] Monocytes (Bld) [#/Vol] 0.3 10*3/uL Normal 0.0-1.4 [facility] Comment on above: Order Comment: NO KN OWN ALLERGIES Performed By: #### L QE7796, BHN3268, NQQ3175, FSG5298 #### [facility] [address] [place] [address] Monocytes/100 WBC (Bld) 5.5 % Normal 2.1-13.3 [facility] Comment on above: Order Comment: NO KN OWN ALLERGIES Performed By: #### L XZ7181, LCC9802, JUU2704, URU5222 #### [facility] [address] [place] [address] Neutrophils Abs. 2.5 10*3/uL Normal 1.5-8.5 [facility] Comment on above: Order Comment: NO KN OWN ALLERGIES Performed By: #### L XY0723, NAJ3332, VGK1039, FWV4784 #### [facility] [address] [place] [address] Neutrophils/100 WBC (Bld) 47.7 % Normal 35.0-66.0 [facility] Comment on above: Order Comment: NO KN OWN ALLERGIES Performed By: #### L GC0840, NVH9855, JWX1545, IHL9711 #### [facility] [address] [place] [address] Platelet cnt 288 10*3/uL Normal 150-450 [facility] Comment on above: Order Comment: NO KN OWN ALLERGIES Performed By: #### L ZU3011, GVY4683, SLV5579, YBD1243 #### [facility] [address] [place] [address] 28051 Platelet mean volume (Bld) [Entitic vol] 7.2 fL Normal 6.5-10.0 [facility] Comment on above: Order Comment: NO KN OWN ALLERGIES Performed By: #### L GR4563, ORJ5840, ZUJ9556, GYS4172 #### [facility] [address] [place] [address]65[address] RBC (Bld) [#/Vol] 4.90 10*6/uL Normal 4.00-5.20 [facility] Comment on above: Order Comment: NO KN OWN ALLERGIES Performed By: #### L JP0134, YTO3394, JUD3626, JGJ1270 #### [facility] [address] [place] [address] 575[address] WBC (Bld) [#/Vol] 5.3 10*3/uL Normal 4.5-11.0 [facility] Comment on above: Order Comment: NO KN OWN ALLERGIES Performed By: #### L VC7680, XDL3288, AFI6785, MSH1060 #### [facility] [address] [place] [address] Basophils (Bld) [#/Vol] 0.0 10*3/uL 0.0 - 0.1 10*3/uL [facility] Basophils/100 WBC (Bld) 0.3 % 0.0 - 1.0 % [facility] Eosinophils (Bld) [#/Vol] 0.1 10*3/uL 0.0 - 0.5 10*3/uL [facility] Eosinophils/100 WBC (Bld) 2.1 % 0.3 - 5.0 % [facility] Erythrocyte distribution width (RBC) [Ratio] 12.8 % 10.7 - 18.7 % [facility] Hematocrit (Bld) [Volume fraction] 40.8 % 33.0 - 51.0 % [facility] Hemoglobin (Bld) [Mass/Vol] 13.6 g/dL 12.0 - 16.0 g/dL [facility] Interpretation and review of laboratory results Abnormal [facility] Lymphocytes Manual cnt (Body fld) [#/Vol] 2.4 10*3/uL 1.1 - 5.0 10*3/uL [facility] Lymphocytes/100 WBC (Bld) 44.4 % High 24.0 - 44.0 % [facility] MCH (RBC) [Entitic mass] 27.7 pg 26.0 - 34.0 pg [facility] MCHC (RBC) [Mass/Vol] 33.3 g/dL 32.0 - 36.0 g/dL [facility] MCV (RBC) [Entitic vol] 83.3 fL 80.0 - 100.0 fL [facility] Monocytes (Bld) [#/Vol] 0.3 10*3/uL 0.0 - 1.4 10*3/uL [facility] Monocytes+Macrophages/1 00 WBC (Bld) 5.5 % 2.1 - 13.3 % [facility] Neutrophils (Bld) [#/Vol] 2.5 10*3/uL 1.5 - 8.5 10*3/uL [facility] Neutrophils/100 WBC (Bld) 47.7 % 35.0 - 66.0 % [facility] Platelet mean volume (Bld) [Entitic vol] 7.2 fL 6.5 - 10.0 fL [facility] Platelets (Bld) [#/Vol] 288 10*3/uL 150 - 450 10*3/uL [facility] RBC (Bld) [#/Vol] 4.90 10*6/uL 4.00 - 5.2 0 10*6/uL [facility] WBC (Bld) [#/Vol] 5.3 10*3/uL 4.5 - 11.0 10*3/uL [facility] NO KNOWN ALLERGIES KDOH L AB [facility] COMPREHENSIVE METABOLIC PANE Mayco 07-20-2022 Albumin [Mass/Vol] 4.3 g/dL Normal 3.2-5.0 [facility] Comment on above: Order Comment: NO KN OWN ALLERGIES Performed By: #### L EB8869, NMG5456, GHI9598, NUO6615 #### [facility] [address] [place] [address] Albumin/Globulin [Mass ratio] 1.4 {ratio} Normal [facility] Comment on above: Order Comment: NO KN OWN ALLERGIES Performed By: #### L ZI8461, QTQ1403, CFK0410, DOW3895 #### [facility] [address] [place] [address] ALP [Catalytic activity/Vol] 67 U/L Normal 42-121 [facility] Comment on above: Order Comment: NO KN OWN ALLERGIES Performed By: #### L QQ4425, CRH9888, FVA5212, ZKP2770 #### [facility] [address] [place] [address] ALT [Catalytic activity/Vol] 14 U/L Normal 10-60 [facility] Comment on above: Order Comment: NO KN OWN ALLERGIES Performed By: #### L XM5242, HHT1999, SCH2663, GSG2398 #### [facility] [address] [place] [address] Anion gap [Moles/Vol] 6 mmol/L Normal [facility] Comment on above: Order Comment: NO KN OWN ALLERGIES Performed By: #### L SN1667, ZHW9218, MIW8403, LEQ5840 #### [facility] [address] [place] [address] AST [Catalytic activity/Vol] 19 U/L Normal 10-42 [facility] Comment on above: Order Comment: NO KN OWN ALLERGIES Performed By: #### L LN5104, IKM5069, HUL6135, NUL4702 #### [facility] [address] [place] [address] 24412 B/C 16 Normal 10-20 [facility] Comment on above: Order Comment: NO KN OWN ALLERGIES Performed By: #### L OY5368, PLA1723, VWL7829, LGC0103 #### [facility] [address] [place] [address] 29518 Bilirubin.direct [Mass/Vol] 0.4 mg/dL Normal 0.2-1.0 [facility] Comment on above: Order Comment: NO KN OWN ALLERGIES Performed By: #### L WR1216, WQG7211, UIU0577, ZTL1811 #### [facility] [address] [place] [address] Calcium [Mass/Vol] 9.4 mg/dL Normal 8.5-10.5 [facility] Comment on above: Order Comment: NO KN OWN ALLERGIES Performed By: #### L YG6165, JFI1969, ZRL0097, ILX8516 #### [facility] [address] [place] [address] 13825 Chloride [Moles/Vol] 104 mmol/L Normal 101-111 [facility] Comment on above: Order Comment: NO KN OWN ALLERGIES Performed By: #### L YU4469, VBR2963, AQD3660, TXI4300 #### [facility] [address] [place] [address] CO2 [Moles/Vol] 28 mmol/L Normal 21-31 [facility] Comment on above: Order Comment: NO KN OWN ALLERGIES Performed By: #### L BS8639, AKQ3024, BIH7500, GYK2071 #### [facility] [address] [place] [address] Creatinine [Mass/Vol] 0.7 mg/dL Normal 0.4-1.0 [facility] Comment on above: Order Comment: NO KN OWN ALLERGIES Performed By: #### L ZE5194, XKT4856, CXN7954, AFK6079 #### [facility] [address] [place] [id number] GFR/1.73 sq M.predicted MDRD (S/P/Bld) [Vol rate/Area] mL/min/{1.73_m2} Normal [facility] Comment on above: Order Comment: NO KN OWN ALLERGIES Result Comment: *The estimated Glomerular Filtration Rate(EGFR) may not be accurate for children under the age of 18 yrs. To estimate the GFR for -Americans multiply the result provided by 1.21. Stage 1 90 mL/min or greater Stage 2 60-89 mL/min Stage 3 30-59 mL/min Stage 4 15-29 mL/min Stage 5 14 mL/min or less Performed By: #### L TU3847, UOV2224, IAM8614, GOE0712 #### [facility] [address] [place] [address] Glucose [Mass/Vol] 77 mg/dL Normal 70-110 [facility] Comment on above: Order Comment: NO KN OWN ALLERGIES Performed By: #### L VD4810, FCN9670, ABM0584, EUF3832 #### [facility] [address] [place] [address] Osmolality [Osmolality] 274 mosm/kg Normal 266-309 [facility] Comment on above: Order Comment: NO KN OWN ALLERGIES Performed By: #### L PP1627, KMM4722, OVK0738, HDG7453 #### [facility] [address] [place] [address] Potassium [Moles/Vol] 3.6 mmol/L Normal 3.6-5.0 [facility] Comment on above: Order Comment: NO KN OWN ALLERGIES Performed By: #### L PN6148, OUQ6750, LBI0233, MWN1869 #### [facility] [address] [place] [address] Protein [Mass/Vol] 7.3 g/dL Normal 6.1-7.8 [facility] Comment on above: Order Comment: NO KN OWN ALLERGIES Performed By: #### L OD4574, GIP6267, KFP0381, VFL3388 #### [facility] [address] [place] [address] Sodium [Moles/Vol] 138 mmol/L Normal 135-145 [facility] Comment on above: Order Comment: NO KN OWN ALLERGIES Performed By: #### L PU5870, PEW2321, QXP4892, SLL2226 #### [facility] [address] [place] [address] Urea nitrogen [Mass/Vol] 11 mg/dL Normal 2-32 [facility] Comment on above: Order Comment: NO KN OWN ALLERGIES Performed By: #### L TS2720, PLN0822, LVR9445, IAI6416 #### [facility] [address] [place] [phone] Comprehensive Metabolic Pane mayco 07-20-2022 Albumin [Mass/Vol] 4.3 g/dL 3.2 - 5.0 g/dL [facility] Albumin/Globulin [Mass ratio] 1.4 {ratio} [facility] ALP [Catalytic activity/Vol] 67 U/L 42 - 121 [iU]/L [facility] ALT [Catalytic activity/Vol] 14 U/L 10 - 60 [iU]/L [facility] Anion gap [Moles/Vol] 6 mmol/L [facility] AST [Catalytic activity/Vol] 19 U/L 10 - 42 [iU]/L [facility] Bilirubin [Mass/Vol] 0.4 mg/dL 0.2 - 1 .0 mg/dL [facility] Calcium [Mass/Vol] 9.4 mg/dL 8.5 - 10. 5 mg/dL [facility] Chloride [Moles/Vol] 104 mmol/L 101 - 1 11 mmol/L [facility] CO2 [Moles/Vol] 28 mmol/L 21 - 31 mmol/L [facility] Creatinine [Mass/Vol] 0.7 mg/dL 0.4 - 1.0 mg/dL [facility] GFR/1.73 sq M.predicted MDRD (S/P/Bld) [Vol rate/Area] mL/min/{1.73_m2} mL/min [facility] Comment on above: *The estimated Glome rular Filtration Rate(EGFR) may not be accurate for children under the age of 18 yrs. To estimate the GFR for -Americans multiply the result provided by 1.21. Stage 1 90 mL/min or greater Stage 2 60-89 mL/min Stage 3 30-59 mL/min Stage 4 15-29 mL/min Stage 5 14 mL/min or less Glucose [Mass/Vol] 77 mg/dL 70 - 110 mg/dL [facility] Osmolality Calc [Osmolality] 274 [facility] Potassium [Moles/Vol] 3.6 mmol/L 3.6 - 5.0 mmol/L [facility] Protein [Mass/Vol] 7.3 g/dL 6.1 - 7.8 g/dL [facility] Sodium [Moles/Vol] 138 mmol/L 135 - 145 mmol/L [facility] Urea nitrogen [Mass/Vol] 11 mg/dL 2 - 32 mg/dL [facility] Urea nitrogen/Creatinine [Mass ratio] 16 mg/mg [facility] NO KNOWN ALLERGIES KDOH L AB [facility] MONOon 07-20-2022 Heterophile Ab IA Ql Negative NEGATIVE [facility] NO KNOWN ALLERGIES KDOH L AB [facility] Mononucleolis Serologyon MONO SEROLOGY Negative Normal NEGATIVE [facility] Comment on above: Order Comment: NO KN OWN ALLERGIES Performed By: #### L JN7251, ZHF0194, MJU1286, QJP6867 #### [facility] [address] [place] [address] 78028 TSHon 07-20-2021 TSH Qn 1.33 m[IU]/L Normal 0.30-5.60 [facility] Comment on above: Order Comment: NO KN OWN ALLERGIES Performed By: #### L LA8210, YSE6324, VWA4431, MDM7688 #### [facility] [address] [place] [address] TSH, High Sensitivityon 06-23-2021 TSH Qn 1.33 m[IU]/L 0.30 - 5.60 u[iU]/mL [facility] NO KNOWN ALLERGIES KDOH L AB [facility] HEPATIC FUNCTION PANELon Albumin [Mass/Vol] 4.0 g/dL Normal 3.2-5.0 [facility] Comment on above: Order Comment: NO KN OWN ALLERGIES Performed By: #### L ST1399, UVO6754, OWP1612 #### [facility] [address] [place] [address] #### [id number] #### [place] [address] ALP [Catalytic activity/Vol] 60 U/L Normal 42-121 [facility] Comment on above: Order Comment: NO KN OWN ALLERGIES Performed By: #### L QV4105, JGT2672, CYW0070 #### [facility] [address] [place] [address] #### [id number] #### [place] [address] ALT [Catalytic activity/Vol] 14 U/L Normal 10-60 [facility] Comment on above: Order Comment: NO KN OWN ALLERGIES Performed By: #### L UP2026, ODL6611, DWN8207 #### [facility] [address] [place] [address] #### [id number] #### [facility] [address] [place] [address] AST [Catalytic activity/Vol] 18 U/L Normal 10-42 [facility] Comment on above: Order Comment: NO KN OWN ALLERGIES Performed By: #### L OC2446, GMF8205, VQD3090 #### [place] [address] #### SED3550 #### [place] [address] Bilirubin.direct [Mass/Vol] 0.5 mg/dL Normal 0.2-1.0 [facility] Comment on above: Order Comment: NO KN OWN ALLERGIES Performed By: #### L HL8393, VSK5378, XIW3459 #### [place] [address] #### [id number] #### [place] [address] Bilirubin.direct [Mass/Vol] 0.1 mg/dL Normal 0.0-0.2 [facility] Comment on above: Order Comment: NO KN OWN ALLERGIES Performed By: #### L WF9131, ENP3221, YZD5330 #### [facility] [address] [place] [address] #### [id number] #### [place] [address] Protein [Mass/Vol] 6.8 g/dL Normal 6.1-7.8 [facility] Comment on above: Order Comment: NO KN OWN ALLERGIES Performed By: #### L OA8663, XWS1343, WMI2149 #### [facility] [address] [place] [address] #### [id number] #### [place] [address] LIPID PANELon 05-26-2022 Cholesterol [Mass/Vol] 178 mg/dL Normal 10-200 [facility] Comment on above: Order Comment: NO KN OWN ALLERGIES Performed By: #### L XC7777, OEB4714, DOH0884 #### [facility] [address] [place] [address] #### [id number] #### [facility] [address] [place], [place] [phone] Cholesterol in HDL [Mass/Vol] 57.0 mg/dL Normal 29.0-89.0 [facility] Comment on above: Order Comment: NO KN OWN ALLERGIES Performed By: #### L GE3267, QRK9205, YQP0093 #### [facility] [address] [place] [address] #### [id number] #### [facility] [address] [place], [place] [phone] Cholesterol in LDL [Mass/Vol] 96.0 mg/dL Normal [facility] Comment on above: Order Comment: NO KN OWN ALLERGIES Result Comment: CAP STANDARDIZED LDL-CHOLESTEROL VALUES <130-DESIRABLE 130-159 BORDERLINE/HIGH RISK >160-HIGH RISK Performed By: #### L YZ6558, BAA6766, IZX6224 #### [facility] [address] [place] [address] #### [id number] #### [facility] [address] [place] [address] Cholesterol in VLDL [Mass/Vol] 25.0 mg/dL Normal [facility] Comment on above: Order Comment: NO KN OWN ALLERGIES Performed By: #### L ON7299, AND0327, OHH5105 #### [facility] [address] [place] [address] #### [id number] #### [facility] [address] [place] [address] RISK 1, FEMALE 3.12 Normal [facility] Comment on above: Order Comment: NO KN OWN ALLERGIES Result Comment: TOTA L CHOL/HDL 1/2 AVERAGE 3.27 AVERAGE 4.44 2 X AVERAGE 7.05 3 X AVERAGE 11.04 Performed By: #### L IU0980, OYC0560, CAU8568 #### [facility] [address] [place] [address] #### [id number] #### [place] [address] RISK 1, MALE 3.12 Normal [facility] Comment on above: Order Comment: NO KN OWN ALLERGIES Result Comment: TOTA L CHOL/HDL 1/2 AVERAGE 3.43 AVERAGE 4.97 2 X AVERAGE 9.55 3 X AVERAGE 23.39 Performed By: #### L RS3034, SJG4838, CCL3996 #### [facility] [address] [place] [address] #### [id number] #### [place] [address] RISK 2, FEMALE 1.68 Normal [facility] Comment on above: Order Comment: NO KN OWN ALLERGIES Result Comment: LDL/ HDL 1/2 AVERAGE 1.47 AVERAGE 3.22 2 X AVERAGE 5.03 3 X AVERAGE 6.14 Performed By: #### L EE1483, HET0996, XWX9675 #### [facility] [address] [place] [address] #### [id number] #### [place] [address] RISK 2, MALE 1.68 Normal [facility] Comment on above: Order Comment: NO KN OWN ALLERGIES Result Comment: LDL/ HDL 1/2 AVERAGE 1.00 AVERAGE 3.55 2 X AVERAGE 6.25 3 X AVERAGE 7.99 Performed By: #### L MK4295, FGZ1634, ZOS5453 #### [facility] [address] [place] [address] #### [id number] #### [place] [address] Triglyceride [Mass/Vol] 125 mg/dL Normal 46-236 [facility] Comment on above: Order Comment: NO KN OWN ALLERGIES Performed By: #### L MM2914, VKU1139, NBT7760 #### [facility] [address] [place] [address] #### [id number] #### [place] [address] HEPATIC FUNCTION PANELon 03- 24-2022 Albumin [Mass/Vol] 4.0 g/dL Normal 3.2-5.0 [facility] Comment on above: Order Comment: NO KN OWN ALLERGIES Performed By: #### L [id number], BHX8129 #### [facility] [address] [place] [address] ALP [Catalytic activity/Vol] 58 U/L Normal 42-121 [facility] Comment on above: Order Comment: NO KN OWN ALLERGIES Performed By: #### L EC4304, XSF6935 #### [facility] [address] [place] [address] ALT [Catalytic activity/Vol] 15 U/L Normal 10-60 [facility] Comment on above: Order Comment: NO KN OWN ALLERGIES Performed By: #### L GS2910, ZDE6572 #### [facility] [address] [place] [address] AST [Catalytic activity/Vol] 18 U/L Normal 10-42 [facility] Comment on above: Order Comment: NO KN OWN ALLERGIES Performed By: #### L FI5651, UYP0580 #### [facility] [address] [place] [address] Bilirubin.direct [Mass/Vol] 0.5 mg/dL Normal 0.2-1.0 [facility] Comment on above: Order Comment: NO KN OWN ALLERGIES Performed By: #### L FK6521, [id number] #### [facility] [address] [place] [address] Bilirubin.direct [Mass/Vol] 0.1 mg/dL Normal 0.0-0.2 [facility] Comment on above: Order Comment: NO KN OWN ALLERGIES Performed By: #### L ZT6883, CMZ6607 #### [facility] [address] [place] [address] Protein [Mass/Vol] 6.8 g/dL Normal 6.1-7.8 [facility] Comment on above: Order Comment: NO KN OWN ALLERGIES Performed By: #### L SO1796, FWX4760 #### [facility] [address] [place] [address] Hepatic Function Panelon Albumin [Mass/Vol] 4.0 g/dL 3.2 - 5.0 g/dL [facility] ALP [Catalytic activity/Vol] 58 U/L 42 - 121 [iU]/L [facility] ALT [Catalytic activity/Vol] 15 U/L 10 - 60 [iU]/L [facility] AST [Catalytic activity/Vol] 18 U/L 10 - 42 [iU]/L [facility] Bilirubin [Mass/Vol] 0.5 mg/dL 0.2 - 1 .0 mg/dL [facility] Bilirubin.direct [Mass/Vol] 0.1 mg/dL 0.0 - 0.2 mg/dL [facility] Protein [Mass/Vol] 6.8 g/dL 6.1 - 7.8 g/dL [facility] LIPID PANELon 02-11-2022 Cholesterol [Mass/Vol] 172 mg/dL Normal 10-200 [facility] Comment on above: Order Comment: NO KN OWN ALLERGIES Performed By: #### L CB8931, JRA7397, MRH7605 #### [facility] [address] [place] [address] #### [id number] #### [facility] [address] [place] [address] Cholesterol in HDL [Mass/Vol] 78.0 mg/dL Normal 29.0-89.0 [facility] Comment on above: Order Comment: NO KN OWN ALLERGIES Performed By: #### L TB9224, VGM5154, NGX3181 #### [facility] [address] [place] [address] #### [id number] #### [facility] [address] [place] [address] Cholesterol in LDL [Mass/Vol] 73.0 mg/dL Normal [facility] Comment on above: Order Comment: NO KN OWN ALLERGIES Result Comment: CAP STANDARDIZED LDL-CHOLESTEROL VALUES <130-DESIRABLE 130-159 BORDERLINE/HIGH RISK >160-HIGH RISK Performed By: #### L [id number], [id number], [id number] #### [facility] [address] [place] [address] #### [id number] #### [facility] [address] [place] [address] Cholesterol in VLDL [Mass/Vol] 21.0 mg/dL Normal [facility] Comment on above: Order Comment: NO KN OWN ALLERGIES Performed By: #### L [id number], [id number], [id number] #### [facility] [address] [place] [address] 12328 #### [id number] #### [place] [address] RISK 1, FEMALE 2.21 Normal [facility] Comment on above: Order Comment: NO KN OWN ALLERGIES Result Comment: TOTA L CHOL/HDL 1/2 AVERAGE 3.27 AVERAGE 4.44 2 X AVERAGE 7.05 3 X AVERAGE 11.04 Performed By: #### L [id number], [id number], [id number] #### [facility] [address] [place] [address] 62[address] #### [id number] #### [place] [address] RISK 1, MALE 2.21 Normal [facility] Comment on above: Order Comment: NO KN OWN ALLERGIES Result Comment: TOTA L CHOL/HDL 1/2 AVERAGE 3.43 AVERAGE 4.97 2 X AVERAGE 9.55 3 X AVERAGE 23.39 Performed By: #### L [id number], [id number], [id number] #### [facility] [address] [place] [address] #### [id number] #### [facility] [address] [place] [address] RISK 2, FEMALE 0.94 Normal [facility] Comment on above: Order Comment: NO KN OWN ALLERGIES Result Comment: LDL/ HDL 1/2 AVERAGE 1.47 AVERAGE 3.22 2 X AVERAGE 5.03 3 X AVERAGE 6.14 Performed By: #### L [id number], [id number], [id number] #### [facility] [address] [place] [address] #### [id number] #### [facility] [address] [place] [address] RISK 2, MALE 0.94 Normal [facility] Comment on above: Order Comment: NO KN OWN ALLERGIES Result Comment: LDL/ HDL 1/2 AVERAGE 1.00 AVERAGE 3.55 2 X AVERAGE 6.25 3 X AVERAGE 7.99 Performed By: #### L [id number], [id number], [id number] #### [facility] [address] [place] [address] #### [id number] #### [facility] [address] [place] [address] Triglyceride [Mass/Vol] 105 mg/dL Normal 46-236 [facility] Comment on above: Order Comment: NO KN OWN ALLERGIES Performed By: #### L [id number], [id number], [id number] #### [facility] [address] [place] [address] #### [id number] #### [facility] [address] [place] [address] Lipid Panelon 02-11-2022 Cholesterol [Mass/Vol] 172 mg/dL 10 - 200 mg/dL [facility] Cholesterol in HDL [Mass/Vol] 78.0 mg/dL 29.0 - 89.0 mg/dL [facility] Cholesterol in LDL [Mass/Vol] 73.0 mg/dL [facility] Comment on above: CAP STANDARDIZED LDL -CHOLESTEROL VALUES <130-DESIRABLE 130-159 BORDERLINE/HIGH RISK >160-HIGH RISK Cholesterol in VLDL [Mass/Vol] 21.0 mg/dL [facility] RISK 1, FEMALE 2.21 [facility] Comment on above: TOTAL CHOL/HDL 1/2 AVERAGE 3.27 AVERAGE 4.44 2 X AVERAGE 7.05 3 X AVERAGE 11.04 RISK 1, MALE 2.21 [facility] Comment on above: TOTAL CHOL/HDL 1/2 AVERAGE 3.43 AVERAGE 4.97 2 X AVERAGE 9.55 3 X AVERAGE 23.39 RISK 2, FEMALE 0.94 [facility] Comment on above: LDL/HDL 1/2 AVERAGE 1.47 AVERAGE 3.22 2 X AVERAGE 5.03 3 X AVERAGE 6.14 RISK 2, MALE 0.94 [facility] Comment on above: LDL/HDL 1/2 AVERAGE 1.00 AVERAGE 3.55 2 X AVERAGE 6.25 3 X AVERAGE 7.99 Triglyceride [Mass/Vol] 105 mg/dL 46 - 236 mg/dL [facility] No Panel Informationon 02-11 NO KNOWN ALLERGIES KDOH L AB [facility] SARS-CoV, QL, PCRon 12-23-19 SARS-CoV, QL, PCR Not detected Normal [facility] Comment on above: Order Comment: Sympt omatic?->Yes Indications (select all that apply)->Close contact with positive COVID-19 Was specimen collected by a [facility] meat team member?->Yes Was this specimen self collected?->No NO KNOWN ALLERGIES Result Comment: Testing was performed using the [employer] Direct. Fact sheets for this Emergency Use Authorization (EUA) assay can be found at the following links: For Healthcare Providers: https://www.fda.gov/media/463454/download For Patients: https://www.fda.gov/media/507307/download Test Performed by: [facility], Lab, [address] [place] [id number] Computer Mechanic: Chapo Villeda D.O.; CLIA#: [id number] Performed By: #### L [id number] #### [facility] [address] [place] [address] Laboratory - Microbiology an d Antimicrobial susceptibilityon 01-10-2018 FLUAV Ag IA Ql (Throat) Positive Abnormal H [employer] [facility] [employer] [facility] FLUAV Ag IA Ql (Throat) Negative Normal [facility] [employer] [facility] Laboratory - Microbiology an d Antimicrobial susceptibilityon 01-12-2017 S. pyogenes Ag EIA Ql (Throat) Negative Normal [employer], [employer] Laboratory - Hematology and Cell countson 05-15-2014 Hemoglobin (Bld) [Mass/Vol] 14.1 g/dL Normal 11.5 - 14.2 g/dL [facility], [facility]. Laboratoryon 02-27-2013 A. alternata IgE RAST class (S) 0 Normal [facility].; [facility], [facility]. Laboratory - Allergyon 02-27 A. alternata IgE Qn (S) < 0.35 Normal [facility].; [facility], [facility] A. fumigatus IgE Qn (S) < 0.35 Normal [facility].; [facility], [facility]. A. fumigatus IgE RAST class (S) 0 Normal [facility].; [facility], [facility] Pitcairn Islander house dust mite IgE Qn (S) < 0.35 Normal [facility].; [facility], [facility]. [place] Islander house dust mite IgE RAST class (S) 0 Normal [facility].; [facility], [facility] Bermuda grass IgE Qn (S) < 0.35 Normal [facility].; [facility], [facility]. [place] grass IgE RAST class (S) 0 Normal [facility].; [facility], [facility]. Boxelder IgE Qn (S) < 0.35 Normal [facility], [facility]. Boxelder IgE RAST class (S) 0 Normal [facility].; [facility], [facility]. C. herbarum IgE Qn (S) < 0.35 Normal [facility].; [facility], [facility]. C. herbarum IgE RAST class (S) 0 Normal [facility].; [facility], [facility]. [place] Pollen IgE Qn (S) < 0.35 Normal [facility].; [facility], [facility]. [place] Pollen IgE RAST class (S) 0 Normal [facility], [facility].; [facility], [facility] Cat dander IgE Qn (S) < 0.35 Normal [facility].; [facility], [facility] Cat dander IgE RAST class (S) [address] [facility] Cockroach IgE Qn (S) 0.96 {KU/L} Abnormal [facility] Cockroach IgE RAST class (S) 2 Normal [facility], [facility].; [facility], [facility] Common Pigweed IgE Qn (S) < 0.35 Normal [facility], [facility].; [facility] Common Pigweed IgE RAST class (S) 0 Normal [facility], [facility].; [facility], [facility] Common Ragweed IgE Qn (S) < 0.35 Normal [facility], [facility].; [facility], [facility]. Common Ragweed IgE RAST class (S) 0 Normal [facility], [facility].; [facility], [facility] [place] IgE Qn (S) < 0.35 Normal [facility], [facility].; [facility], [facility]. [place] IgE RAST class (S) 0 Normal [facility], [facility].; [facility], [facility] Dog dander IgE Qn (S) < 0.35 Normal [facility], [facility].; [facility] Dog dander IgE RAST class (S) 0 Normal [facility], [facility].; [facility], [facility] house dust mite IgE Qn (S) < 0.35 Normal [facility], [facility].; [facility], [facility] house dust mite IgE RAST class (S) 0 Normal [facility], [facility].; [facility], [facility] Cleary Plane IgE Qn (S) < 0.35 Normal [facility], [facility].; [facility], [facility] [place] Pl[place] IgE RAST class (S) 0 Normal [facility], [facility].; [facility], [facility]. Mountain Juniper IgE Qn (S) < 0.35 Normal [facility], [facility].; [facility] Mountain Juniper IgE RAST class (S) 0 Normal [facility] P. notatum IgE Qn (S) < 0.35 Normal [facility], [facility].; [facility] P. notatum IgE RAST class (S) 0 Normal [facility], [facility].; [facility], [facility] Pecan or [place]ab[place] Tree IgE Qn (S) < 0.35 Normal [facility], [facility].; [facility] Pecan or [place] Tree IgE RAST class (S) 0 Normal [facility].; [facility], [facility] Saltwort IgE Qn (S) < 0.35 Normal [facility] Saltwort IgE RAST class (S) 0 Normal [facility], [facility].; [facility], [facility] Sheep Keenes IgE Qn (S) < 0.35 Normal [facility], [facility].; [facility], [facility] Sheep Keenes IgE RAST class (S) 0 Normal [facility], [facility].; [facility], [facility] Silver Birch IgE Qn (S) < 0.35 Normal [facility] Silver Birch IgE RAST class (S) 0 Normal [facility], [facility].; [facility], [facility] Grabiel IgE Qn (S) < 0.35 Normal [facility], [facility].; [facility], [facility] Grabiel IgE RAST class (S) 0 Normal [facility], [facility].; [facility], [facility] White Dionicio IgE Qn (S) < 0.35 Normal [facility] White Dionicio IgE RAST class (S) 0 Normal [facility], [facility].; [facility], [facility] White Elm IgE Qn (S) < 0.35 Normal [facility] White Elm IgE RAST class (S) 0 Normal [facility], [facility].; [facility] White mulberry IgE Qn (S) < 0.35 Normal [facility].; [facility] White mulberry IgE RAST class (S) 0 Normal [facility].; [facility], [facility] [place] IgE Qn (S) < 0.35 Normal [facility] [place] IgE RAST class (S) 0 Normal [facility]; [facility] Laboratory - Chemistry and C hemistry - challengeon 02-27-2013 IgE Qn 37 {KU/L} Normal [facility]; [facility] Vital Signs Date Time Vital Sign Value Performing Clinician Facility 05-31-2025 16:13-0400 Body temperature 98.7 [degF] Dr. Ildefonso Rodriguez MD Work Phone: [phone])[phone] [place] [address] 05-31-2025 16:13-0400 Diastolic blood pressure 58 mm[Hg] Dr. Ildefonso Rodriguez MD Work Phone: 0(807)[phone] [place] [address] 05-31-2025 16:13-0400 Heart rate 65 /min Dr. Ildefonso Rodriguez MD Work Phone: [phone] [address] 05-31-2025 16:13-0400 Respiratory rate 14 /min Dr. Ildefonso Rodriguez MD Work Phone: 2(107)[phone] [place] [address] 05-31-2025 16:13-0400 SaO2% (BldA) [Mass fraction] 96 % Dr. Ildefonso Rodriguez MD Work Phone: [phone])[phone] [place] [address] 05-31-2025 16:13-0400 Systolic blood pressure 98 mm[Hg] Dr. Ildefonso Rodriguez MD Work Phone: [phone])[phone] [place] [address] 10-17-2024 11:14-0500 Body height 167.64 cm Elizabeth Ratliff LPN [facility] 10-17-2024 11:14-0500 Body mass index (BMI) [Ratio] 24.21 kg/m2 Elizabeth Ratliff LPN [facility].; [facility] 10-17-2024 11:14-0500 Body surface area Derived from formula 1.77 m2 Elizabeth Ratliff LPN [facility]; [facility] 10-17-2024 11:14-0500 Body weight 68.04 kg Elizabeth M Evy [facility] [employer] [facility] 10-17-2024 11:14-0500 Diastolic blood pressure 75 mm[Hg] Elizabeth Ratliff [employer] [facility] [employer]. Comment on above: Patient Position: Sitting; Cuff Location : Left Arm; Cuff Size: Standard 10-17-2024 11:14-0500 Heart rate 86 /min Elizabeth Ratliff [employer] [facility].; [employer]. Comment on above: Pattern: Regular 10-17-2024 11:14-0500 Systolic blood pressure 116 mm[Hg] Elizabeth Ratliff [facility] [employer]. Comment on above: Patient Position: Sitting; Cuff Location : Left Arm; Cuff Size: Standard 02-29-2024 10:32-0400 Body height 167.64 cm Elizabeth Lolabach [facility] [employer]. 02-29-2024 10:32-0400 Body mass index (BMI) [Ratio] 22.92 kg/m2 Elizabeth Lolabach [facility] [employer] [facility], [employer]. 02-29-2024 10:32-0400 Body surface area Derived from formula 1.73 m2 Elizabeth Lolabach [facility], [facility].; [employer] [facility], [facility]. 02-29-2024 10:32-0400 Body weight 64.41 kg Elizabeth Lolabach [employer] [facility] [employer]. 02-29-2024 10:32-0400 Diastolic blood pressure 77 mm[Hg] Elizabeth Ratliff [employer] [facility] [employer]. Comment on above: Patient Position: Sitting; Cuff Location : Left Arm; Cuff Size: Standard 02-29-2024 10:32-0400 Heart rate 94 /min Elizabeth Lolabach [employer] [facility] [employer]. Comment on above: Pattern: Regular 02-29-2024 10:32-0400 Systolic blood pressure 120 mm[Hg] Elizabeth Ratliff [facility], [facility].; [facility], [employer]. Comment on above: Patient Position: Sitting; Cuff Location : Left Arm; Cuff Size: Standard 02-01-2024 13:30-0400 Body height 167.64 cm [facility], [facility].; [facility] 02-01-2024 13:30-0400 Body mass index (BMI) [Ratio] 22.11 kg/m2 [facility], [facility].; [facility], [facility]. 02-01-2024 13:30-0400 Body surface area Derived from formula 1.7 m2 [facility], [facility].; [facility], [facility]. 02-01-2024 13:30-0400 Body temperature 99.7 [degF] [facility], [facility].; [employer]. Comment on above: Method: Tympanic 02-01-2024 13:30-0400 Body weight 62.14 kg [facility], [facility].; [facility], [facility]. 02-01-2024 13:30-0400 Diastolic blood pressure 76 mm[Hg] [facility], [facility].; [employer] [facility], [employer]. Comment on above: Patient Position: Sitting; Cuff Location : Left Arm; Cuff Size: Standard 02-01-2024 13:30-0400 Heart rate 87 /min [facility], [facility].; [employer] [facility], [employer]. Comment on above: Pattern: Regular 02-01-2024 13:30-0400 Inhaled oxygen concentration 20 % [facility], [facility].; [employer] [facility]. Comment on above: Room air 02-01-2024 13:30-0400 Inhaled oxygen concentration 21 % [facility], [facility].; [employer] [facility], [employer]. Comment on above: Room air 02-01-2024 13:30-0400 SaO2% (BldA) [Mass fraction] 99 % [facility], [facility].; [employer] [facility], [employer]. 02-01-2024 13:30-0400 Systolic blood pressure 118 mm[Hg] Apolonia Munoz LPN [facility] Comment on above: Patient Position: Sitting; Cuff Location : Left Arm; Cuff Size: Standard 01-13-2024 12:17-0500 Body height 167.[address] Ildefonso Rodriguez Work Phone: [facility] 01-13-2024 12:17-0500 Body mass index (BMI) [Ratio] 22.6 kg/m2 Dr. Ildefonso Rodriguez Work Phone: 1(930)[phone] [place] [address] 01-13-2024 12:17-0500 Body temperature 100.2 [degF] Dr. Ildefonso Rodriguez Work Phone: [phone])[phone] [address] 01-13-2024 12:17-0500 Body weight 63.[address] Ildefonso Rodriguez Work Phone: [phone](280)[phone] [place] [address] 01-13-2024 12:17-0500 Diastolic blood pressure 78 mm[Hg] Dr. Ildefonso Rodriguez Work Phone: 6(370)[phone] [place] [address] 01-13-2024 12:17-0500 Heart rate 92 /min Dr. Ildefonso Rodriguez Work Phone: 5(716)[phone] [place] [address] 01-13-2024 12:17-0500 Respiratory rate 18 /min Dr. Ildefonso Rodriguez Work Phone: [phone])[phone] [place] [address] 01-13-2024 12:17-0500 SaO2% (BldA) [Mass fraction] 98 % Dr. Ildefonso Rodriguez Work Phone: [facility] 01-13-2024 12:17-0500 Systolic blood pressure 118 mm[Hg] Dr. Ildefonso Rodriguez Work Phone: [phone] [place] [address] 12-15-2023 08:51-0500 Body height 167.64 cm Elizabeth Ratliff LPN [facility] 12-15-2023 08:51-0500 Body mass index (BMI) [Ratio] 22.92 kg/m2 Elizabeth M Evy [facility], [facility].; [employer] [facility]. 12-15-2023 08:51-0500 Body surface area Derived from formula 1.73 m2 Elizabeth Trujillo Evy ROSE [facility], [facility].; [facility] 12-15-2023 08:51-0500 Body temperature 98.7 [degF] Elizabeth Trujillo Evy [facility], [facility].; [employer]. Comment on above: Method: Tympanic 12-15-2023 08:51-0500 Body weight 64.41 kg Elizabeth Lomarcel ROSE [facility], [facility].; [employer]. 12-15-2023 08:51-0500 Diastolic blood pressure 78 mm[Hg] Elizabeth Trujillo Evy [facility].; [employer]. Comment on above: Patient Position: Sitting; Cuff Location : Left Arm; Cuff Size: Standard 12-15-2023 08:51-0500 Heart rate 101 /min Elizabeth Trujillo Evy [facility].; [employer]. Comment on above: Pattern: Regular 12-15-2023 08:51-0500 Inhaled oxygen concentration 20 % Elizabeth Trujillo Evy [facility], [facility].; [employer]. Comment on above: Room air 12-15-2023 08:51-0500 Inhaled oxygen concentration 21 % Elizabeth Trujillo Evy [facility], [facility].; [employer]. Comment on above: Room air 12-15-2023 08:51-0500 SaO2% (BldA) [Mass fraction] 98 % Elizabeth Lolabach [employer] [facility].; [employer]. 12-15-2023 08:51-0500 Systolic blood pressure 117 mm[Hg] Elizabeth Trujillo Evy [facility].; [employer]. Comment on above: Patient Position: Sitting; Cuff Location : Left Arm; Cuff Size: Standard 11-18-2023 15:49-0500 Body height 167.64 cm Elizabeth Trujillo Evy ROSE [facility].; [employer]. 11-18-2023 15:49-0500 Body mass index (BMI) [Ratio] 22.76 kg/m2 Elizabeth Ratliff [facility], [facility].; [employer] [facility]. 11-18-2023 15:49-0500 Body surface area Derived from formula 1.72 m2 Elizabeth Gastonach [facility], [facility].; [employer]. 11-18-2023 15:49-0500 Body temperature 99.4 [degF] Elizabeth Ratliff [facility].; [employer] Comment on above: Method: Tympanic 11-18-2023 15:49-0500 Body weight 63.96 kg Elizabeth Ratliff [employer] [facility], [facility].; [employer]. 11-18-2023 15:49-0500 Diastolic blood pressure 84 mm[Hg] Elizabeth Ratliff [facility] [employer] [facility].; [employer]. Comment on above: Patient Position: Sitting; Cuff Location : Left Arm; Cuff Size: Standard 11-18-2023 15:49-0500 Heart rate 101 /min Elizabeth Ratliff [facility].; [employer]. Comment on above: Pattern: Regular 11-18-2023 15:49-0500 Systolic blood pressure 129 mm[Hg] Elizabeth Ratliff [employer] [facility], [facility].; [employer]. Comment on above: Patient Position: Sitting; Cuff Location : Left Arm; Cuff Size: Standard 11-04-2023 09:42-0500 Body height 167.64 cm Pura Wyatt MA [facility] [employer]. 11-04-2023 09:42-0500 Body mass index (BMI) [Ratio] 22.76 kg/m2 Pura Wyatt MA [employer] [facility] [employer] 11-04-2023 09:42-0500 Body surface area Derived from formula 1.72 m2 Pura Wyatt MA [employer] [employer] [facility], [place] [employer]. 11-04-2023 09:42-0500 Body weight 63.96 kg Pura Edmundo FUENTES [facility].; [employer]. 11-04-2023 09:42-0500 Diastolic blood pressure 82 mm[Hg] Pura Wyatt MA [facility].; [employer]. Comment on above: Patient Position: Sitting; Cuff Location : Left Arm; Cuff Size: Standard 11-04-2023 09:42-0500 Heart rate 89 /min Pura Wyatt MA [facility].; [employer]. Comment on above: Pattern: Regular 11-04-2023 09:42-0500 Systolic blood pressure 122 mm[Hg] Pura Wyatt MA [facility].; [employer]. Comment on above: Patient Position: Sitting; Cuff Location : Left Arm; Cuff Size: Standard 10-07-2023 14:57-0500 Body height 167.64 cm Pura Wyatt MA [facility].; [employer] 10-07-2023 14:57-0500 Body mass index (BMI) [Ratio] 22.84 kg/m2 Pura Wyatt MA [employer] [facility].; [employer] 10-07-2023 14:57-0500 Body surface area Derived from formula 1.73 m2 Pura Wyatt MA [employer] [facility].; [employer] 10-07-2023 14:57-0500 Body temperature 98 [degF] Pura Wyatt MA [employer] [facility] Hospital[facility].; [employer]ut[employer] 10-07-2023 14:57-0500 Body weight 64.18 kg Pura Wyatt MA [employer] [facility].; [employer]. 10-07-2023 14:57-0500 Diastolic blood pressure 67 mm[Hg] Pura Wyatt MA [employer].; [employer]. Comment on above: Patient Position: Sitting; Cuff Location : Left Arm; Cuff Size: Standard 10-07-2023 14:57-0500 Heart rate 91 /min Pura Wyatt MA [employer].; [employer]. Comment on above: Pattern: Regular 10-07-2023 14:57-0500 Systolic blood pressure 116 mm[Hg] Pura Wyatt MA [facility], [facility].; [facility], [facility]. Comment on above: Patient Position: Sitting; Cuff Location : Left Arm; Cuff Size: Standard 08-03-2023 17:15-0400 Body temperature 98.7 [degF] Dr. Ildefonso Rodriguez Work Phone: [facility] 08-03-2023 17:15-0400 Diastolic blood pressure 76 mm[Hg] Dr. Ildefonso Rodriguez Work Phone: [facility] 08-03-2023 17:15-0400 Heart rate 115 /min Dr. Ildefonso Rodriguez Work Phone: [facility] 08-03-2023 17:15-0400 Respiratory rate 18 /min Dr. Ildefonso Rodriguez Work Phone: [facility] 08-03-2023 17:15-0400 SaO2% (BldA) [Mass fraction] 98 % Dr. Ildefonso Rodriguez Work Phone: [facility] 08-03-2023 17:15-0400 Systolic blood pressure 130 mm[Hg] Dr. Ildefonso Rodriguez Work Phone: [facility] 02-21-2023 15:05-0400 Body height 171.45 cm Elizabeth Ratliff LPN [facility], [facility].; [facility], [facility]. 02-21-2023 15:05-0400 Body mass index (BMI) [Ratio] 22.07 kg/m2 Elizabeth Ratliff LPN [facility], [facility].; [facility], [facility]. 02-21-2023 15:05-0400 Body surface area Derived from formula 1.76 m2 Elizabeth Ratliff LPN [facility], [facility].; [facility], [facility]. 02-21-2023 15:05-0400 Body weight 64.86 kg Elizabeth Ratliff LPN [facility], [facility].; [facility], [facility]. 02-21-2023 15:05-0400 Diastolic blood pressure 76 mm[Hg] Elizabeth Gastonach [employer] [facility], Inc.; [employer] [facility], [place] [employer]. Comment on above: Patient Position: Sitting; Cuff Location : Left Arm; Cuff Size: Standard 02-21-2023 15:05-0400 Heart rate 96 /min Elizabeth Trujillo Evy ROSE [facility], Inc.; [employer] Comment on above: Pattern: Regular 02-21-2023 15:05-0400 Systolic blood pressure 115 mm[Hg] Elizabeth Trujillo Evy ROSE [facility], Inc.; [employer] Comment on above: Patient Position: Sitting; Cuff Location : Left Arm; Cuff Size: Standard 12-23-2022 09:17-0500 Body height 171.45 cm Coty Kate LPN [facility], [facility].; [employer] [facility], Inc[facility] 12-23-2022 09:17-0500 Body mass index (BMI) [Ratio] 22.53 kg/m2 Cotyloulou Kate LPN [facility], [facility].; [facility], [facility]. 12-23-2022 09:17-0500 Body surface area Derived from formula 1.78 m2 Coty Kate LPSh[facility], [facility].; [employer] [facility], [facility]. 12-23-2022 09:17-0500 Body weight 66.23 kg Coty Kate LPN [facility], [facility].; [employer] [facility], [facility]. 12-23-2022 09:17-0500 Diastolic blood pressure 72 mm[Hg] Coty Kate LPN [facility], [facility].; [employer], [place] [employer]. Comment on above: Patient Position: Sitting; Cuff Location : Left Arm; Cuff Size: Standard 12-23-2022 09:17-0500 Heart rate 83 /min Coty Kate LPN [facility], [facility].; [employer], [place] [employer]. Comment on above: Pattern: Regular 12-23-2022 09:17-0500 Systolic blood pressure 113 mm[Hg] Coty Kate LPN [facility], Inc.; [employer], [place] [employer]. Comment on above: Patient Position: Sitting; Cuff Location : Left Arm; Cuff Size: Standard 06-29-2022 08:04-0400 Body height 171.45 cm Esperanza Wilson LPN [facility], [facility].; [facility]. 06-29-2022 08:04-0400 Body mass index (BMI) [Ratio] 22.99 kg/m2 Esperanza Wilson LPN [facility], [facility].; [facility]. 06-29-2022 08:04-0400 Body surface area Derived from formula 1.79 m2 Espearnza Wilson LPN [facility].; [facility] 06-29-2022 08:04-0400 Body weight 67.59 kg Esperanza Wilson LPN [facility], [facility].; [facility] 06-29-2022 08:04-0400 Diastolic blood pressure 81 mm[Hg] Esperanza Wilson LPN [facility].; [facility], [facility]. Comment on above: Patient Position: Sitting; Cuff Location : Left Arm; Cuff Size: Standard 06-29-2022 08:04-0400 Heart rate 97 /min Esperanza Wilson LPN [facility].; [facility], [facility]. Comment on above: Pattern: Regular 06-29-2022 08:04-0400 Systolic blood pressure 117 mm[Hg] Esperanza Wilson LPN [facility], [facility].; [facility], [facility]. Comment on above: Patient Position: Sitting; Cuff Location : Left Arm; Cuff Size: Standard 05-28-2020 14:03-0400 Body height 171.45 cm Laila Hernandez LPN [facility], [facility].; [facility], [facility]. 05-28-2020 14:03-0400 Body mass index (BMI) [Percentile] Per age and sex 39 % Laila Hernandez LPN [facility], [facility].; [facility], [facility]. 05-28-2020 14:03-0400 Body mass index (BMI) [Ratio] 20.68 kg/m2 Laila Hernandez LPN [facility], [facility].; [employer] [facility], [facility]. 05-28-2020 14:03-0400 Body surface area Derived from formula 1.71 m2 Laila Hernandez LPN [facility], [facility].; [employer]. 05-28-2020 14:03-0400 Body weight 60.78 kg Laila Butterfieldugg [employer].; [employer]. 05-28-2020 14:03-0400 Diastolic blood pressure 79 mm[Hg] Laila Zaugg [employer] [facility]ell[facility].; [employer], [place] [employer]. Comment on above: Patient Position: Sitting; Cuff Location : Left Arm; Cuff Size: Standard 05-28-2020 14:03-0400 Heart rate 112 /min Laila Butterfieldugg [employer], [place] [employer].; [employer], [place] [employer]. Comment on above: Pattern: Regular 05-28-2020 14:03-0400 Systolic blood pressure 120 mm[Hg] Laila Zaugg [employer].; [employer]. Comment on above: Patient Position: Sitting; Cuff Location : Left Arm; Cuff Size: Standard 01-30-2020 10:44-0400 Body height 166.37 cm Tonya Mehnaz [employer] Work Phone: [employer].; [employer]. 01-30-2020 10:44-0400 Body mass index (BMI) [Percentile] Per age and sex 67 % Tonya Mehnaz [employer] Work Phone: [employer].; [employer]. 01-30-2020 10:44-0400 Body mass index (BMI) [Ratio] 22.94 kg/m2 Tonya Mehnaz [employer] Work Phone: [employer].; [employer]. 01-30-2020 10:44-0400 Body surface area Derived from formula 1.71 m2 Tonya Mehnaz [employer] Work Phone: [employer].; [employer]. 01-30-2020 10:44-0400 Body weight 63.5 kg Tonya Mehnaz [employer] Work Phone: [employer]. 01-30-2020 10:44-0400 Diastolic blood pressure 83 mm[Hg] Tonya Mehnaz [employer] Work Phone: [employer].; [employer]. Comment on above: Patient Position: Sitting; Cuff Location : Left Arm; Cuff Size: Standard 01-30-2020 10:44-0400 Heart rate 84 /min Tonya Darby [employer] Work Phone: [employer].; [employer]. Comment on above: Pattern: Regular 01-30-2020 10:44-0400 Systolic blood pressure 138 mm[Hg] Tonya Darby [employer] Work Phone: [employer].; [employer]. Comment on above: Patient Position: Sitting; Cuff Location : Left Arm; Cuff Size: Standard 08-01-2019 09:22-0400 Body height 166.37 cm Ruth Maynard RN [employer].; [employer]. 08-01-2019 09:22-0400 Body mass index (BMI) [Percentile] Per age and sex 58 % Ruth Maynard RN [employer].; [employer]. 08-01-2019 09:22-0400 Body mass index (BMI) [Ratio] 21.94 kg/m2 Ruth Maynard RN [employer].; [employer]. 08-01-2019 09:22-0400 Body surface area Derived from formula 1.68 m2 Ruth Maynard RN [employer].; [employer]. 08-01-2019 09:22-0400 Body temperature 98.7 [degF] Ruth Maynard RN [employer].; [employer]. Comment on above: Method: Tympanic 08-01-2019 09:22-0400 Body weight 60.74 kg Ruth Maynard RN [employer].; [employer]. 08-01-2019 09:22-0400 Diastolic blood pressure 72 mm[Hg] Ruth Maynard RN [employer].; [employer]. Comment on above: Patient Position: Sitting; Cuff Location : Left Arm; Cuff Size: Standard 08-01-2019 09:22-0400 Heart rate 72 /min Ruth Maynard RN [employer].; [employer]. Comment on above: Pattern: Regular 08-01-2019 09:22-0400 Inhaled oxygen concentration 20 % Ruth Maynard RN [employer].; [employer]. Comment on above: Room air 08-01-2019 09:22-0400 Inhaled oxygen concentration 21 % Ruth Maynard RN [employer].; [employer]. Comment on above: Room air 08-01-2019 09:22-0400 SaO2% (BldA) [Mass fraction] 99 % uRth Maynard RN [employer].; [employer]. 08-01-2019 09:22-0400 Systolic blood pressure 112 mm[Hg] Ruth Maynard RN [employer].; [employer]. Comment on above: Patient Position: Sitting; Cuff Location : Left Arm; Cuff Size: Standard 05-30-2019 16:04-0400 Body height 166.37 cm VasoNova [employer] Work Phone: [employer].; [employer]. 05-30-2019 16:04-0400 Body mass index (BMI) [Percentile] Per age and sex 61 % [employer] Work Phone: [employer].; [employer]. 05-30-2019 16:04-0400 Body mass index (BMI) [Ratio] 22.12 kg/m2 [employer] Work Phone: [employer].; [employer]. 05-30-2019 16:04-0400 Body surface area Derived from formula 1.68 m2 [employer] Work Phone: [employer].; [employer]. 05-30-2019 16:04-0400 Body weight 61.24 kg VasoNova [employer] Work Phone: [employer]; [employer]. 05-30-2019 16:04-0400 Diastolic blood pressure 79 mm[Hg] Tonya Darby LPN Work Phone: [employer].; [employer]. Comment on above: Patient Position: Sitting; Cuff Location : Left Arm; Cuff Size: Standard 05-30-2019 16:04-0400 Heart rate 91 /min Tonya Darby [employer] Work Phone: [employer].; [employer]. Comment on above: Pattern: Regular 05-30-2019 16:04-0400 Systolic blood pressure 122 mm[Hg] Tonya Darby [employer] Work Phone: [employer].; [employer]. Comment on above: Patient Position: Sitting; Cuff Location : Left Arm; Cuff Size: Standard 04-06-2018 13:10-0400 Body height 166.37 cm Ruth Maynard RN [employer] [place] [employer] 04-06-2018 13:10-0400 Body mass index (BMI) [Percentile] Per age and sex 66 % Ruth Maynard RN [employer].; [employer]. 04-06-2018 13:10-0400 Body mass index (BMI) [Ratio] 22.12 kg/m2 Ruth Maynard RN [employer].; [employer]. 04-06-2018 13:10-0400 Body surface area Derived from formula 1.68 m2 Ruth Maynard RN [employer].; [employer]. 04-06-2018 13:10-0400 Body temperature 98.5 [degF] Ruth Maynard RN [employer].; [employer]. Comment on above: Method: Tympanic 04-06-2018 13:10-0400 Body weight 61.24 kg Ruth Maynard RN [employer].; [place] [employer] 01-10-2018 16:12-0500 Body height 166.37 cm Denia Silva RN [employer].; [employer]. 01-10-2018 16:12-0500 Body mass index (BMI) [Percentile] Per age and sex 71 % Denia Silva RN [employer].; [employer]. 01-10-2018 16:12-0500 Body mass index (BMI) [Ratio] 22.61 kg/m2 Denia Silva RN [employer].; [place] [employer] 01-10-2018 16:12-0500 Body surface area Derived from formula 1.7 m2 Denia Silva RN [employer].; [employer]. 01-10-2018 16:12-0500 Body temperature 99 [degF] Denia Silva RN [employer].; [employer]. Comment on above: Method: Tympanic 01-10-2018 16:12-0500 Body weight 62.6 kg Denia Silva RN [employer].; [employer]. 01-10-2018 16:12-0500 Diastolic blood pressure 74 mm[Hg] Denia Silva RN [employer].; [employer]. Comment on above: Patient Position: Sitting; Cuff Location : Left Arm; Cuff Size: Standard 01-10-2018 16:12-0500 Heart rate 87 /min Denia Silva RN [employer].; [employer]. Comment on above: Pattern: Regular 01-10-2018 16:12-0500 Systolic blood pressure 117 mm[Hg] Denia Silva RN [employer].; [employer]. Comment on above: Patient Position: Sitting; Cuff Location : Left Arm; Cuff Size: Standard 12-26-2017 16:17-0500 Body height 166.37 cm Tonya Mehnaz [facility] Work Phone: [employer].; [employer]. 12-26-2017 16:17-0500 Body mass index (BMI) [Percentile] Per age and sex 67 % Tonya [facility] Work Phone: [employer].; [employer]. 12-26-2017 16:17-0500 Body mass index (BMI) [Ratio] 22.12 kg/m2 [employer] Work Phone: [employer].; [employer]. 12-26-2017 16:17-0500 Body surface area Derived from formula 1.68 m2 Tonya Mehnaz [employer] Work Phone: [employer].; [employer]. 12-26-2017 16:17-0500 Body weight 61.24 kg Tonya Mehnaz [employer] Work Phone: [employer].; [employer]. 12-26-2017 16:17-0500 Diastolic blood pressure 76 mm[Hg] Tonya Mehnaz [employer] Work Phone: [employer].; [employer]. Comment on above: Patient Position: Sitting; Cuff Location : Left Arm; Cuff Size: Standard 12-26-2017 16:17-0500 Systolic blood pressure 122 mm[Hg] Tonya Mehnaz [employer] Work Phone: [employer].; [employer]. Comment on above: Patient Position: Sitting; Cuff Location : Left Arm; Cuff Size: Standard 06-09-2017 11:090400 Body height 166.37 cm Denia Silva RN [employer].; [employer]. 06-09-2017 11:09-0400 Body mass index (BMI) [Percentile] Per age and sex 61 % Denia Silva RN [employer].; [employer]. 06-09-2017 11:09-0400 Body mass index (BMI) [Ratio] 21.3 kg/m2 Denia Silva RN [employer].; [employer]. 06-09-2017 11:09-0400 Body surface area Derived from formula 1.66 m2 Denia Silva RN [employer].; [employer]. 06-09-2017 11:090400 Body weight 58.97 kg Denia Silva RN [employer].; [employer]. 06-09-2017 11:09-0400 Diastolic blood pressure 66 mm[Hg] Denia Silva RN [employer].; [employer]. Comment on above: Patient Position: Sitting; Cuff Location : Left Arm; Cuff Size: Standard 06-09-2017 11:09-0400 Heart rate 76 /min Denia Silva RN [employer].; [employer]. Comment on above: Pattern: Regular 06-09-2017 11:09-0400 Systolic blood pressure 101 mm[Hg] Denia Silva RN [employer].; [employer]. Comment on above: Patient Position: Sitting; Cuff Location : Left Arm; Cuff Size: Standard 01-12-2017 16:29-0500 Body temperature 98.5 [degF] Tonya Mehnaz [employer] Work Phone: [employer].; [employer]. Comment on above: Method: Tympanic 01-12-2017 16:29-0500 Body weight 58.06 kg Tonya Mehnaz [employer] Work Phone: [employer].; [employer]. 10-07-2016 10:35-0500 Body temperature 98.7 [degF] Neilee L Vess [employer].; [employer]. Comment on above: Method: Tympanic 10-07-2016 10:35-0500 Body weight 56.25 kg Neilee L Vess [employer]. 10-07-2016 10:35-0500 Diastolic blood pressure 67 mm[Hg] Neilee L Vess [employer].; [employer]. Comment on above: Patient Position: Sitting; Cuff Location : Left Arm; Cuff Size: Standard 10-07-2016 10:35-0500 Heart rate 97 /min Neilee L Vess [employer].; [employer]. Comment on above: Pattern: Regular 10-07-2016 10:35-0500 Systolic blood pressure 107 mm[Hg] Divya Trujillo LPN [employer].; [employer]. Comment on above: Patient Position: Sitting; Cuff Location : Left Arm; Cuff Size: Standard 05-31-2016 15:00-0400 Body height 167.64 cm Tonya Darby LPN Work Phone: [employer].; [employer]. 05-31-2016 15:00-0400 Body mass index (BMI) [Percentile] Per age and sex 48 % Tonya Darby [employer] Work Phone: [employer].; [employer]. 05-31-2016 15:00-0400 Body mass index (BMI) [Ratio] 19.69 kg/m2 Tonya Darby [employer] Work Phone: [employer]; [employer]. 05-31-2016 15:00-0400 Body surface area Derived from formula 1.62 m2 Tonya Darby [employer] Work Phone: [employer]; [employer]. 05-31-2016 15:00-0400 Body weight 55.34 kg Tonya Darby LPN Work Phone: [employer]; [employer]. 05-31-2016 15:00-0400 Diastolic blood pressure 60 mm[Hg] Tonya Darby [employer] Work Phone: [employer]; [employer]. Comment on above: Patient Position: Sitting; Cuff Location : Left Arm; Cuff Size: Standard 05-31-2016 15:00-0400 Heart rate 72 /min Tonya Darby [employer] Work Phone: [employer]; [employer]. Comment on above: Pattern: Regular 05-31-2016 15:00-0400 Systolic blood pressure 110 mm[Hg] Tonya Darby [employer] Work Phone: [employer]; [employer]. Comment on above: Patient Position: Sitting; Cuff Location : Left Arm; Cuff Size: Standard 09-24-2015 14:24-0500 Body height 163.83 cm Tonya Darby LPN Work Phone: [employer]; [employer]. 09-24-2015 14:24-0500 Body mass index (BMI) [Percentile] Per age and sex 65 % Tonya Darby LPN Work Phone: [employer]; [employer]. 09-24-2015 14:24-0500 Body mass index (BMI) [Ratio] 20.62 kg/m2 Tonya Darby LPN Work Phone: [employer]; [employer]. 09-24-2015 14:24-0500 Body surface area Derived from formula 1.59 m2 Tonya Darby LPN Work Phone: [employer]; [employer]. 09-24-2015 14:24-0500 Body temperature 97.3 [degF] Tonya Darby LPN Work Phone: [employer]; [employer]. Comment on above: Method: Tympanic 09-24-2015 14:24-0500 Body weight 55.34 kg Tonya Darby LPN Work Phone: [employer]; [employer]. 09-24-2015 14:24-0500 Diastolic blood pressure 68 mm[Hg] Tonya Darby LPN Work Phone: [employer]; [employer]. Comment on above: Patient Position: Sitting; Cuff Location : Left Arm; Cuff Size: Standard 09-24-2015 14:24-0500 Heart rate 93 /min Tonya Darby LPN Work Phone: [employer]; [employer] Comment on above: Pattern: Regular 09-24-2015 14:24-0500 Systolic blood pressure 120 mm[Hg] Tonya Darby LPN Work Phone: [employer]; [employer]. Comment on above: Patient Position: Sitting; Cuff Location : Left Arm; Cuff Size: Standard 06-18-2015 09:20-0400 Body height 163.83 cm Ildefonso Rodriguez MD Work Phone: [employer]; [employer]. 06-18-2015 09:20-0400 Body mass index (BMI) [Percentile] Per age and sex 45 % Ildefonso Rodriguez MD Work Phone: [employer]; [employer]. 06-18-2015 09:20-0400 Body mass index (BMI) [Ratio] 18.93 kg/m2 Ildefonso Rodriguez MD Work Phone: [employer]; [employer]. 06-18-2015 09:20-0400 Body surface area Derived from formula 1.54 m2 Ildefonso Rodriguez MD Work Phone: [employer]; [employer]. 06-18-2015 09:20-0400 Body weight 50.8 kg Ildefonso Rodriguez MD Work Phone: [employer]; [employer]. 06-18-2015 09:20-0400 Diastolic blood pressure 61 mm[Hg] Ildefonso Rodriguez MD Work Phone: [employer].; [employer]. Comment on above: Patient Position: Sitting; Cuff Location : Left Arm; Cuff Size: Standard 06-18-2015 09:20-0400 Heart rate 82 /min Ildefonso Rodriguez MD Work Phone: [employer]; [employer]. Comment on above: Pattern: Regular 06-18-2015 09:20-0400 Systolic blood pressure 113 mm[Hg] Ildefonso Rodriguez MD Work Phone: [employer].; [employer]. Comment on above: Patient Position: Sitting; Cuff Location : Left Arm; Cuff Size: Standard 05-15-2014 11:16-0400 Diastolic blood pressure 74 mm[Hg] Tonya Darby LPN Work Phone: [employer].; [employer]. Comment on above: Patient Position: Sitting; Cuff Location : Right Arm; Cuff Size: Standard 05-15-2014 11:16-0400 Heart rate 98 /min Tonya Darby LPN Work Phone: [employer].; [employer]. Comment on above: Pattern: Regular 05-15-2014 11:16-0400 Systolic blood pressure 117 mm[Hg] Tonya Darby [employer] Work Phone: [employer].; [employer]. Comment on above: Patient Position: Sitting; Cuff Location : Right Arm; Cuff Size: Standard 05-15-2014 11:16-0400 Body height 153.67 cm Tonya Darby LPN Work Phone: [employer].; [employer] 05-15-2014 11:16-0400 Body mass index (BMI) [Percentile] Per age and sex 22 % Tonya Darby LPN Work Phone: [employer].; [employer] 05-15-2014 11:16-0400 Body mass index (BMI) [Ratio] 16.71 kg/m2 Tonya Darby LPN Work Phone: [employer].; [employer]. 05-15-2014 11:16-0400 Body surface area Derived from formula 1.32 m2 Tonya Darby LPN Work Phone: [employer].; [employer]. 05-15-2014 11:16-0400 Body weight 39.46 kg Tonya Darby LPN Work Phone: [employer].; [employer]. 05-15-2014 11:16-0400 Diastolic blood pressure 72 mm[Hg] Tonya Toribioy [employer] Work Phone: [employer].; [employer]. Comment on above: Patient Position: Sitting; Cuff Location : Left Arm; Cuff Size: Standard 05-15-2014 11:16-0400 Heart rate 85 /min Tonya Darby LPN Work Phone: [facility], [facility].; [employer] [facility]. Comment on above: Pattern: Regular 05-15-2014 11:16-0400 Systolic blood pressure 109 mm[Hg] Tonya Darby LPN Work Phone: [facility], [facility].; [employer] [facility]. Comment on above: Patient Position: Sitting; Cuff Location : Left Arm; Cuff Size: Standard 01-16-2013 10:49-0500 Body height 146.05 cm Ciera Cortes [facility], [facility].; [employer] [facility], [employer]. 01-16-2013 10:49-0500 Body mass index (BMI) [Percentile] Per age and sex 24 % KimberlySyl Cortes [facility], [facility].; [facility], [employer]. 01-16-2013 10:49-0500 Body mass index (BMI) [Ratio] 16.16 kg/m2 KimberlySyl Cortes [facility], [facility].; [employer] [facility], [employer]. 01-16-2013 10:49-0500 Body surface area Derived from formula 1.2 m2 Kimberly Stuckey [facility], [facility].; [employer] [facility], [place]. 01-16-2013 10:49-0500 Body temperature 99.5 [degF] KimberlySyl Cortes [facility], [facility].; [employer] [facility]. Comment on above: Method: Tympanic 01-16-2013 10:49-0500 Body weight 34.47 kg Ciera Cortes [facility], [facility].; [employer] [facility], [place] [employer]. 01-16-2013 10:49-0500 Inhaled oxygen concentration 20 % [facility] Sophia [facility], [facility].; [employer]. Comment on above: Room air 01-16-2013 10:49-0500 Inhaled oxygen concentration 21 % KimberlySyl Cortes [facility], [facility].; [employer]. Comment on above: Room air 01-16-2013 10:49-0500 SaO2% (BldA) [Mass fraction] 96 % Ciera Cortes [facility].; [employer]. 10-27-2012 09:24-0500 Body height 148.84 cm Aurora Iyerbrandt [employer] [facility].; [employer] 10-27-2012 09:24-0500 Body mass index (BMI) [Percentile] Per age and sex 20 % Aurora Yusufcarmel [facility] [employer] [facility].; [employer] 10-27-2012 09:24-0500 Body mass index (BMI) [Ratio] 15.79 kg/m2 Aurora Moranfreddie [facility] [employer] [facility].; [employer] 10-27-2012 09:24-0500 Body surface area Derived from formula 1.22 m2 Aurora carmel [facility] [employer] [facility].; [employer] 10-27-2012 09:24-0500 Body temperature 96.2 [degF] Aurora Earl [facility] [employer] [facility].; [employer]. Comment on above: Method: Tympanic 10-27-2012 09:24-0500 Body weight 34.98 kg Aurora Earl MILTON [employer] [facility].; [employer]. 03-23-2011 14:43-0400 Body height 137.16 cm Ildefonso Rodriguez MD Work Phone: [employer]. 03-23-2011 14:43-0400 Body mass index (BMI) [Percentile] Per age and sex 43 % Ildefonso Rodriguez MD Work Phone: [employer] 03-23-2011 14:43-0400 Body mass index (BMI) [Ratio] 16.25 kg/m2 Ildefonso Rodriguez MD Work Phone: [employer] 03-23-2011 14:43-0400 Body surface area Derived from formula 1.09 m2 Ildefonso Rodriguez MD Work Phone: [employer] 03-23-2011 14:43-0400 Body temperature 97.6 [degF] Ildefonso Rodriguez MD Work Phone: [employer]; [employer] Comment on above: Method: Tympanic 03-23-2011 14:43-0400 Body weight 30.57 kg Ildefonso Rodriguez MD Work Phone: [employer] Encounters Encounter Date Encounter Type Care Provider Facility Start: 05-31-2025 End: 05-31-[address] Ildefonso Rodriguez MD [facility] Phone[facility] Start: 05-31-2025 End: 05-31-2025 Patient encounter procedure Nathen Abad [facility] Work Phone: Start: 11-19-2024 End: 11-19-2024 ambulatory Ildefonso Rodriguez Facility:[facility] Start: 10-17-2024 End: 10-17-2024 Medication Ildefonso Rodriguez MD Work Phone: [employer] Start: 10-17-2024 End: 10-17-2024 Office outpatient visit 15 minutes Ildefonso Rodriguez MD Work Phone: [employer] Start: 10-04-2024 End: 10-04-2024 ambulatory Ildefonso Vaccarieddie Facility:[facility] Start: 05-28-2024 End: 05-28-2024 ambulatory Ildefonso Vaccarieddie Facility:[facility] Start: 03-06-2024 ambulatory Ildefonso Vaccyamel Facili ty:[facility] Start: 03-05-2024 End: 03-05-2024 Orders Ildefonso Rodriguez MD Work Phone: [employer] Start: 02-29-2024 End: 02-29-2024 Office outpatient visit 25 minutes Ildefonso Rodriguez MD Work Phone: [employer] Start: 02-01-2024 End: 02-01-2024 Patient encounter procedure Ildefonso Rodriguez MD Work Phone: [facility], [place] [employer]. Start: 01-13-2024 End: 01-13-[address] Ildefonso Rodriguez Work Phone: [facility]Laboratory, Specimen Work Phone: Start: 01-13-2024 End: 01-13-[address] Ildefonso Rodriguez Work Phone: [facility] Work Phone: Start: 01-13-2024 End: 01-13-[address] Ildefonso Rodriguez Work Phone: [facility] Work Phone: Start: 01-13-2024 End: 01-13-2024 ambulatory Ildefonso Rodriguez Facility:[facility] Start: 12-30-2023 End: 12-30-[address] Ildefonso Rodriguez Work Phone: [facility] Work Phone: Start: 12-30-2023 End: 12-30-[address] Ildefonso Rodriguez Work Phone: [facility] Work Phone: Start: 12-30-2023 End: 12-30-2023 ambulatory Rae CAGE Facility:[facility] Start: 12-21-2023 End: 12-21-2023 Orders Ildefonso Rodriguez MD Work Phone: [facility], [place] [employer]. Start: 12-20-2023 ambulatory Tyree Phillips Facility:[facility] Start: 12-20-2023 Non-patient / Non-visit Dr. Celia Rodriguez Work Phone: [facility] Start: 12-19-2023 End: 12-19-[address] Ildefonso Rodriguez Work Phone: [facility] Work Phone: Start: 12-19-2023 End: 12-19-[address] Ildefonso Rodriguez Work Phone: [facility]-P[facility] Services/Neurology Work Phone: Start: 12-19-2023 End: 12-19-2023 [facility]ulatory [facility] Start: 12-15-2023 End: 12-15-[address] Ildefonso Rodriguez Work Phone: [facility] Work Phone: Start: 12-15-2023 End: 12-15-2023 Patient encounter procedure [facility] Work Phone: Start: 12-15-2023 End: 12-15-2023 Office outpatient visit 15 minutes Ildefonso Rodriguez MD Work Phone: [employer] Start: 12-15-2023 End: 12-15-2023 ambulatory [facility] Start: 12-14-2023 End: 12-14-2023 Orders Ildefonso Rodriguez MD Work Phone: [employer] Start: 12-12-2023 ambulatory ILDEFONSO RODRIGUEZ [facility] Start: 12-12-2023 End: 12-12-2023 ambulatory [facility] Work Phone: Start: 12-12-2023 End: 12-12-2023 Patient encounter procedure [facility] Work Phone: Start: 12-12-2023 End: 12-12-2023 Orders Ildefonso Rodriguez MD Work Phone: [employer] Start: 12-12-2023 End: 12-12-2023 ambulatory [facility] Start: 11-18-2023 End: 11-18-2023 Office outpatient visit 15 minutes Ildefonso Rodriguez MD Work Phone: [employer] Start: 11-04-2023 End: 11-04-2023 Office outpatient visit 15 minutes Ildefonso Rodriguez MD Work Phone: [employer] Start: 10-07-2023 End: 10-07-2023 Office outpatient visit 25 minutes Ildefonso Rodriguez MD Work Phone: [employer] Start: 08-05-[address] Ildefonso Rodriguez Work Phone: [facility]-Physical Therapy Work Phone: Start: 08-03-2023 End: 08-03-[address] Ildefonso Rodriguez Work Phone: [facility] Work Phone: Start: 08-03-2023 End: 08-03-[address] Ildefonso Rodriguez Work Phone: [facility] Work Phone: Start: 06-28-2023 End: 06-28-[address] Ildefonso Rodriguez Work Phone: [facility] Work Phone: Start: 02-21-2023 End: 02-21-2023 Procedure Ildefonso Rodriguez MD Work Phone: [employer] Start: 12-23-2022 End: 12-23-2022 Office outpatient visit 15 minutes Ildefonso Rodriguez MD Work Phone: [employer] Start: 12-09-2022 End: 12-10-2022 ambulatory BERTHA~[id number] JA STONE [facility] Start: 12-09-2022 End: 12-09-2022 Subsequent hospital visit by physician Bertha Michael APRN Work Phone: [facility] Comment on above: Sore throat Start: 09-21-2022 End: 09-21-2022 Medication Ildefonso Rodriguez MD Work Phone: [employer] Start: 08-11-2022 End: 08-11-2022 ambulatory DOMINGO JENNINGS [facility] Start: 07-20-2022 End: 07-21-2022 ambulatory [id number] DENIS DENIS [facility] Start: 07-20-2022 End: 07-20-2022 ambulatory DOMINGO JENNINGS [facility] Start: 07-20-2022 End: 07-20-2022 Subsequent hospital visit by physician Rodolfo Barrios APRN Work Phone: [facility] Comment on above: Cervical adenopathy Start: 06-29-2022 End: 06-29-2022 Office outpatient visit 15 minutes Ildefonso Rodriguez MD Work Phone: [employer] Start: 05-26-2022 End: 05-27-2022 [facility] Start: 02-11-2022 End: 02-12-2022 [facility] Start: 02-11-2022 End: 02-11-2022 Subsequent hospital visit by physician Gene Venegas [facility] Comment on above: Acne vulgaris; Encounter for long-term (current) use of other medications Start: 12-23-2021 End: 12-24-2021 ambulatory XOCHILT Rodri SHARON [facility] Start: 05-28-2020 End: 05-28-2020 Patient encounter status Ildefonso Rodriguez MD Work Phone: [employer] Start: 05-28-2020 End: 05-28-2020 Periodic preventive med est patient 18-39 yrs Ildefonso Rodriguez MD Work Phone: [employer] Start: 01-30-2020 End: 01-30-2020 Office outpatient visit 15 minutes Ildefonso Rodriguez MD Work Phone: [employer] Start: 08-01-2019 End: 08-01-2019 Office outpatient visit 25 minutes Ildefonso Rodriguez MD Work Phone: [employer] Start: 05-30-2019 End: 05-30-2019 Patient encounter procedure Ildefonso Rodriguez MD Work Phone: [employer] Start: 05-30-2019 End: 05-30-2019 Patient encounter status Ildefonso Rodriguez MD Work Phone: [employer] Start: 06-08-2018 End: 06-08-2018 Patient encounter procedure Ildefonso Rodriguez MD Work Phone: [employer] Start: 06-08-2018 End: 06-08-2018 Patient encounter status Divya Trujillo LPN [employer]. Start: 04-06-2018 End: 04-06-2018 Office outpatient visit 25 minutes Ildefonso Rodriguez MD Work Phone: [employer] Start: 01-10-2018 End: 01-10-2018 Office outpatient visit 15 minutes Ildefonso Rodriguez MD Work Phone: [employer] Start: 12-26-2017 End: 12-27-2017 Patient encounter procedure Ildefonso Rodriguez MD Work Phone: [employer] Start: 06-09-2017 End: 06-09-2017 Patient encounter procedure Ildefonso Rodriguez MD Work Phone: [employer] Start: 06-09-2017 End: 06-09-2017 Patient encounter status Ildefonso Rodriguez MD Work Phone: [employer]; [employer] Work Phone: Start: 01-17-2017 End: 01-17-2017 Orders Ildefonso Rodriguez MD Work Phone: [employer] Start: 01-12-2017 End: 01-12-2017 Patient encounter procedure Ildefonso Rodriguez MD Work Phone: [employer] Start: 12-13-2016 End: 12-13-2016 Orders Ildefonso Rodriguez MD Work Phone: [employer] Start: 10-07-2016 End: 10-07-2016 Patient encounter procedure Ildefonso Rodriguez MD Work Phone: [employer] Start: 05-31-2016 End: 06-02-2016 Patient encounter procedure Ildefonso Rodriguez MD Work Phone: [employer] Start: 05-31-2016 End: 06-02-2016 Patient encounter status Ildefonso Rodriguez MD Work Phone: [employer] Start: 09-24-2015 End: 09-24-2015 Patient encounter procedure Ildefonso Rodriguez MD Work Phone: [employer] Start: 06-18-2015 End: 06-18-2015 Patient encounter status Ildefonso Rodriguez MD Work Phone: [employer]; [employer] Start: 06-18-2015 End: 06-18-2015 Periodic preventive med est patient 12-s Ildefonso Rodriguez MD Work Phone: [employer] Start: 05-15-2014 End: 05-15-2014 Patient encounter procedure Ildefonso Rodriguez MD Work Phone: [employer] Start: 05-15-2014 End: 05-15-2014 Routine infant or child health check Ildefonso Rodriguez MD Work Phone: [employer]; [employer] Start: 02-26-2013 End: 02-26-2013 Orders Ildefonso Rodriguez MD Work Phone: [employer] Start: 02-07-2013 End: 02-07-2013 Medication Ildefonso Rodriguez MD Work Phone: [employer] Start: 01-16-2013 End: 01-16-2013 Patient encounter procedure Ildefonso Rodriguez MD Work Phone: [employer] Start: 10-27-2012 End: 10-27-2012 Patient encounter procedure Ildefonso Rodriguez MD Work Phone: [facility] [place] [employer] Start: 09-15-2012 End: 09-15-2012 Office outpatient visit 5 minutes Ildefonso Rodriguez MD Work Phone: [facility] Start: 03-23-2011 End: 03-24-2011 Patient encounter procedure Ildefonso Rodriguez MD Work Phone: [facility] Patient encounter status Tonya Darby [employer] Work Phone: [facility]; [facility] Patient encounter status Laila Hernandez [employer] [facility] Procedures Date Procedure Procedure Detail Performing Clinician Start: 01-13-[address] Ildefonso Rodriguez Work Phone: Start: 12-30-2023 CT of abdomen and pe lvis without contrast Dr. Ildefonso Rodrigeuz Work Phone: Start: 12-21-2023 End: 01-02-2024 Ct limited/localized follow up study Rae Avelar PA-C Work Phone: Start: 12-15-2023 End: 12-21-2023 Brncdilat rspse spmtry pre&post-brncdilat admn Rae Avelar PA-C Work Phone: Start: 12-15-2023 End: 12-16-2023 Chest x-ray Rae Sanchez Work Phone: Start: 12-12-2023 Urine culture Start: 11-04-2023 End: 11-04-2023 No Known Past Surgical History Pura Wyatt MA Start: 08-03-[address] Tova Rodriguez Work Phone: Start: 02-21-2023 End: 02-21-2023 Insj non-biodegradable drug delivery implant Deepa Faulkner CNCassandra Work Phone: Start: 12-09-2022 INFLUENZA A & B, SWAB/NW Bertha Michael GEOPHYSICAL MANAGER Work Phone: Start: 12-09-2022 SARS-COV-2 AG, QL Bertha Michael GEOPHYSICAL MANAGER Work Phone: Start: 12-09-2022 STREP-A SCREEN Bertha palomino GEOPHYSICAL MANAGER Work Phone: Start: 07-20-2022 CBC panel - Blood by Automated count Rodolfo Barrios GEOPHYSICAL MANAGER Work Phone: Start: 07-20-2022 Comprehensive metabo lic 2000 panel - Serum or Plasma Rodolfo Barrios GEOPHYSICAL MANAGER Work Phone: Start: 07-20-2022 MONO SEROLOGY Rodolfo cox GEOPHYSICAL MANAGER Work Phone: Start: 07-20-2022 TSH, HIGH SENSITIVITY K lucius Barrios GEOPHYSICAL MANAGER Work Phone: Start: 02-11-2022 Hepatic function 200 0 panel - Serum or Plasma Transcribe Order Start: 02-11-2022 Lipid panel Transcribe Order Start: 01-30-2020 End: 01-30-2020 Spmtry w/vc expiratory med w/wo mxml vol vntj Ildefonso Rodriguez MD Work Phone: Start: 05-30-2019 End: 05-30-2019 Body mass index documented Ildefonso gonzalez MD Work Phone: Start: 05-30-2019 End: 05-30-2019 Screening test visual acuity quantitative bilat Ildefonso Rodriguez MD Work Phone: Start: 06-08-2018 End: 06-08-2018 Screening test visual acuity quantitative sonjaat Ildefonso Rodriguez MD Work Phone: Start: 01-10-2018 End: 01-10-2018 [...] Screening test visual acuity quantitative bilat Ildefonso Rodriguez MD Work Phone: Start: 06-18-2015 End: 06-18-2015 Screening test visual acuity quantitative bilat Gustavo Harris MD Work Phone: Start: 05-15-2014 End: 05-15-2014 Screening test visual acuity quantitative bilat Ildefonso Rodriguez MD Work Phone: Start: 10-27-2012 End: 10-27-2012 Us exam, breast(s) Rae Sanchez Work Phone: Comment on above: Palpable breast lump x approx 3 months; occasionally painful with pressure but pain has worsened over the past week. No drainage from nipple. Has not started menses yet. Location - beneath areola and nipple. Microscopic examinat ion of cervical Papanicolaou smear Pura Wyatt MA Comment on above: Never Plan of Treatment Date Care Activity Detail Author Start: 06-25-2031 DTAP/TDAP/TD VACCINE (3 - Td or Tdap) DTAP/TDAP/TD VACCINE (3 - Td or Tdap) [facility] Start: 03-05-2024 Chest x-ray CHEST X-RAY, P A AND LATERAL ([id number]) Start: 05-Mar-2024 Intent [employer]. Start: 02-29-2024 End: 03-05-2024 Ct thorax w/contrast material [employer]; [employer] Start: 02-29-2024 Patient encounter procedure Medical; EXTENDED RTN - 1 mo f/u [employer]. Start: 29-Feb-2024 10:20-04:00 KYLE Avelar Appointment Request [employer]. Start: 12-21-2023 Brncspsm provocation eval director of program management spmtry w/admn agt BRONCHOPROVOCATION TESTING WITH METHACHOLINE ([id number]) Start: 21-Dec-2023 Intent Comments: See previous PFTs and proceed with Dr. Phillips's recommendation on that report [employer]; [employer] Comment on above: See previous PFTs an d proceed with Dr. Phillips's recommendation on that report Start: 12-21-2023 End: 12-23-2023 Ct abdomen & pelvis w/o contrast material [employer]; [employer] Comment on above: per kidney stone pro tocol Start: 12-21-2023 Ct limited/localized follow up study CT KUB ([id number]) Start: 21-Dec-2023 Intent [employer]; [employer] Start: 12-15-2023 Brncdilat rspse spmt ry pre&post-brncdilat admn PFT Protocol ([id number]) -- not in office Start: 15-Dec-2023 Intent [employer]; [employer] Start: 12-15-2023 Chest x-ray CHEST X-RAY, P A AND LATERAL ([id number]) Start: 15-Dec-2023 Intent [employer]; [employer]. Start: 12-15-2023 Plain chest X-ray Chest PA and Later [facility] Start: 12-15-2023 XR Chest PA and Lateral [facility] Start: 12-15-2023 Assay of thyroid stimulating hormone tsh TSH W/ REFL FREE T4 ([id number]) ([id number]) Start: 15-Dec-2023 9:15 Request [employer]; [employer] Start: 12-15-2023 Comprehensive metabo lic panel CMP w/ GFR* ([id number]) Start: 15-Dec-2023 9:15 Request [employer]; [employer] Start: 12-15-2023 Blood count complete auto&auto difrntl wbc CBC, PLATELETS & AUT DIFF (F) ([id number]) Start: 15-Dec-2023 9:15 Request [employer]; [employer] Start: 12-12-2023 Urnls dip stick/tabl et reagent auto microscopy URINALYSIS, W/ REFLEX TO CULTURE ([id number]) Start: 12-Dec-2023 Request [employer]; [employer] Start: 11-18-2023 Iadna chlamydia trachomatis amplified probe tq CHLAMYDIA TRACHOMATIS RNA,TMA-URINE ([id number]) Start: 18-Nov-2023 16:13 Request [employer] Start: 11-18-2023 Iadna neisseria gonorrhoeae amplified probe tq NEISSERIA GONORRHOEAE RNA,TMA- URINE ([id number]) Start: 18-Nov-2023 16:13 Request [employer]; [employer] Start: 11-18-2023 Culture bacterial quanttative colony count urine Urine Culture ([id number]) Start: 18-Nov-2023 13:12 Request [employer]; [employer] Start: 08-03-2023 Patient referral [facility] Work Phone: Start: 07-22-2022 Influenza vaccination [facility] Start: 03-13-2022 COVID-19 Vaccine (3 - Booster for Pfizer series) COVID-19 Vaccine (3 - Booster for Pfizer series) [facility] Start: 07-22-2021 Influenza vaccination INFLUENZA VACC INE [facility] Start: 2004 ANNUAL WELLNESS EXAM ANNUAL WELLNESS EXAM [facility] Start: 2001 Screening for Chlamy mahin trachomatis CHLAMYDIA SCREEN [facility] Start: 2001 Screening for malign ant neoplasm of cervix PAP SMEAR EVERY 3 YR (Cervical Cancer Screen) [facility] End: 12-09-2022 Cult, Beta Strep [facility] Work Phone: Comment on above: One Time for 1 Occur rences starting 12/09/2022 until 12/09/2022 Patient referral [facility] Work Phone: [facility] Immunizations Immunization Date Immunization Notes Care Provider Mitra bose 08-06-2021 COVID-Pfizer (30 MCG/0.3 ML) Ildefonso Rodriguez MD Work Phone: [facility]; [employer] 06-25-2021 tetanus toxoid, reduced diphtheria toxoid, and acellular pertussis vaccine, adsorbed Dr. Ildefonso Rodriguez Work Phone: [facility] 05-28-2020 Counseled parent on risks/benefits of vaccines (20371) Ildefonso Rodriguez MD Work Phone: [facility] [employer]; [employer] 05-30-2019 Meningococcal, MCV4, unspecified conjugate formulation(groups A, C, Y and W-135) Ildefonso Rodriguez MD Work Phone: [employer]; [employer] 05-30-2019 Counseled parent on risks/benefits of vaccines (07753) Ildefonso Rodriguez MD Work Phone: [facility] [employer]; [employer] 05-30-2019 meningococcal polysaccharide (groups A, C, Y and W-135) diphtheria toxoid conjugate vaccine (MCV4P) Ildefonso Rodriguez MD Work Phone: [facility]; [employer]. Comment on above: Site: Left DeltoidVI S Given: * MenACWY (07/14/18) 06-08-2018 Human Papillomavirus 9-valent vaccine Ildefonso Rodriguez MD Work Phone: [facility]; [employer] 06-08-2018 Counseled parent on risks/benefits of vaccines (97307) Ildefonso Rodriguez MD Work Phone: [employer]; [employer] 05-15-2014 tetanus toxoid, reduced diphtheria toxoid, and acellular pertussis vaccine, adsorbed Ildefonso Rodriguez MD Work Phone: [employer]; [employer] Comment on above: Site: Deltoid (Left) VIS Given: * TDAP, Td (03/29/2013) 09-15-2012 influenza, seasonal, injectable Ildefonso Rodriguez MD Work Phone: [facility]; [employer] Comment on above: Site: Deltoid (Left) VIS Given: * Inactivated Influenza Vaccine (07/01/09) * Inactivated Influenza Vaccine (06/15/11) * Influenza vaccine [id number], inactivated (05/22/2012) * VIS Given (Unspecified) 09-15-2012 IMMUNIZATION ADMIN ([id number]) Ildefonso Rodriguez MD Work Phone: [employer]; [employer] 09-15-2012 influenza virus vaccine, unspecified formulation Transcribe Order [facility] 09-04-2009 Influenza, pandemic formulation, split, adj, IM Ildefonso Rodriguez MD Work Phone: [employer]; [employer]. Comment on above: [id number] 06-02-2007 diphtheria, tetanus toxoids and acellular pertussis vaccine Ildefonso Rodriguez MD Work Phone: [facility]; [employer] 06-02-2007 measles, mumps and rubella virus vaccine Ildefonso Rodriguez MD Work Phone: [employer]; [employer] 06-02-2007 poliovirus vaccine, inactivated Ildefonso Rodriguez MD Work Phone: [employer]; [employer] 03-21-2003 diphtheria, tetanus toxoids and acellular pertussis vaccine Ildefonso Rodriguez MD Work Phone: [employer]; [employer] 03-21-2003 haemophilus influenz ae type b vaccine, PRP-T conjugate Ildefonso Rodriguez MD Work Phone: [employer]; [employer] 08-06-2002 measles, mumps and rubella virus vaccine Ildefonso Rodriguez MD Work Phone: [employer]; [employer] 01-24-2002 diphtheria, tetanus toxoids and acellular pertussis vaccine Ildefonso Rodriguez MD Work Phone: [facility] 01-24-2002 haemophilus influenz ae type b vaccine, PRP-T conjugate Ildefonso Rodriguez MD Work Phone: [facility].; [facility] 01-24-2002 poliovirus vaccine, inactivated Ildefonso Rodriguez MD Work Phone: [facility].; [facility] 2001 diphtheria, tetanus toxoids and acellular pertussis vaccine Ildefonso Rodriguez MD Work Phone: [facility]; [facility] 2001 haemophilus influenz ae type b vaccine, PRP-T conjugate Ildefonso Rodriguez MD Work Phone: [facility] 2001 hepatitis B vaccine, pediatric or pediatric/adolescent dosage Ildefonso Rodriguez MD Work Phone: [facility] [facility]; [facility] 2001 poliovirus vaccine, inactivated Ildefonso Rodriguez MD Work Phone: [facility].; [facility] 2001 diphtheria, tetanus toxoids and acellular pertussis vaccine Ildefonso Rodriguez MD Work Phone: [facility].; [facility] 2001 haemophilus influenz ae type b vaccine, PRP-T conjugate Ildefonso Rodriguez MD Work Phone: [facility].; [facility] 2001 hepatitis B vaccine, pediatric or pediatric/adolescent dosage Ildefonso Rodriguez MD Work Phone: [facility].; [employer] [facility] 2001 poliovirus vaccine, inactivated Ildefonso Rodriguez MD Work Phone: [facility].; [facility] 2001 hepatitis B vaccine, pediatric or pediatric/adolescent dosage Ildefonso Rodriguez MD Work Phone: [facility] varicella virus vaccine Ildefonso Rodriguez MD Work Phone: [facility]. Comment on above: history of disease NEGATED: Highlighted row has not occurred!05-30-2019 Human Papillomavirus 9-valent vaccine Ildefonso Rodriguez MD Work Phone: [facility] [employer] NEGATED: Highlighted row has not occurred!06-08-2018 Human Papillomavirus 9-valent vaccine Ildefonso Rodriguez MD Work Phone: [facility]; [facility]. Comment on above: VIS Given: * HPV - G ardasil-9 (10/22/16) Payers Date Payer Category Payer Self-pay [id number] Unknown [id number] 2018 Unknown [employer] [id number] 2018-Present [address] [place] [address] [id number] 2018 Unknown [id number] 2001 Unknown [id number] Unknown [id number] Unknown [id number] Unknown [id number] Unknown [id number] [id number] Unknown [id number] Unknown [id number] [id number] Unknown [id number] Unknown [id number] Unknown [id number] Unknown [id number] Unknown [id number] Social History Date Type Detail Facility Start: 12-16-2020 End: 01-13-2024 Tobacco smoking status NHIS Never smoked tobacco [facility] Start: 12-16-2020 Tobacco use and exposure Smokeless tobacco non-user [facility] Start: 2000 Sex Assigned At Not on file [facility] Start: 02-01-2022 End: 07-20-2022 Exposure to SARS-CoV-2 (event) Not sure [facility] Start: 08-03-2023 End: 01-13-2024 Tobacco smoking status RIIS Unknown if ever smoked [facility] Start: 2001 Sex Assigned At Female W [facility] Parents Parents [employer] Tobacco Use: Tobacco Use: ; N ever smoker. [employer] Tobacco/Smoke Exposure: Tobacco/Smoke Exposure: ; None. [employer] None [employer] Work Phone: Procedure note 12-20-2023 Note Date & Type Note Facility 12-20-2023 Procedure note [facility] Evaluation note Note Date & Type Note Facility Evaluation note Diagnosis Acne vulgaris Other acne Encounter for long-term (current) use of other medications documented in this encounter [facility] Evaluation note Note Date & Type Note Facility Evaluation note Diagnosis Cervical adenopathy Enlargement of lymph nodes documented in this encounter [facility] Evaluation note Note Date & Type Note Facility Evaluation note Diagnosis Sore throat Acute pharyngitis documented in this encounter [facility] Evaluation note Note Date & Type Note Facility Evaluation note Diagnosis Onset Date Physical exam, pre-employment acute Left ankle sprain acute [facility] Work Phone: Evaluation note Note Date & Type Note Facility Evaluation note No assessment information availa ble [facility] Work Phone: Evaluation note Note Date & Type Note Facility Evaluation note Diagnosis Onset Date Urinary tract infection none active [facility] Work Phone: Reason for referral (narrative) Note Date & Type Note Facility Reason for referral (narrative) No reason for referral information available 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 Mother Status:Active [...] good health. Mother Status:Active Comments:In good health. 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 RX HERE Reason for Visit Physical exam, pre-e mployment Left ankle sprain Chief Complaint Shortness of breath Shortness of breath Chief Complaint Shortness of breath Shortness of breath KIDNEY STONE Chief Complaint Shortness of breath Shortness of breath KIDNEY STONE Urinary tract infection Reason for Visit Urinary tract infect ion Chief Complaint Admit Date CONCERN FOR UTI May 31, 2025 4:07 pm Additional Source Comments Care Teams (unrecognized sec tion and content) Team Status: Active Member Role Status Dates Dr. Ildefonso Rodriguez MD Primary Care Provider Active Team Status: Active Member Role Status Dates Dr. Ildefonso Rodriguez MD Primary Care Provider Active NILES Patterson Referring Provider, Other Provid er Active Dr. Tyree Phillips MD Attending Provider Active Team Status: Inactive Member Role Status Dates Dr. Ildefonso Rodriguez MD Primary Care Provider Active NILES Patterson Attending Provider, Referring Pr kacy Active Team Status: Active Member Role Status Dates Dr. Ildefonso Rodriguez MD Primary Care Provider Active NILES Patterson Attending Provider, Referring Pr ovidcaroline Active Brand Designer Relationship Specialty Start Date End Date Domingo Jennings, GEOPHYSICAL MANAGER [address] [place] [id number] PCP - General Nurse Practitioner 01/09/21 Dread Ni MD [address] [place] [id number] Sports Medicine 01/19/21 Brand Designer Relationship Specialty Start Date End Date Domingo Jennings, GEOPHYSICAL MANAGER [address] [place] [id number] PCP - General Nurse Practitioner 01/09/21 Dread Ni MD [address] [place] [phone] Sports Medicine 01/19/21 Brand Designer Relationship Specialty Start Date End Date Domingo Jennings, GEOPHYSICAL MANAGER [address] [place] [phone] PCP - General Nurse Practitioner 01/09/21 Dread Ni MD [address] [place] [id number] Sports Medicine 01/19/21 Team Status: Inactive Member Role Status Dates Francois CAGE PA Attending Provider Active Team Status: Inactive Member Role Status Dates Francois CAGE PA Attending Provider Active Dr. Ildefonso Rodriguez MD Primary Care Provider, Refer ring Provider Active Team Status: Inactive Member Role Status Dates Dr. Ildefonso Rodriguez MD Primary Care Provider Active NILES Stoddard Attending Provider, Referring Pr ovider Active Team Status: Active Member Role Status Dates Dr. Ildefonso Rodriguez MD Primary Care Provider Active NILES Stoddard Attending Provider, Referring Pr ovider Active Team Status: Inactive Member Role Status Dates Dr. Ildefonso Rodriguez MD Primary Care Provider, Refer ring Provider Active Nathen CAGE PA Attending Provider Active Team Status: Inactive Member Role Status Dates Dr. Ildefonso Rodriguez MD Primary Care Provider Active Nathen Pollo PA, PA Attending Provider, Referring Provi randell Active Team Status: Active Member Role/Relationship Status Dates Dr. Ildefonso Rodriguez MD Primary Care Provider Active Team Status: Inactive Member Role/Relationship Status Dates Dr. Ildefonso Rodriguez MD Primary Care Provider Active Start: May 31, 2025 End: May 31, 2025 Dr. Ildefonso Rodriguez MD Referring Provider Active Start: May 31, 2025 End: May 31, 2025 NILES Mendieta Attending Provider Active Sta rt: May 31, 2025 End: May 31, 2025 INFORMATION SOURCE (unrecogn ized section and content) DATE CREATED AUTHOR 12/15/2022 [facility] DATE CREATED AUTHOR AUTHOR'S ORGANIZ ATION 11/07/2023 [facility] DATE CREATED AUTHOR AUTHOR'S ORGANIZ ATION 12/12/2023 [facility] DATE CREATED AUTHOR AUTHOR'S ORGANIZ ATION 11/20/2024 [facility] Goals (unrecognized section and content) Goals may be documented in a n alternate sectionGoals may be documented in an alternate sectionGoals may be documented in an alternate sectionGoals may be documented in an alternate sectionGoals may be documented in an alternate sectionGoals may be documented in an alternate sectionGoals may be documented in an alternate sectionGoals may be documented in an alternate section FOR RECORDS PERTAINING TO PATIENTS WHO ARE [...] BE BASED ON THE PRIMARY CLINICAL RECORDS. [employer] provides no warranty or guarantee of the accuracy or completeness of information in this document.
== END | disposition home or self-care (01) ==
PROVIDERS: PCP Family Medicine; Referring Provider Physician Assistant Surgical; Visit Provider Physician Assistant Surgical
DX: R82.90 Unspecified abnormal findings in urine (principal)
CPT/HCPCS: 87077; 87086; 87088; 87186

== ENCOUNTER → 2025-09-03 | Outpatient (CLI) | payer OTHER, SELFPAY ==
[2025-09-03 11:54] LABS: Hematocrit 45.8 % (37-47); Hemoglobin 15.3 g/dL (12.0-15.0); Immature Granulocytes Count 0.020 X10^3/uL (0.0-0.0); Mean Corp Hgb Conc 33.4 g/dL (32-36); Mean Corpuscular Volume 85.8 fL (81-99); Mean Platelet Vol. 9.4 fl (6.2-12.0); NRBC Flagged by Analyzer 0 % (0-5); Platelet Count 223 K/mm3 (150-450); RBC Distribution Width CV 11.8 % (11.6-14.6); RBC Distribution Width SD 36.9 fl (35.1-43.9); Red Blood Count 5.34 M/mm3 (4.2-5.4); White Blood Count 5.0 K/mm3 (4.4-11.0)
[2025-09-03 12:41] LABS: AST(SGOT) 21 U/L (<=31); Alanine Aminotransfer ALT/SGPT 22 U/L (<=34); Albumin, Serum 4.8 g/dL (3.5-5.0); Alkaline Phosphatase 74 U/L (35-104); Anion Gap 12 (5-15); BUN 16 mg/dL (4-19); BUN/Creat Ratio 19.4 RATIO (10-20); Calcium,Total 9.8 mg/dL (7.6-11.0); Carbon Dioxide 22.8 mmol/L (21.0-32.0); Chloride 104 mmol/L (98-108); Globulin 2.9 g/dL (2.2-4.2); Glucose 103 mg/dL (70-99); Potassium 3.8 mmol/L (3.3-5.1)
[2025-09-03 17:23] LABS: Free T3 3.5 pg/mL (2.18-3.98); Vitamin D,25 Hydroxy 43.0 ng/mL (30-100)
== END | disposition home or self-care (01) ==
PROVIDERS: PCP Family Medicine
DX: R06.02 Shortness of breath (principal); Z13.21 Encounter for screening for nutritional disorder
CPT/HCPCS: 36415; 80053; 82306; 84443; 84481; 85025

== ENCOUNTER → 2025-11-19 | Outpatient (CLI) | payer OTHER, SELFPAY ==
[2025-11-20 09:09] LABS: Mucous, Urine 0 SEEN /hpf (<or=2+); Red Blood Cells-Urine 0 SEEN /hpf (0-5)
[2025-11-20 10:16] LABS: Color, Urine Yellow (Yellow); Glucose, Dipstick Normal (Normal); Ketone-Dipstick Negative (Negative); Leukocyte Esterase-Dipstick Negative /ul (Negative); Nitrite-Dipstick Negative (Negative); Occult Blood-Urine Negative /ul (Negative); Protein-Dipstick 15 mg/dl (Negative); Specific Gravity, Urine 1.015 (1.002-1.030); Urine Bilirubin Dipstick Negative (Negative)
[2025-11-20 10:23] LABS: Squamous Epithelial Cells - UA 0-5 SEEN /hpf (5-10)
[2025-11-20 10:24] LABS: Calcium Oxalate Crystals Ur 1+ /hpf (<or=2+)
== END | disposition home or self-care (01) ==
LOC: LABSPEC 11-20 09:07
PROVIDERS: PCP Family Medicine; Visit Provider Physician Assistant
DX: R30.0 Dysuria (principal)
CPT/HCPCS: 81001; 87086; 87088